=== PATIENT | female | born 1950 | race Caucasian/White ===

== ENCOUNTER 2021-06-01 09:29 | Outpatient (REF) | payer MEDICARE, OTHER, SELFPAY ==
--- NOTE | ~2021-06-01 | MM_ITS ---
EXAMINATION: BONE DENSITOMETRY CLINICAL INDICATION: History of known osteoporosis, follow up. Other specified disorders of bone density and structure. Screening for osteoporosis. COMPARISON: Previous BD dated 02/05/2019 and baseline BD dated 01/04/2017. TECHNIQUE: Using a [employer] DXA System (software version: 13.1) manufactured by [employer], dual-energy x-ray absorptiometry was performed of the lumbar spine and left hip. The images are of good technical quality. Summary results are attached. FINDINGS: AP SPINE L1-L4: Current: BMD 0.901 g/cm2, Z-score 0.1, T-score -2.3, osteopenia, 5.4% decrease from previous, 1.0% increase from baseline (<5% change is not significant). Prior: BMD 0.952 g/cm2. Baseline: BMD 0.892 g/cm2. LEFT FEMUR, NECK: Current: BMD 0.631 g/cm2, Z-score -0.9, T-score -2.9, osteoporosis. Prior: BMD 0.617 g/cm2. Baseline: BMD 0.694 g/cm2. LEFT FEMUR, TOTAL: Current: BMD 0.648 g/cm2, Z-score -1.0, T-score -2.9, osteoporosis, 6.4% increase from previous, 5.1% decrease from baseline (<5% change is not significant). Prior: BMD 0.609 g/cm2. Baseline: BMD 0.683 g/cm2. IDENTIFIED RISK FACTORS: Menopause. Glucocorticoids, (chronic). Renal disease. Osteoporosis. Secondary osteoporosis, (intestinal or bowel disease). HISTORY OF FRACTURE: None listed. MEDICATIONS: Fosamax. Calcium or multivitamin. Vitamin D. MM/XR DEXA axial skeleton IMPRESSION: 1. DIAGNOSIS: Osteoporosis based on the lowest T-score value of -2.9 in the femoral neck and total femur applying World Health Organization criteria. 2. 10-YEAR FRACTURE RISK PREDICTION, FRAX: Major osteoporotic fracture (clinical spine, forearm, hip or shoulder) 25.1%. Hip fracture 9.7%. 3. Treatment Recommendations: NOF guidelines recommend consideration for treatment in postmenopausal women and men age 50 and older presenting with the following: -A hip or vertebral (clinical or morphometric) fracture. -T-score less than or equal to -2.5 at the femoral neck or spine after appropriate evaluation to exclude secondary causes. -Low bone mass at the hip or spine and a 10-year fracture probability by FRAX of greater than or equal to 3% for hip fracture or greater than or equal to 20% for major osteoporotic fracture based on the [place] adapted WHO algorithm. 4. Other Recommendations: All treatment decisions require clinical judgment and consideration of individual patient factors, including patient preferences, comorbidities, previous drug use, risk factors not captured in the FRAX model (e.g. frailty, falls, vitamin D deficiency, increased bone turnover, interval significant decline in bone density) and possible under or overestimation of fracture risk by FRAX. Additional medical evaluation for secondary cause of low bone mineral density may be appropriate. FUTURE SCAN RECOMMENDATION: People with diagnosed cases of osteoporosis or at high risk for fracture should have regular bone mineral density tests. For patients eligible for Medicare, routine testing is allowed once every 2 years. The testing frequency can be increased to one year for patients who have rapidly progressing disease, those who are receiving or discontinuing medical therapy to restore bone mass, or have additional risk factors.
== END 2021-06-01 09:30 | disposition home or self-care (01) ==
LOC: HO.MAMMO 09:29
PROVIDERS: Visit Provider Internal Medicine Endocrinology, Diabetes & Metabolism
DX: M81.0 Age-related osteoporosis without current pathological fracture (principal); Z72.0 Tobacco use; E27.49 Other adrenocortical insufficiency; N28.9 Disorder of kidney and ureter, unspecified; Z79.899 Other long term (current) drug therapy
CPT/HCPCS: 77080

== ENCOUNTER 2022-01-10 15:57 | Outpatient (REF) | payer MEDICARE, OTHER, SELFPAY ==
--- NOTE | ~2022-01-10 | XR_ITS ---
EXAMINATION: XR KNEE, BILATERAL CLINICAL INFORMATION: Bilateral knee pain. COMPARISON: None TECHNIQUE: AP and lateral views of each knee. FINDINGS: 2 views of the right knee demonstrate moderate narrowing of the medial joint space compartment with marginal spurring. There is also some narrowing of the patellofemoral joint with spurring of the patellofemoral joint. There is stippled calcification about the distal right femoral diaphysis. This may be related to medullary infarct or enchondroma. No fracture or effusion identified. 2 views of the left knee demonstrates some mild narrowing of the medial and lateral joint space compartments with mild marginal spurring. There is also mild degenerative spurring patellofemoral joint. A small left knee effusion is present. XR/XR knee LT 2V IMPRESSION: Mild tricompartment degenerative change of the left knee with small left effusion. Moderate degenerative change of the medial joint space compartment and patellofemoral joint of the right knee. Distal right femoral enchondroma or medullary infarct.
--- NOTE | ~2022-01-10 | XR_ITS ---
EXAMINATION: XR KNEE, BILATERAL CLINICAL INFORMATION: Bilateral knee pain. COMPARISON: None TECHNIQUE: AP and lateral views of each knee. FINDINGS: 2 views of the right knee demonstrate moderate narrowing of the medial joint space compartment with marginal spurring. There is also some narrowing of the patellofemoral joint with spurring of the patellofemoral joint. There is stippled calcification about the distal right femoral diaphysis. This may be related to medullary infarct or enchondroma. No fracture or effusion identified. 2 views of the left knee demonstrates some mild narrowing of the medial and lateral joint space compartments with mild marginal spurring. There is also mild degenerative spurring patellofemoral joint. A small left knee effusion is present. XR/XR knee RT 2V IMPRESSION: Mild tricompartment degenerative change of the left knee with small left effusion. Moderate degenerative change of the medial joint space compartment and patellofemoral joint of the right knee. Distal right femoral enchondroma or medullary infarct.
== END 2022-01-10 15:58 | disposition home or self-care (01) ==
LOC: HO.XRAY 15:57
PROVIDERS: Absent Provider Student in an Organized Health Care Education/Training Program; PCP Student in an Organized Health Care Education/Training Program; Visit Provider Internal Medicine
DX: M25.561 Pain in right knee (principal); M25.562 Pain in left knee
CPT/HCPCS: 73560

== ENCOUNTER → 2023-06-12 09:45 | Outpatient (BNV) | payer MEDICARE, SELFPAY | PROVIDERS: PCP Student in an Organized Health Care Education/Training Program; Visit Provider Radiology Diagnostic Radiology | DX: M81.0 Age-related osteoporosis without current pathological fracture (principal) | CPT/HCPCS: 77080 ==

== ENCOUNTER 2023-06-12 09:47 | Outpatient (REF) | payer MEDICARE, OTHER, SELFPAY ==
--- NOTE | ~2023-06-12 | MM_ITS ---
EXAMINATION: BONE DENSITOMETRY CLINICAL INDICATION: Osteoporosis. COMPARISON: Previous BD dated 06/01/2021 and baseline BD dated 01/04/2017. TECHNIQUE: Using a [employer] DXA System (software version: 13.1) manufactured by [employer], dual-energy x-ray absorptiometry was performed of the lumbar spine and left hip. The images are of good technical quality. Summary results are attached. FINDINGS: AP SPINE L1-L4: Current: BMD 0.932 g/cm2, Z-score 0.2, T-score -2.1, osteopenia, 3.4% increase from previous, 4.5% increase from baseline (<5% change is not significant). Prior: BMD 0.901 g/cm2. Baseline: BMD 0.892 g/cm2. LEFT FEMUR, NECK: Current: BMD 0.608 g/cm2, Z-score -1.0, T-score -3.1, osteoporosis. Prior: BMD 0.631 g/cm2. Baseline: BMD 0.694 g/cm2. LEFT FEMUR, TOTAL: Current: BMD 0.650 g/cm2, Z-score -0.9, T-score -2.8, osteoporosis, 3.4% increase from previous, 4.5% increase from baseline (<5% change is not significant). Prior: BMD 0.648 g/cm2. Baseline: BMD 0.683 g/cm2. IDENTIFIED RISK FACTORS: Osteoporosis, renal, height loss. Secondary osteoporosis, glucocorticoids (chronic), menopause. HISTORY OF FRACTURE: None listed. MEDICATIONS: Calcium supplements or multivitamin, vitamin D, bisphosphonates. MM/XR DEXA axial skeleton IMPRESSION: 1. DIAGNOSIS: Osteoporosis based on the lowest T-score value of -3.1 in the femoral neck applying World Health Organization criteria. 2. 10-YEAR FRACTURE RISK PREDICTION, FRAX: According to the guidelines, FRAX calculation should only be performed on patients in the osteopenia bone density category. Therefore, FRAX was not performed on this patient. 3. Treatment Recommendations: NOF guidelines recommend consideration for treatment in postmenopausal women and men age 50 and older presenting with the following: -A hip or vertebral (clinical or morphometric) fracture. -T-score less than or equal to -2.5 at the femoral neck or spine after appropriate evaluation to exclude secondary causes. -Low bone mass at the hip or spine and a 10-year fracture probability by FRAX of greater than or equal to 3% for hip fracture or greater than or equal to 20% for major osteoporotic fracture based on the [place] adapted WHO algorithm. 4. Other Recommendations: All treatment decisions require clinical judgment and consideration of individual patient factors, including patient preferences, comorbidities, previous drug use, risk factors not captured in the FRAX model (e.g. frailty, falls, vitamin D deficiency, increased bone turnover, interval significant decline in bone density) and possible under or overestimation of fracture risk by FRAX. Additional medical evaluation for secondary cause of low bone mineral density may be appropriate. FUTURE SCAN RECOMMENDATION: People with diagnosed cases of osteoporosis or at high risk for fracture should have regular bone mineral density tests. For patients eligible for Medicare, routine testing is allowed once every 2 years. The testing frequency can be increased to one year for patients who have rapidly progressing disease, those who are receiving or discontinuing medical therapy to restore bone mass, or have additional risk factors.
== END 2023-06-12 09:48 | disposition home or self-care (01) ==
LOC: HO.MAMMO 09:47
PROVIDERS: PCP Student in an Organized Health Care Education/Training Program; Visit Provider Internal Medicine Endocrinology, Diabetes & Metabolism
DX: Z13.820 Encounter for screening for osteoporosis (principal); Z78.0 Asymptomatic menopausal state; M81.0 Age-related osteoporosis without current pathological fracture
CPT/HCPCS: 77080

== ENCOUNTER 2024-02-19 14:18 | Outpatient (REF) | payer MEDICARE, SELFPAY ==
--- NOTE | ~2024-02-19 | XR_ITS ---
EXAMINATION: XR HIP, LEFT CLINICAL INFORMATION: 73-year-old female with left anterior hip pain COMPARISON: None available. TECHNIQUE: Two views of the left hip. FINDINGS: No acute fracture or dislocation. Joint spaces are maintained. Calcified phleboliths in the pelvis. XR/XR hip LT min 2V IMPRESSION: * No acute osseous abnormality.
--- NOTE | ~2024-02-19 | XR_ITS ---
EXAMINATION: XR HAND/WRIST, RIGHT CLINICAL INFORMATION: Pain COMPARISON: None TECHNIQUE: 4 views of the hand left wrist FINDINGS: Tiny osseous fragment along the dorsal aspect of the fourth DIP joint may reflect sequela of age-indeterminate avulsion fracture, recommend correlation with point tenderness. Moderate osteophytosis of the hand/wrist with loss of first carpometacarpal joint space, spurring at the distal interphalangeal joints and subchondral cystic change in the scaphoid. No cortical erosion. Soft tissues are unremarkable. XR/XR hand wrist RT IMPRESSION: 1. Tiny osseous fragment along the dorsal aspect of the fourth DIP joint may reflect sequela of age-indeterminate avulsion fracture, recommend correlation with point tenderness. 2. Moderate degenerative changes of the hand/wrist, worst involving the first carpometacarpal joint space.
== END 2024-02-19 14:19 | disposition home or self-care (01) ==
LOC: HO.XRAY 14:18
PROVIDERS: PCP Student in an Organized Health Care Education/Training Program; Visit Provider Family Medicine
DX: M79.605 Pain in left leg (principal); M25.531 Pain in right wrist
CPT/HCPCS: 73110; 73130; 73502

== ENCOUNTER 2024-11-19 09:51 | Outpatient (REF) | payer MEDICARE, SELFPAY ==
--- OUTSIDE RECORDS SUMMARY | 2024-11-19 09:55 | XMS_ITS | Data Portability ---
Author Organization MATTHEW Kg Brito [facility] Surgeons [facility], [facility] Address [address] [place] [address] Care Team Providers Care Office Services Assistant Name Role Phone [employer] Primary Care Provider Assessment No assessment recorded. Plan of Treatment Reminders Order Date Submit Date Provider Last Modified By Organization Details Last Modified Time Details Appointments INJECTION ONLY 15 2024 09:45A Lorie Delgado PA-C Not available Not available Not available INJECTION ONLY 15 2024 01:00P Lorie Delgado PA-C Not available Not available Not available Lab None recorded. Referral None recorded. Procedures None recorded. Surgeries None recorded. Imaging XR, knee, 4 or more view - rm 201. $ V Bilat knee. DS 2023 024 [facility], [address] [facility] [address], [place], [address], 04/03/2024 13:53:10 Medication Orders None recorded. Patient TargetsNo targets recorded. Patient InstructionsNo instructions recorded. Reason for Referral None Reported. Results Created Date Observation Date Name Description Value Unit Range Abnormal Flag Note LastModifiedBy Organization Detail LastModifiedTime 07/17/2009/16/2020 imagi ng/di agnos tic resul t No observ ation record ed. [email or web address] Not Available 06/20 23:10:26 07/17/20 24 04/18/2023 imagi ng/di agnos tic resul t No observ ation record ed. [email or web address] Not Available 06/20 23:10:42 07/17/20 24 06/13/2023 imagi ng/di agnos tic resul t No observ ation record ed. [email or web address] Not Available 06/20 23:10:46 07/17/20 24 06/13/2023 imagi ng/di agnos tic resul t No observ ation record ed. [email or web address] Not Available 06/20 23:10:47 Result Notes None recorded. Problems Name Problem SNOMED Code Status Onset Date Resolution Date Notes Provider Name and Address Organization Details Recorded Time Idiopathic osteoarthri tis 786764194 Active 2019 Problem Code: M19.041; Problem Code Type: ICD-10; Status: 'A'; Not Available [facility] 10:57:43 Problem Notes None recorded. Procedures Surgical History Date Name Laterality Status Provider Name and Address Organization Details Recorded Time 4 Knee Kenalog 40 1cc Injection, Bilateral completed Michi Delgado, PA-C [address], [place], [address], [facility] 11/17/2024 14:12:22 4 Sports Knee 4&1 completed Michi Delgado, PA-C [address], [place], [address], [facility] 08/13/2024 07:38:18 4 Gel-One Knee Injection completed Michi Delgado PA-C [address], [place], [address], [facility] 05/25/2024 07:39:22 4 Knee Kenalog 40 1cc Injection, Bilateral completed Michi Delgado, PA-C [address], [place], [address], [facility] 03/13/2024 07:35:42 Imaging Results Imaging Date Name Status LastModified by Organiz ation Details LastModified Time 09/16/2020 imaging/diag nostic result completed Information not available 07/17/2024 23:10:26 04/18/2023 imaging/diag nostic result completed Information not available 07/17/2024 23:10:42 06/13/2023 imaging/diag nostic result completed Information not available 07/17/2024 23:10:46 06/13/2023 imaging/diag nostic result completed Information not available 07/17/2024 23:10:47 Procedure Notes None recorded. Medical Equipment None Reported. Allergies Allergen ID Allergen Name Allergen Category Reaction Reaction Severity Criticality Documentation Date Start Date Code Code System Note Provider Name and Address Organization Details Recorded Time 492333 Non-stero idal anti-infl ammatory agent (product) medicatio n Not available Not available Not available 10/20/2024 20031 005 SNOMED DAR[place]ING GAL[place] - [facility] 15:08:44 59563 Iodinated contrast media (substanc e) medicatio n Not available Not available Not available 01/20/20242017 08303 2004 SNOMED Aller gyNam e: 'ivp dye'; Not Available [facility] 4 11:38:48 63153 erythromy jennifer medicatio n Not available Not available Not available 01/20/20242022 4053 RxNorm Not Available [facility] 4 11:38:48 Medications Name Sig Start Date Stop Date Status Note LastModified by Organization Details LastModified Time medbox status USE DIRECTED active Not Available Not Available No t Available amoxicillin 500 mg capsule TAKE 1 CAPSULE BY MOUTH 3 TIMES DAILY FOR 7 DAYS. 03/12 completed Not Available Not Available Not Available vitamin A 2,400 mcg capsule TAKE ONE CAPSULE EVERY MORNING active Not Available Not Available No t Available loperamide 2 mg capsule TAKE TWO CAPSULES FOUR TIMES DAILY active Not Available Not Available No t Available valacyclovi r 1 gram tablet TAKE ONE TABLET EVERY TWELVE HOURS active Not Available Not Available No t Available alendronate 70 mg tablet TAKE 1 TABLET ONCE A WEEK WITH 6 TO 8 OZ OF WATER 30 MINUTES BEFORE FIRST FOOD OF THE DAY. DO NOT LIE DOWN FOR 30 MINUTES. active Not Available Not Available No t Available fluorouraci l 5 % topical cream Apply twice daily on face FOR two weeks, then twice weekly for maintenan ce. active Not Available Not Available No t Available clindamycin HCl 150 mg capsule TAKE ONE CAPSULE FOUR TIMES DAILY FOR 10 DAYS active Not Available Not Available No t Available diphenoxyla te-atropine 2.5 mg-0.025 mg tablet TAKE ONE TABLET BY MOUTH FOUR TIMES DAILY NEEDED active Not Available Not Available No t Available tramadol 50 mg tablet TAKE 1 TABLET EVERY 6 HOURS BY ORAL ROUTE AFTER MEAL(S). 2023 active Not Available Not Available Not Avai lable acetaminoph en 500 mg tablet TAKE TWO TABLETS EVERY 8 HOURS NEEDED FOR PAIN active Not Available Not Available No t Available Celebrex 200 mg capsule Take 1 capsule every day by oral route. 2023 active Not Available Not Available Not Avai lable meloxicam 7.5 mg tablet TAKE ONE TABLET TWICE DAILY WITH MEALS active Not Available Not Available No t Available magnesium oxide 400 mg (241.3 mg magnesium) tablet TAKE ONE TABLET EVERY MORNING active Not Available Not Available No t Available ferrous sulfate 325 mg (65 mg iron) tablet TAKE ONE TABLET THREE TIME DAILY IN THE MORNING, AT NOON, AND IN THE EVENING active Not Available Not Available No t Available triamcinolo ne acetonide 0.1 % topical ointment APPLY TO AFFECTED AREA TWICE DAILY FOR 2 WEEKS, BREAK FOR 1 WEEK THEN REPEAT CYCLE NEEDED active Not Available Not Available No t Available omeprazole 20 mg capsule,del ayed release TAKE 1 CAPSULE BY MOUTH EVERY MORNING BEFORE BREAKFAST active Not Available Not Available No t Available folic acid 1 mg tablet TAKE ONE TABLET AT NOON active Not Available Not Available No t Available furosemide 20 mg tablet TAKE 1 TABLET (20 MG TOTAL) BY MOUTH ONE TIME EACH DAY active Not Available Not Available No t Available pyridoxine (vitamin B6) 100 mg tablet TAKE ONE TABLET DAILY AT NOON active Not Available Not Available No t Available ergocalcife rol (vitamin D2) 1,250 mcg (50,000 unit) capsule TAKE ONE CAPSULE THREE TIMES PER WEEK (saturday, saturday , saturday) EVERY MORNING active Not Available Not Available No t Available paroxetine 40 mg tablet TAKE 1 TABLET BY MOUTH EVERY MORNING active Not Available Not Available No t Available cholecalcif dorian (vitamin D3) 125 mcg (5,000 unit) capsule TAKE ONE CAPSULE EVERY MORNING active Not Available Not Available No t Available metoprolol tartrate 25 mg tablet TAKE 1 TABLET BY MOUTH EVERY MORNING active Not Available Not Available No t Available calcium 250 mg (as citrate) tablet TAKE THREE TABLETS THREE TIMES DAILY active Not Available Not Available No t Available vitamin E (dl, acetate) 180 mg (400 unit) capsule TAKE ONE CAPSULE DAILY AT NOON active Not Available Not Available No t Available Cerovite Senior 0.4 mg-300 mcg-250 mcg tablet TAKE ONE TABLET EVERY EVENING active Not Available Not Available No t Available Gattex 30-Vial 5 mg subcutaneou s kit active Not Available Not Available Not Available Vitals Date Recorded Body height Body mass index (BMI) Body weight Provider Name and Address Organization Details Last Updated DateTime 03/12/2024 157.48 cm 21.6 kg/m2 18040.9 g XOCHILT BREMichelle [facility] 03/12/2024 09:36:53 Date Recorded Body height Provider Name an d Address Organization Details Last Updated DateTime 05/25/2024 157.48 cm XOCHILT LARNATHANKELLY [facility] 05/25/2024 10:59:47 Date Recorded Body height Body mass index (BMI) Body weight Provider Name and Address Organization Details Last Updated DateTime 08/13/2024 157.48 cm 21.6 kg/m2 33725.9 g CARITO GARCIA [facility] 08/13/2024 09:38:18 Date Recorded Body height Provider Name an d Address Organization Details Last Updated DateTime 11/04/2024 157.48 cm XOCHILT CONCEPCIONNATHANKELLY [facility] 11/04/2024 10:31:31 Social History None recorded. Functional Status None recorded. Mental Status None recorded. Family History Nothing Reported. Medical History No medical history recorded. Gynecological HistoryNo gynecological history recorded. Obstetrics History GPAL:G 0 P 0 0 0 0 Past Encounters Encounter ID Performer Location Encounter Start Date Encounter Closed Date Diagnosis/Indication Diagnosis SNOMED-CT Code Diagnosis ICD10 Code [id number] GHISLAINE [facility] [address] [facility] [address] 03/12/2024 09:18:13 04/03/2024 13:53:10 Pain of bilateral knee joints 1539267379 00915 M25.561 M25.562 Osteoarthr itis of right knee joint 3717932430 36256 M17.11 Osteoarthr itis of left knee joint 4385561622 76976 M17.12 [id number] Michi Delgado PA-C [address] [place] [address] 05/25/2024 10:58:41 06/12/2024 14:26:20 Osteoarthritis of right knee joint 8026635285 99899 M17.11 [id number] Michi Delgado PA-C [address] [place] [address] 08/13/2024 09:28:59 09/04/2024 11:25:42 Osteoarthritis of left knee joint 3766470934 05643 M17.12 [id number] Michi Delgado PA-C [address] [place] [address] 11/04/2024 10:29:23 11/17/2024 14:12:48 Osteoarthritis of right knee joint 0841891087 53456 M17.11 Osteoarthr itis of left knee joint 6713458987 68450 M17.12 Health Concerns Section Related Observation LastModified by Organization Detai ls LastModified Time None Recorded Concern Status LastModified by Organization Details LastModified Time None Recorded Advance Directives Directive None Recorded Payers Encounter Date Sequence Insurance Name Policy Number Policy Corona Covered Member ID Corona Member ID Guarantor Name 03/12/2024 2 [place] [id number] June Barger [id number] June Barger 03/12/2024 1 [place] [employer] [place] June Barger [id number] June Barger 05/25/2024 2 [place] [id number] June Barger [id number] 19 June Barger 05/25/2024 1 [place] [employer] [employer] [place] June Barger [id number] June Barger 08/13/2024 2 [place] [id number] June Barger [id number] June Barger 08/13/2024 1 [place] [employer] [place] June Barger [id number] 6 June Barger 11/04/2024 2 [place] [id number] June Barger [id number] June Barger 11/04/2024 1 [place] [facility] [employer] June Barger [id number] 6 June Barger Notes Date Note Type Note Provider Name and Address Organization Details Recorded Time 03/12/2024 text/html I am seeing the patient today under the supervision of Dr. Nuno who was available but who did not see the patient.History:[This pleasant woman presents today for what turns L3 bilaterally pain. X-rays states she has had problems for a number of years. In her left knee she had a cortisone injection with mild relief. She states pain has been off and on. Mostly getting up from seated position. Now is more constant. She has pain radiates from her left hip down her left leg. Right knee gives her trouble also feels swollen at times. She has trouble bending getting out of a tub. Cannot get up from seated position on the side either. PMH/PSH/MEDS/ALL/FMH/S OC HX/ROS are reviewed in detail, updated and located in the patient's chart. General Exam: Vital signs are as noted belowMental status: Alert and lucid. Normal insight, affect and grooming.[employer]: Gross motor coordination is intact. No spasticity or clonus noted.Extremities: [Calves are soft non tender, skin intact. ]Orthopedic Examination:Patient has a negative straight leg raise bilaterally.Right Hip: [ ] Hip exam shows no tenderness to palpation. There is full range of motion throughout all planes without irritability. There is full muscle strength. There is negative straight leg raise. Negative for signs of impingement.Left Hip: [ ] Hip exam shows no tenderness to palpation. There is full range of motion throughout all planes without irritability. There is full muscle strength. There is negative straight leg raise. Negative for signs of impingement.Right Knee: Slight varus alignment. Tenderness to palpation medially. Mild effusion. No erythema or warmth. Range of motion 0-120.Tenderrness at the borders of the patella.Left Knee: Neutral alignment. Tenderness laterally as well as borders of the patella. Mild effusion. No erythema or warmth. Range of motion 0-120.Peripheral, vascular, lymphatic examination, skin, neurological, coordination, reflexes, sensation are within normal limits. X-rays ordered, obtained and reivewed at [facility], 4 views of the Knees bilaterally including a standing AP, Vera view, nonweightbearing lateral views, and merchant view. These radiographs demonstrate Endstage medial compartment arthritis on Vera view of the right knee lateral compartment [id number] on the left. Advanced patellofemoral arthritis right side more so than left. Assessment:Bilateral knee arthritis PLAN: The patient was thoroughly counseled today regarding knee condition. Its natural history and the options, both operative and nonoperative. The nature of knee replacement surgery, the potential risks, benefits, and complications, the magnitude of the surgery, the intensity of postoperative recovery as well as its elective nature was explained at length today. Issues regarding lifelong infection and activity precautions were reviewed. The longevity of the implants was discussed. The patient understands the potential need for revision surgery within the next 15 years. The patient understands the potential complexity of a revision situation as well.In regards to today's visit and in discussion of conservative treatment options. We have gone over Tylenol, use of anti-inflammatories, role of physical therapy, as well as intra-articular cortisone injections.After reviewing risks benefits and obtained verbal consent. The patient's Knees bilaterally were injected with 1 cc of Kenalog 40 mg/cc, 4 cc of Marcaine and 1/4%. They tolerated this procedure well. We may repeat cortisone injections every 3 months.If at any point the patient wishes to further pursue total knee arthroplasty should call our office be seen by either myself or one of our total joint surgeons and further booked for total knee replacement. [facility] speech recognition owner/photographer software was used to create portions of this document. An attempt at proofreading has been made to minimize errors. Please call for corrections. Michi Delgado PA-C [address], [place], [address], [facility] - [facility] 03/13/2024 07:36:15 05/25/2024 text/html I am seeing the patient today under the supervision of who was available but who did not see the patient. Reason For VisitPatient is here today for Martín shell 1 injection right knee. Patient reports no adverse reaction from previous injections. Physical Findings Evaluation of the knees reveal no evidence of infection, no significant joint effusion, no warmth, or erythema. The injection sites are benign. Calves are supple and nontender. 5/5 strength. Some discomfort with range of motion. Assessment? ? Osteoarthritis of knee -right knee Plan After meticulous sterile preparation, the right knee was injected with 1 vial of Martín gel 1. Post-injection precautions were reviewed. I recommend ice, restriction of activities and re-evaluation next week for follow up injection. Michi Delgado PA-C [address], [place], [address], [place] - [facility] 06/08/2024 07:48:44 08/13/2024 text/html I am seeing the patient today under the supervision of {{Nurys* Nas}} who was available but who did not see the patient. Chief ComplaintThe patient presents today for recheck of {{left* right}} knee osteoarthritis. Is known to have knee arthritis treated conservatively to this point with {{1 2 3*}} months relief of symptoms. Presents today for recheck secondary to increased knee pain. Past Medical/Surgical HistoryReviewed today, otherwise unchanged per intake sheet. Physical Findings General Appearance:?? Well developed. ?? In no acute distress.Musculoskelet al System:Knee:General/bi lateral: ?? No laxity of the knee.Right Knee: ? ? Medial aspect was tender on palpation. ?? No erythema. ?? No warmth.Left Knee: ? ? Medial aspect was tender on palpation. ?? No erythema. ?? No warmth.Musculoskeletal Scales:General/bilater al: ? ? Mild effusion noted.Neurological:?? Oriented to time, place, and person.Gait And Stance: ?? Normal.Psychiatric:?? Mood was appropriate to the affect. Left knee 0-120 degrees of flexion with discomfort. Assessment? ? Osteoarthritis of knee - PlanMore than 50% of todays visit was spent on direct patient counseling regarding their knee condition and treatment options both operative with knee arthroplasty and non-operative, including oral medications and injection therapy. After discussion, my clinical decision was to go forth with an intra-articular cortisone injection. After explaining risks and benefits, under meticulous aseptic technique, the knee was injected with, 1cc of Kenalog 40mgs and 4 cc of Marcaine 1/4%. They tolerated the procedures well. Post injection precautions reviewed. Follow up with us in 3 months for further discussion of total knee replacement surgery versus continued conservative treatment. we will obtain authorization for Martín gel 1 bilaterally Michi Delgado PA-C [address], [place], [address], [place] - [facility] 08/13/2024 12:32:05 11/04/2024 text/html I am seeing the patient today under the supervision of Dr. Nuno who was available but who did not see the patient.History:[This pleasant woman presents today for what turns L3 bilaterally pain. X-rays states she has had problems for a number of years. In her left knee she had a cortisone injection with mild relief. She states pain has been off and on. Mostly getting up from seated position. Now is more constant. She has pain radiates from her left hip down her left leg. Right knee gives her trouble also feels swollen at times. She has trouble bending getting out of a tub. Cannot get up from seated position on the side either. PMH/PSH/MEDS/ALL/FMH/S OC HX/ROS are reviewed in detail, updated and located in the patient's chart. General Exam: Vital signs are as noted belowMental status: Alert and lucid. Normal insight, affect and grooming.[employer]: Gross motor coordination is intact. No spasticity or clonus noted.Extremities: [Calves are soft non tender, skin intact. ]Orthopedic Examination:Patient has a negative straight leg raise bilaterally.Right Hip: [ ] Hip exam shows no tenderness to palpation. There is full range of motion throughout all planes without irritability. There is full muscle strength. There is negative straight leg raise. Negative for signs of impingement.Left Hip: [ ] Hip exam shows no tenderness to palpation. There is full range of motion throughout all planes without irritability. There is full muscle strength. There is negative straight leg raise. Negative for signs of impingement.Right Knee: Slight varus alignment. Tenderness to palpation medially. Mild effusion. No erythema or warmth. Range of motion 0-120.Tenderrness at the borders of the patella.Left Knee: Neutral alignment. Tenderness laterally as well as borders of the patella. Mild effusion. No erythema or warmth. Range of motion 0-120.Peripheral, vascular, lymphatic examination, skin, neurological, coordination, reflexes, sensation are within normal limits. X-rays ordered, obtained and [facility]wed at [facility], 4 views of the Knees bilaterally including a standing AP, Vera view, nonweightbearing lateral views, and merchant view. These radiographs demonstrate Endstage medial compartment arthritis on Vera view of the right knee lateral compartment [id number] on the left. Advanced patellofemoral arthritis right side more so than left. Assessment:Bilateral knee arthritis PLAN: The patient was thoroughly counseled today regarding knee condition. Its natural history and the options, both operative and nonoperative. The nature of knee replacement surgery, the potential risks, benefits, and complications, the magnitude of the surgery, the intensity of postoperative recovery as well as its elective nature was explained at length today. Issues regarding lifelong infection and activity precautions were reviewed. The longevity of the implants was discussed. The patient understands the potential need for revision surgery within the next 15 years. The patient understands the potential complexity of a revision situation as well.In regards to today's visit and in discussion of conservative treatment options. We have gone over Tylenol, use of anti-inflammatories, role of physical therapy, as well as intra-articular cortisone injections.After reviewing risks benefits and obtained verbal consent. The patient's Knees bilaterally were injected with 1 cc of Kenalog 40 mg/cc, 4 cc of Marcaine and 1/4%. They tolerated this procedure well. We may repeat cortisone injections every 3 months.If at any point the patient wishes to further pursue total knee arthroplasty should call our office be seen by either myself or one of our total joint surgeons and further booked for total knee replacement. [facility] speech recognition owner/photographer software was used to create portions of this document. An attempt at proofreading has been made to minimize errors. Please call for corrections. Michi Delgado PA-C [address], [place], [address], [place] - [facility] 11/17/2024 14:12:46 OBGyn Episode No OBEpisode recorded.
--- OUTSIDE RECORDS SUMMARY | 2024-11-19 09:55 | XMS_ITS | Continuity of Care Document ---
Author Organization [place] - [facility], [facility] Address [address] [place] [address] Assessment No assessment recorded. Plan of Treatment Reminders Order Date Submit Date Provider Last Modified By Organization Details Last Modified Time Details Appointments None record ed. Lab None record ed. Referral None record ed. Procedures None record ed. Surgeries None record ed. Imaging None record ed. Medication Orders None record ed. Patient TargetsNo targets recorded. Patient InstructionsNo instructions recorded. Reason for Referral None Reported. Problems Name Problem SNOMED Code Status Onset Date Resolution Date Notes Provider Name and Address Organization Details Recorded Time Candidal otitis externa 07795692 Active 2014 Candidal otitis externa; Note: Date Diagnosed : 08/23/2015 12:31 PM (B37.84) resolved Not [facility] 4 02:[facility] Ulcerativ e rhinitis [id number] Active 2018 Nasal mucositis (ulcerati ve); Note: Date Diagnosed : 10/23/2019 5:33 PM (J34.81) Nasal mucositis (ulcerati ve); Note: Date Diagnosed : 08/23/2015 12:33 PM (J34.81) [mapped from ICD9 code: 389.18] ; Start Date : 5 Not Available [facility] 4 02:19:41 Sensorine ural hearing loss of bilateral ears [id number] Active 2014 Sensorine ural hearing loss bilateral ly; Note: Date Diagnosed : 08/23/2015 11:58 AM (389.18) Sensori neural hearing loss, bilateral ; Note: Date Diagnosed : 08/23/2015 11:35 AM (H90.3) Not Available [facility] 4 02:19:34 Disorder of pharynx 92834651 Active 2014 Vestibuli tis Nasal; Note: Date Diagnosed : 08/23/2015 12:31 PM (478.20) Not Available [facility] 4 02:19:32 Otitis externa of bilateral ears [id number] 99098 Active 2014 Other otitis externa, bilateral ; Note: Date Diagnosed : 5 6:53 AM (H60.8X3) Not Available [facility] 4 02:19:48 Problem Notes None recorded. Medical Equipment None Reported. Allergies Allergen ID Allergen Name Allergen Category Reaction Reaction Severity Criticality Documentation Date Start Date Code Code System Note Provider Name and Address Organization Details Recorded Time 14470 Iodinated contrast media (substanc e) medicatio n other Not available Not available 03/31/2024 65092 2003 SNOMED React ion: unkno wn, unspe cifie d;; Not Available [facility] 4 00:51:34 88395 erythromy jennifer ethylsucc inate medicatio n other Not available Not available 03/31/2024 4056 RxNorm React ion: unkno wn, unspe cifie d;; Not Available [facility] 4 00:51:34 Medications Name Sig Start Date Stop Date Status Note LastModified by Organization Details LastModified Time loperamid e 2 mg capsule 2018 active Medicati on ID: [id number] D uration Value: 30 Brand Name: loperami de Send Method: E-Prescr ibed Sub s Allowed: subs OK Speci al Instruct ion: TAKE TWO CAPSULES FOUR TIMES DAILY Me dication GenericN peggy: loperami de Not Available Not Available Not Available Lotrisone 1 %-0.05 % topical cream 11/09 completed Medicati on ID: [id number] Pr escribed By Name: Cristiano Enriquez nd Name: Lotrison e Send Method: E-Prescr ibed Sub s Allowed: subs OK Speci al Instruct ion: apply to external ear tid X 2 weeks Me dication GenericN peggy: Lotrison e Not Available Not Available Not Available alendrona te 70 mg tablet 2018 active Medicati on ID: [id number] D uration Value: 28 Brand Name: alendron ate Send Method: E-Prescr ibed Sub s Allowed: subs OK Speci al Instruct ion: TAKE 1 TABLET ONCE A WEEK WITH 6 TO 8 OZ OF WATER 30 MINUTES BEFORE FI RST FOOD OF THE DAY. DO NOT LIE DOWN FOR 30 MINUTES. Medicat ionGener icName: alendron ate Not Available Not Available Not Available diphenoxy late-atro pine 2.5 mg-0.025 mg tablet 2014 active Medicati on ID: [id number] Du ration Value: 30 Brand Name: diphenox ylate-at ropine S end Method: E-Prescr ibed Sub s Allowed: subs OK Medic ationGen ericName : diphenox ylate-at ropine Not Available Not Available Not Available Remicade 100 mg intraveno us solution 2014 active Medicati on ID: [id number] Br and Name: Remicade Send Method: E-Prescr ibed Sub s Allowed: subs OK Medic ationGen ericName : Remicade Not Available Not Available Not Available azathiopr ine 50 mg tablet 2014 active Medicati on ID: [id number] Du ration Value: 30 Brand Name: azathiop rine Sen d Method: E-Prescr ibed Sub s Allowed: subs OK Medic ationGen ericName : azathiop rine Not Available Not Available Not Available amlodipin e 5 mg tablet 2018 active Medicati on ID: [id number] D uration Value: 90 Brand Name: amlodipi ne Send Method: E-Prescr ibed Sub s Allowed: subs OK Speci al Instruct ion: TAKE ONE TABLET BY MOUTH EVERY DAY Medi cationGe nericNam e: amlodipi ne Not Available Not Available Not Available triamcino lone acetonide 0.1 % topical cream 1 a small amount to affected area 2015 active Medicati on ID: [id number] D uration Value: 14 Prescri bed By Name: Yaneth osuna MD Brand Name: triamcin olone acetonid e Send Method: E-Prescr ibed Sub s Allowed: subs OK Medic ationGen ericName : triamcin olone acetonid e Not Available Not Available Not Available potassium citrate ER 10 mEq (1,080 mg) tablet,ex tended release 2018 active Medicati on ID: [id number] D uration Value: 30 Brand Name: renetta campos citrate Send Method: E-Prescr ibed Sub s Allowed: subs OK Speci al Instruct ion: TAKE ONE TABLET THREE TIMES DAILY Me dication GenericN peggy: renetta campos citrate Not Available Not Available Not Available diphenhyd ramine 25 mg capsule 2018 active Medicati on ID: [id number] D uration Value: 30 Brand Name: diphenhy dramine HCl Send Method: E-Prescr ibed Sub s Allowed: subs OK Speci al Instruct ion: TAKE TWO CAPSULES 20 TO 30 minutes BEFORE bedtime NEEDED Lorie Garzatutuic Name: diphenhy dramine HCl Not Available Not Available Not Available ferrous sulfate 325 mg (65 mg iron) tablet 2018 active Medicati on ID: [id number] D uration Value: 30 Brand Name: ferrous sulfate Send Method: E-Prescr ibed Sub s Allowed: subs OK Speci al Instruct ion: TAKE ONE TABLET THREE TIMES DAILY Me dication GenericN peggy: ferrous sulfate Not Available Not Available Not Available Vitamin B-6 100 mg tablet 2018 active Medicati on ID: [id number] D uration Value: 30 Brand Name: Vitamin B-6 Send Method: E-Prescr ibed Sub s Allowed: subs OK Speci al Instruct ion: TAKE ONE TABLET DAILY Me dication GenericN peggy: Vitamin B-6 Not Available Not Available Not Available beta carotene 10,000 unit capsule 2014 active Medicati on ID: [id number] Br and Name: beta carotene Send Method: E-Prescr ibed Sub s Allowed: subs OK Medic ationGen ericName : beta carotene Not Available Not Available Not Available omeprazol e 20 mg capsule,d elayed release 2014 active Medicati on ID: [id number] Du ration Value: 30 Brand Name: omeprazo le Send Method: E-Prescr ibed Sub s Allowed: subs OK Medic ationGen ericName : omeprazo le Not Available Not Available Not Available folic acid 1 mg tablet 2014 active Medicati on ID: [id number] Du ration Value: 30 Brand Name: folic acid Sen d Method: E-Prescr ibed Sub s Allowed: subs OK Medic ationGen ericName : folic acid Not Available Not Available Not Available hydrochlo rothiazid e 25 mg tablet 2018 active Medicati on ID: [id number] D uration Value: 90 Brand Name: hydrochl orothiaz jonnie Send Method: E-Prescr ibed Sub s Allowed: subs OK Speci al Instruct ion: TAKE ONE TABLET BY MOUTH EVERY DAY Medi cationGe nericNam e: hydrochl orothiaz jonnie Not Available Not Available Not Available mupirocin 2 % topical ointment 2018 active Medicati on ID: [id number] D uration Value: 14 Brand Name: mupiroci n Send Method: E-Prescr ibed Sub s Allowed: subs OK Speci al Instruct ion: APPLY TO THE AFFECTED AREA(S) SPARINGL Y THREE TIMES DAILY Me dication GenericN peggy: mupiroci n Not Available Not Available Not Available triamcino lone acetonide 0.1 % lotion 1 a small amount to skin 2014 active Medicati on ID: [id number] D uration Value: 14 Prescri bed By Name: Yaneth osuna MD Brand Name: triamcin olone acetonid e Send Method: E-Prescr ibed Sub s Allowed: subs OK Medic ationGen ericName : triamcin olone acetonid e Not Available Not Available Not Available paroxetin e 40 mg tablet 2014 active Medicati on ID: [id number] Du ration Value: 30 Brand Name: paroxeti ne HCl Send Method: E-Prescr ibed Sub s Allowed: subs OK Medic ationGen ericName : paroxeti ne HCl Not Available Not Available Not Available ferrous sulfate 325 mg (65 mg iron) tablet,de layed release 2014 active Medicati on ID: [id number] Br and Name: ferrous sulfate Send Method: E-Prescr ibed Sub s Allowed: subs OK Medic ationGen ericName : ferrous sulfate Not Available Not Available Not Available Vitamin D2 1,250 mcg (50,000 unit) capsule 2018 active Medicati on ID: [id number] D uration Value: 28 Brand Name: Vitamin D2 Send Method: E-Prescr ibed Sub s Allowed: subs OK Speci al Instruct ion: TAKE ONE CAPSULE BY MOUTH THREE TIMES A WEEK Med icationG enericNa me: Vitamin D2 Not Available Not Available Not Available clindamyc in 1 % lotion 2018 active Medicati on ID: [id number] D uration Value: 14 Brand Name: goyo rodriguez phosphat e Send Method: E-Prescr ibed Sub s Allowed: subs OK Speci al Instruct ion: Apply to leg once daily. Lorie kevyngerdaaidan Rex Name: goyo rodriguez phosphat e Not Available Not Available Not Available valsartan 40 mg tablet 2014 active Medicati on ID: [id number] Du ration Value: 30 Brand Name: valsarta n Send Method: E-Prescr ibed Sub s Allowed: subs OK Medic ationGen ericName : valsarta n Not Available Not Available Not Available Vitamin D3 25 mcg (1,000 unit) tablet 2014 active Medicati on ID: [id number] Du ration Value: 30 Brand Name: Vitamin D3 Send Method: E-Prescr ibed Sub s Allowed: subs OK Medic ationGen ericName : Vitamin D3 Not Available Not Available Not Available metoprolo l tartrate 25 mg tablet 2018 active Medicati on ID: [id number] D uration Value: 30 Brand Name: metoprol ol tartrate Send Method: E-Prescr ibed Sub s Allowed: subs OK Speci al Instruct ion: TAKE ONE TABLET DAILY Me dication GenericN peggy: metoprol ol tartrate Not Available Not Available Not Available calcium 250 mg (as citrate) tablet 2018 active Medicati on ID: [id number] D uration Value: 27 Brand Name: calcium citrate Send Method: E-Prescr ibed Sub s Allowed: subs OK Speci al Instruct ion: TAKE THREE TABLETS BY MOUTH THREE TIMES DAILY Me dication GenericN peggy: calcium citrate Not Available Not Available Not Available calcium 600 mg (as carbonate )-vitamin D3 10 mcg (400 unit) tablet 2014 active Medicati on ID: [id number] Br and Name: calcium carbonat e-vitami n D3 Send Method: E-Prescr ibed Sub s Allowed: subs OK Medic ationGen ericName : calcium carbonat e-vitami n D3 Not Available Not Available Not Available cholecalc iferol (vitamin D3) 125 mcg/mL (5,000 unit/mL) oral drops 2018 active Medicati on ID: [id number] D uration Value: 118 Brand Name: cholecal ciferol (vitamin D3) Send Method: E-Prescr ibed Sub s Allowed: subs OK Speci al Instruct ion: TK 1 ML PO QD Medic ationGen ericName : cholecal ciferol (vitamin D3) Not Available Not Available Not Available Vitals None Recorded Social History None recorded. Functional Status None recorded. Mental Status None recorded. Family History Nothing Reported. Medical History No medical history recorded. Gynecological HistoryNo gynecological history recorded. Obstetrics History GPAL:G 0 P 0 0 0 0 Past Encounters Encounter ID Performer Location Encounter Start Date Encounter Closed Date Diagnosis/Indication Diagnosis SNOMED-CT Code Diagnosis ICD10 Code [id number] [facility]ENNIFER DE LA [facility] [address] [address] 08/27/2024 09:38:53 08/31/2024 08:18:14 Sensorineural hearing loss of bilateral ears [id number] H90.3 Health Concerns Section Related Observation LastModified by Organization Detai ls LastModified Time None Recorded Concern Status LastModified by Organization Details LastModified Time None Recorded Payers Encounter Date Sequence Insurance Name Policy Number Policy Corona Covered Member ID Corona Member ID Guarantor Name 08/27/2024 2 [facility] June Barger [id number] June Barger 08/27/2024 1 MEDICARE [place]: [facility] June Barger [id number] 6 June Barger Notes Date Note Type Note Provider Name and Address Organization Details Recorded Time 08/27/2024 text/html Shortened appointment as she left 1 of her HAs at home. She got a new phone and her was having difficulty pairing the aids to the jimmy. He was able to connect it to the BT. I encouraged her to have him delete the jimmy and reinstall it which worked. She is concerned that Tap Control is still copnnected. I do not believe it is but I showed her on the jimmy how she can check and connect or disconnect it. I also explained that just by touching her aids it will not activate Tap Control and that a very deliberate double tap is needed to activate it. She will call if she continues to have issues. MORAIMA SEGURA, [facility] [address] [facility],[place] [address], [place], [address], [facility] - [facility] 08/27/2024 09:43:13 OBGyn Episode No OBEpisode recorded.
[2024-11-19 14:00] LABS: MANUAL DIFF FLAG NO
[2024-11-19 14:09] LABS: Basophils Absolute Auto 0.1 X10*3/uL (0.0-0.2); Basophils Percent Auto 0.7 % (0-2); Eosinophils Absolute Auto 0.3 X10*3/uL (0.0-0.4); Eosinophils Percent Auto 3.1 % (0-4); Hematocrit 38.5 % (37.0-47.0); Hemoglobin 12.3 g/dl (12.0-16.0); Imm Gran Abs Auto 0.03 X10*3/uL (0.00-0.03); Imm Gran Pct Auto 0.3 % (0.0-0.4); Lymphocytes Absolute Auto 1.6 X10*3/uL (1.2-4.9); Lymphocytes Percent Auto 17.6 % (20-40); Mean Corpuscular HGB Conc 31.9 g/dl (31.0-35.0); Mean Corpuscular Hemoglobin 31.8 pg (27.0-33.0); Mean Corpuscular Volume 99.5 fL (80.0-98.0); Mean Platelet Volume 11.1 fL (9.4-12.3); Monocytes Absolute Auto 0.7 X10*3/uL (0.1-1.2); Monocytes Percent Auto 8.3 % (2-11); Neutrophils Absolute Auto 6.2 x10*3/uL (2.0-8.3); Platelet Count 198 X10*3/uL (160-400); Red Blood Count 3.87 X10*6/uL (4.20-5.50); Red Cell Distribution Width 12.9 % (11.0-16.0); White Blood Count 8.8 X10*3/uL (4.8-10.8)
[2024-11-19 14:19] LABS: Alanine Aminotransferase 33 U/L (0-31); Albumin Level 3.3 g/dL (3.5-5.0); Alkaline Phosphatase 62 U/L (39-117); Anion Gap 10 (12-20); Aspartate Amino Transferase 34 U/L (5-31); Bilirubin Direct < 0.2 mg/dL (0.0-0.5); Bilirubin Total 0.2 mg/dL (0.0-1.0); Blood Urea Nitrogen 18 mg/dL (9-16); Calcium 8.3 mg/dL (8.4-10.2); Carbon Dioxide 24 mmol/L (22-29); Chloride 110 mmol/L (96-108); Cholesterol 118 mg/dL (<200); Estimated Glomerular Filt Rate 30; Glucose Random 84 mg/dL (60-115); HDL Cholesterol 39 mg/dL (>40); LDL Cholesterol Calculated 51 mg/dL (<100); Potassium 4.2 mmol/L (3.3-5.1); Sodium 140 mmol/L (135-145); Total Protein 5.7 g/dL (6.5-8.0); Triglycerides 144 mg/dL (<150)
== END 2024-11-19 09:52 | disposition home or self-care (01) ==
LOC: HO.CHCLDS 09:51
PROVIDERS: Visit Provider Student in an Organized Health Care Education/Training Program
DX: N18.2 Chronic kidney disease, stage 2 (mild) (principal); D63.1 Anemia in chronic kidney disease; I10 Essential (primary) hypertension
CPT/HCPCS: 36415; 80048; 80061; 80076; 85025

== ENCOUNTER 2024-12-12 10:23 | Outpatient (REF) | payer MEDICARE, SELFPAY ==
--- NOTE | ~2024-12-12 | XR_ITS ---
EXAMINATION: XR FOOT 3 OR MORE VIEWS LEFT HISTORY: left foot pain COMPARISON: There are no prior studies available for comparison. FINDINGS: Three views of the left foot are submitted. Osseous mineralization is normal. There is no fracture or dislocation. There is mild osteoarthritis of the 1st MTP joint with joint space narrowing and osteophyte formation. There are soft tissue calcifications between the 2nd and 3rd MTP joints. XR/XR foot LT min 3V IMPRESSION: Mild osteoarthritis of the 1st MTP joint. Soft tissue calcifications between the 2nd and 3rd MTP joints of uncertain significance. Electronically signed by: Ciro Abreu MD 12/14/2024 10:55 AM EST
--- OUTSIDE RECORDS SUMMARY | 2024-12-12 10:26 | XMS_ITS | Encounter Summary ---
Author Organization [employer] Address [address] [place] [id number] Care Team Providers Care Adjunct Physics Instructor Name Role Phone Sarah Roe MD Primary Care Provider [phone] Reason for Referral * Imaging (Routine) - Closed Specialty Diagnoses / Procedures Referred By Salinas bingham Referred To Contact Radiology Diagnoses Encounter for screening mammogram for breast cancer Procedures BI Mammogram Screening Tomosynthesis Bilateral Sarah Roe MD [address] [place] [address] Phone: tel: fax: [address] Phone: tel: fax: Referral ID Status Reason Start Date Expiration Date Visits Re quested Visits Authorized [id number] Closed 11/19/2024 11/19/2025 1 1 Encounter Details Date Type Department Care Team (Late st Contact Info) Description 11/19/2024 9:00 AM EST Office Visit [facility] [address] [place], [place] [phone] Sarah Roe MD [address] [place], [place] [phone] Essential hypertension (Primary Dx); Stage 3b chronic kidney disease (CMS/HCC); 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 I have dayron lazo 11/10/[address] you li ve. Do you have problems with any of the following? None of the above 11/10/2024 Food Insecurity Answer Date Recorded Within the past 12 months, y ou worried that your food would run out before you got money to buy more: Never True 11/10/2024 Within the past 12 months,th e food you bought just didn't last and you didn't have enough money to get more: Never True Transportation Answer Date Recorded In the past 12 months, has l ack of transportation kept you from medical appts, meetings, work or from getting things needed for daily living? No 11/10/2024 Utilities Answer Date Recorded In the past 12 months, has t he electric, gas, oil or water company threatened to shut off services in your home? No 11/10/2024 Depression Answer Date Recorded Patient Health Questionnaire-2 Score 0 11/19/2024 Internet Access Answer Date Recorded Internet Access Q1 Yes 11/10/2024 Internet Access Q2 Not on file 11/10/2024 Comments Unknown Sex and Gender Information Value Date Recorded Sex Assigned at Female 09/17/2022 10:28 AM EDT Legal Sex Female 10:28 AM EDT Gender Identity Female 09/17/2022 10:28 AM EDT Sexual Orientation Straight 09/17/2022 10 :28 AM EDT documented as of this encounter Last Filed Vital Signs Vital Sign Reading Time Taken Comments Blood Pressure 136/74 11/19/2024 9:14 AM EST Pulse 74 11/19/2024 9:14 AM EST Temperature 37 ??C (98.6 ??F) 11/19/2024 9:14 AM EST Respiratory Rate 18 11/19/2024 9:14 AM EST Oxygen Saturation 98% 11/19/2024 9:14 AM EST Inhaled Oxygen Concentration - - Weight 51.2 kg (112 lb 12.8 oz) 11/19/2024 9:14 AM EST Height 154.9 cm (5' 1 ) 11/19/2024 9:14 AM EST Body Mass Index 21.31 11/19/2024 9:14 AM EST documented in this encounter Progress Notes * Sarah Roe MD - 11/19/2024 9:00 AM EST Subjective Patient ID: June Barger is a 74 y.o. female who presents for No chief complaint on file.. Hypertension This is a chronic problem. The current episode started more than 1 year ago. The problem is controlled. Pertinent negatives include no chest pain, headaches, neck pain, palpitations or shortness of breath. Risk factors for coronary artery disease include family history. Review of Systems Constitutional: Negative. Respiratory: Negative. Negative for shortness of breath. Cardiovascular: Negative for chest pain and palpitations. Gastrointestinal: Negative. Genitourinary: Negative. Musculoskeletal: Negative for neck pain. Neurological: Negative for headaches. Objective Physical Exam Constitutional: Appearance: Normal appearance. HENT: Head: Normocephalic and atraumatic. Right Ear: Tympanic membrane normal. Left Ear: Tympanic membrane normal. Mouth/Throat: Mouth: Mucous membranes are moist. Eyes: Pupils: Pupils are equal, round, and reactive to light. Cardiovascular: Rate and Rhythm: Normal rate and regular rhythm. Pulses: Normal pulses. Heart sounds: Normal heart sounds. Pulmonary: Effort: Pulmonary effort is normal. Breath sounds: Normal breath sounds. Abdominal: General: Abdomen is flat. Palpations: Abdomen is soft. Musculoskeletal: General: Normal range of motion. Skin: General: Skin is warm. Neurological: General: No focal deficit present. Mental Status: She is alert. Psychiatric: Mood and Affect: Mood normal. Behavior: Behavior normal. Assessment/Plan Diagnoses and all orders for this visit: Essential hypertension Maintain a low-sodium diet (less than 2 grams per day). Maintain a regular cardiovascular exercise program. Advised to maintain a low-fat, low-cholesterol diet. Counseled regarding importance of weight loss. Counseled re: potential co-morbidities including cardiovascular disease. 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 Comments: Follows up with GI uptodate with Colonoscopy Anxiety Comments: Stable on Paxil Encounter for screening mammogram for breast cancer - BI Mammogram Screening Tomosynthesis Bilateral; Future Anemia of chronic renal failure, stage 2 (mild) Comments: Labs ordered Orders: - CBC auto differential; Future documented in this encounter Plan of Treatment Not on file documented as of this encounter Procedures Procedure Name Priority Date/Time Associated Diagnosis Comments BI MAMMOGRAM SCREENING TOMOSYNTHESIS BILATERAL Routine 12/09/2024 Encounter for screening mammogram for breast cancer CBC WITH AUTO DIFFERENTIAL Routine 11/19/2024 9:53 AM EST Anemia of chronic renal failure, stage 2 (mild) HEPATIC FUNCTION PANEL Routine 11/19/2024 9:53 AM EST Essential hypertension LIPID PANEL, STANDARD Routine 11/19/2024 9:53 AM EST Essential hypertension BASIC METABOLIC PANEL Routine 11/19/2024 9:53 AM EST Essential hypertension documented in this encounter Results * BI Mammogram Screening Tomosynthesis Bilateral (12/09/2024) Anatomical Region Laterality Modality Breast Bilateral Mammography us Sarah Roe MD IMG BI PROCEDURES Final Result * (ABNORMAL) CBC auto differential (11/19/2024 9:53 AM EST) White Blood Count 8.8 4.8 - 10.8 X10*3/uL [facility] Red Blood Count 3.87(L) 4.20 - 5.50 X10*6/uL [facility] Hemoglobin 12.3 12.0 - 16.0 g/dl [facility] Hematocrit 38.5 37.0 - 47.0 % [facility] Mean Corpuscular Volume 99.5(H) 80.0 - 98.0 fL [facility] Mean Corpuscular Hemoglobin 31.8 27.0 - 33.0 pg [facility] Mean Corpuscular HGB Conc 31.9 31.0 - 35.0 g/dl [facility] Red Cell Distribution Width 12.9 11.0 - 16.0 % [facility] Platelet Count 198 160 - 400 X10*3/uL [facility] Mean Platelet Volume 11.1 9.4 - 12.3 fL [facility] Neutrophils Percent Auto 70.0 45 - 73 % [facility] Imm Gran Pct Auto 0.3 0.0 - 0.4 % [facility] Lymphocytes Percent Auto 17.6(L) 20 - 40 % [facility] Monocytes Percent Auto 8.3 2 - 11 % [facility] Eosinophils Percent Auto 3.1 0 - 4 % [facility] Basophils Percent Auto 0.7 0 - 2 % [facility] NRBC Pct Auto 0.0 0.0 - 0.2 /100WBC [facility] Neutrophils Absolute Auto 6.2 2.0 - 8.3 x10*3/uL [facility] Imm Gran Abs Auto 0.03 0.00 - 0.03 X10*3/uL [facility] Lymphocytes Absolute Auto 1.6 1.2 - 4.9 X10*3/uL [facility] Monocytes Absolute Auto 0.7 0.1 - 1.2 X10*3/uL [facility] Eosinophils Absolute Auto 0.3 0.0 - 0.4 X10*3/uL [facility] Basophils Absolute Auto 0.1 0.0 - 0.2 X10*3/uL [facility] NRBC Abs Auto 0.000 0.0 - 0.012 X10*3/uL [facility] Blood Venous blood specimen / Unknown 11/19/2024 9:53 AM EST 11/19/2024 1:57 PM EST us Sarah Roe MD LAB BLOOD ORDERABLES Final Resul t [facility] [address] [place] [phone] * (ABNORMAL) Hepatic Function Panel (11/19/2024 9:53 AM EST) Bilirubin, Total 0.2 0.0 - 1.0 mg/dL [facility] Bilirubin, Direct <0.2 0.0 - 0.5 mg/dL [facility] Aspartate Amino Transferase 34(H) 5 - 31 U/L [facility] Alanine Aminotransferase 33(H) 0 - 31 U/L [facility] Total Protein 5.7(L) 6.5 - 8.0 g/dL [facility] Albumin Level 3.3(L) 3.5 - 5.0 g/dL [facility] Alkaline Phosphatase 62 39 - 117 U/L [facility] Blood Venous blood specimen / Unknown 11/19/2024 9:53 AM EST 11/19/2024 1:57 PM EST us Sarah Roe MD LAB BLOOD ORDERABLES Final Resul t [facility] [address] [place] [phone] * (ABNORMAL) Lipid Panel, Standard (11/19/2024 9:53 AM EST) Triglycerides 144 <150 mg/dL [facility] Comment:Desirable Triglyceri de: less than 150 mg/dLBorderline High Triglyceride 150-199 mg/dLHigh Triglyceride: 200-499 mg/dLVery High Triglyceride: greater than or equal to 5OO mg/dL Cholesterol 118 <200 mg/dL [facility] Comment:Desirable Cholestero l: less than 200 mg/dLBorderline High Cholesterol: 200-239 mg/dLHigh Cholesterol: greater than 239 mg/dL LDL Cholesterol Calculated 51 <100 mg/dL [facility] Comment:Desirable LDL: less than 100 mg/dLNear Optimal/Above Optimal LDL: 110- 129 mg/dLBorderline High LDL: 130-159 mg/dLHigh LDL: 160-189 mg/dLVery High LDL: greater than or equal to 190 mg/dL HDL Cholesterol 39(L) >40 mg/dL [facility] Comment:Desirable HDL: great er than 40 mg/dL Note: This HDL assay may give artificially low results in patients with liver disease. Blood Venous blood specimen / Unknown 11/19/2024 9:53 AM EST 11/19/2024 1:57 PM EST Sarah Roe MD LAB BLOOD ORDERABLES Final Resul t Performing Organization Address [facility] Co de Phone Number [facility] [address] [place] [address] [phone] * (ABNORMAL) Basic Metabolic Panel (11/19/2024 9:53 AM EST) Sodium 140 135 - 145 mmol/L [facility] Potassium 4.2 3.3 - 5.1 mmol/L [facility] Chloride 110(H) 96 - 108 mmol/L [facility] Carbon Dioxide 24 22 - 29 mmol/L [facility] Anion Gap 10(L) 12 - 20 [facility] Urea Nitrogen (BUN) 18(H) 9 - 16 mg/dL [facility] Creatinine, Serum 1.69(H) 0.5 - 1.4 mg/dL [facility] Estimated Glomerular Filt Rate 30 [facility] Comment:Chronic Kidney Disea se: Estimated GFR < 60 mL/min/[id number] Kidney Disease: Estimated GFR < 15 mL/min/1.73m2 Glucose 84 60 - 115 mg/dL [facility] Calcium 8.3(L) 8.4 - 10.2 mg/dL [facility] Blood Venous blood specimen / Unknown 11/19/2024 9:53 AM EST 11/19/2024 1:57 PM EST Sarah Roe MD LAB BLOOD ORDERABLES Final Resul t Performing Organization Address [facility]/ZIP Co de Phone Number [facility] [address] [place] [phone] documented in this encounter Visit Diagnoses Diagnosis Essential hypertension- Primary Unspecified essential hypertension Stage 3b chronic kidney disease (CMS/HCC) 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
--- OUTSIDE RECORDS SUMMARY | 2024-12-12 10:26 | XMS_ITS | Encounter Summary ---
Author Organization [employer] Address [address] [facility] [address] [place] [address] Care Team Providers Care Choreography Director Name Role Phone Sarah Roe MD Primary Care Provider Encounter Details Date Type Department Care Team (Latest Contact Info) Description 11/19/2024 Travel Social History Tobacco Use Types Packs/Day Years [...] AM EDT documented as of this encounter Plan of Treatment Not on file documented as of this encounter Visit Diagnoses Not on filedocumented in this encounter Additional Health Concerns Assessment Noted Time PHQ-9 Depression Total Score: 0 11/19/19 25 9:15 AM EST documented as of this encounter Care Teams Choreography Director Relationship Specialty Start Date End Date Sarah Roe MD [address] [place] [address] PCP - General Family Medicine 09/19/15 documented as of this encounter
--- OUTSIDE RECORDS SUMMARY | 2024-12-12 10:26 | XMS_ITS | Data Portability ---
Author Organization [place] [facility], Allergy Address [address] [address] Assessment No assessment recorded. Plan of Treatment [...] Organization Details Recorded Time Candidal otitis externa [id number] Active 2014 Candidal otitis externa; Note: Date Diagnosed : 08/23/2015 12:31 PM (B37.84) resolved Not Available [facility] 4 02:19:45 Ulcerativ e rhinitis [id number] Active 2018 Nasal mucositis (ulcerati ve); Note: Date Diagnosed : 10/23/2019 5:33 PM (J34.81) Nasal mucositis (ulcerati ve); Note: Date Diagnosed : 08/23/2015 12:33 PM (J34.81) [mapped from ICD9 code: 389.18] ; Start Date : 5 Not Available [facility] 4 02:19:41 Sensorine ural hearing loss of bilateral ears [id number] Active 2014 Sensorine ural hearing loss bilateral ly; Note: Date Diagnosed : 08/23/2015 11:58 AM (389.18) Sensori neural hearing loss, bilateral ; Note: Date Diagnosed : 08/23/2015 11:35 AM (H90.3) Not Available [facility] 4 02:19:34 Disorder of pharynx 68101753 Active 2014 Vestibuli tis Nasal; Note: Date Diagnosed : 08/23/2015 12:31 PM (478.20) Not Available [facility] 4 02:19:32 Otitis externa of bilateral ears [id number] 66560 Active 2014 Other otitis externa, bilateral ; Note: Date Diagnosed : 5 6:53 AM (H60.8X3) Not Available [facility] 4 02:19:48 Problem Notes None recorded. Medical Equipment None Reported. Allergies Allergen ID Allergen Name Allergen Category Reaction Reaction Severity Criticality Documentation Date Start Date Code Code System Note Provider Name and Address Organization Details Recorded Time 99082 Iodinated contrast media (substanc e) medicatio n other Not available Not available 03/31/2024 12016 2003 SNOMED React ion: unkno wn, unspe cifie d;; Not Available [facility] 4 00:51:34 62721 erythromy jennifer ethylsucc inate medicatio n other Not available Not available 03/31/2024 4056 RxNorm React ion: unkno wn, unspe cifie d;; Not Available [facility] 4 00:51:34 Medications Name Sig Start Date Stop Date Status Note LastModified by Organization Details LastModified Time loperamid e 2 mg capsule 2018 active Medicati on ID: [id number] D uration Value: 30 Brand Name: loperami de Send Method: E-Prescr ibed Sub s Allowed: subs OK Speci al Instruct ion: TAKE TWO CAPSULES FOUR TIMES DAILY Me dication GenericN peggy: loperami de Not Available Not Available Not Available Lotrisone 1 %-0.05 % topical cream 11/09 completed Medicati on ID: [id number] Pr escribed By Name: Cristiano Enriquez nd Name: Lotrison e Send Method: E-Prescr ibed Sub s Allowed: subs OK Speci al Instruct ion: apply to external ear tid X 2 weeks Me dication GenericN peggy: Lotrison e Not Available Not Available Not Available alendrona te 70 mg tablet 2018 active Medicati on ID: [id number] D uration Value: 28 Brand Name: alendron [...] mg tablet 2014 active Medicati on ID: [id number] Du ration Value: 30 Brand Name: diphenox ylate-at ropine S end Method: E-Prescr ibed Sub s Allowed: subs OK Medic ationGen ericName : diphenox ylate-at ropine Not Available Not Available Not Available Remicade 100 mg intraveno us solution 2014 active Medicati on ID: [id number] Br and Name: Remicade Send Method: E-Prescr ibed Sub s Allowed: subs OK Medic ationGen ericName : Remicade Not Available Not Available Not Available azathiopr ine 50 mg tablet 2014 active Medicati on ID: [id number] Du ration Value: 30 Brand Name: azathiop rine Sen d Method: E-Prescr ibed Sub s Allowed: subs OK Medic ationGen ericName : azathiop rine Not Available Not Available Not Available amlodipin e 5 mg tablet 2018 active Medicati on ID: [id number] D uration Value: 90 Brand Name: amlodipi ne Send Method: E-Prescr ibed Sub s Allowed: subs OK Speci al Instruct ion: TAKE ONE TABLET BY MOUTH EVERY DAY Medi cationGe nericNam e: amlodipi ne Not Available Not Available Not Available triamcino lone acetonide 0.1 % topical cream 1 a small amount to affected area 2015 active Medicati on ID: [id number] D uration Value: 14 Prescri bed By Name: Yaneth osuna MD Brand Name: triamcin olone acetonid e Send Method: E-Prescr ibed Sub s Allowed: subs OK Medic ationGen ericName : triamcin olone acetonid e Not Available Not Available Not Available potassium citrate ER 10 mEq (1,080 mg) tablet,ex tended release 2018 active Medicati on ID: [id number] D uration Value: 30 Brand Name: renetta campos citrate Send Method: E-Prescr ibed Sub s Allowed: subs OK Speci al Instruct ion: TAKE ONE TABLET THREE TIMES DAILY Me dication GenericN peggy: renetta campos citrate Not Available Not Available Not Available diphenhyd ramine 25 mg capsule 2018 active Medicati on ID: [id number] D uration Value: 30 Brand Name: diphenhy dramine HCl Send Method: E-Prescr ibed Sub s Allowed: subs OK Speci al Instruct ion: TAKE TWO CAPSULES 20 TO 30 minutes BEFORE bedtime NEEDED Lorie Garzatutuic Name: diphenhy dramine HCl Not Available Not Available Not Available ferrous sulfate 325 mg (65 mg iron) tablet 2018 active Medicati on ID: [id number] D uration Value: 30 Brand Name: ferrous sulfate Send Method: E-Prescr ibed Sub s Allowed: subs OK Speci al Instruct ion: TAKE ONE TABLET THREE TIMES DAILY Me dication GenericN peggy: ferrous sulfate Not Available Not Available Not Available Vitamin B-6 100 mg tablet 2018 active Medicati on ID: [id number] D uration Value: 30 Brand Name: Vitamin B-6 Send Method: E-Prescr ibed Sub s Allowed: subs OK Speci al Instruct ion: TAKE ONE TABLET DAILY Me dication GenericN peggy: Vitamin B-6 Not Available Not Available Not Available beta carotene 10,000 unit capsule 2014 active Medicati on ID: [id number] Br and Name: beta carotene Send Method: E-Prescr ibed Sub s Allowed: subs OK Medic ationGen ericName : beta carotene Not Available Not Available Not Available omeprazol e 20 mg capsule,d elayed release 2014 active Medicati on ID: [id number] Du ration Value: 30 Brand Name: omeprazo le Send Method: E-Prescr ibed Sub s Allowed: subs OK Medic ationGen ericName : omeprazo le Not Available Not Available Not Available folic acid 1 mg tablet 2014 active Medicati on ID: [id number] Du ration Value: 30 Brand Name: folic acid Sen d Method: E-Prescr ibed Sub s Allowed: subs OK Medic ationGen ericName : folic acid Not Available Not Available Not Available hydrochlo rothiazid e 25 mg tablet 2018 active Medicati on ID: [id number] D uration Value: 90 Brand Name: hydrochl orothiaz jonnie Send Method: E-Prescr ibed Sub s Allowed: subs OK Speci al Instruct ion: TAKE ONE TABLET BY MOUTH EVERY DAY Medi cationGe nericNam e: hydrochl orothiaz jonnie Not Available Not Available Not Available mupirocin 2 % topical ointment 2018 active Medicati on ID: [id number] D uration Value: 14 Brand Name: mupiroci n Send Method: E-Prescr ibed Sub s Allowed: subs OK Speci al Instruct ion: APPLY TO THE AFFECTED AREA(S) SPARINGL Y THREE TIMES DAILY Me dication GenericN peggy: mupiroci n Not Available Not Available Not Available triamcino lone acetonide 0.1 % lotion 1 a small amount to skin 2014 active Medicati on ID: [id number] D uration Value: 14 Prescri bed By Name: Yaneth osuna MD Brand Name: triamcin olone acetonid e Send Method: E-Prescr ibed Sub s Allowed: subs OK Medic ationGen ericName : triamcin olone acetonid e Not Available Not Available Not Available paroxetin e 40 mg tablet 2014 active Medicati on ID: [id number] Du ration Value: 30 Brand Name: paroxeti ne HCl Send Method: E-Prescr ibed Sub s Allowed: subs OK Medic ationGen ericName : paroxeti ne HCl Not Available Not Available Not Available ferrous sulfate 325 mg (65 mg iron) tablet,de layed release 2014 active Medicati on ID: [id number] Br and Name: ferrous sulfate Send Method: E-Prescr ibed Sub s Allowed: subs OK Medic ationGen ericName : ferrous sulfate Not Available Not Available Not Available Vitamin D2 1,250 mcg (50,000 unit) capsule 2018 active Medicati on ID: [id number] D uration Value: 28 Brand Name: Vitamin D2 Send Method: E-Prescr ibed Sub s Allowed: subs OK Speci al Instruct ion: TAKE ONE CAPSULE BY MOUTH THREE TIMES A WEEK Med icationG enericNa me: Vitamin D2 Not Available Not Available Not Available clindamyc in 1 % lotion 2018 active Medicati on ID: 655328 D uration Value: 14 Brand Name: goyo rodriguez phosphat e Send Method: E-Prescr ibed Sub s Allowed: subs OK Speci al Instruct ion: Apply to leg once daily. Lorie monteiro Rex Name: goyo rodriguez phosphat e Not Available Not Available Not Available valsartan 40 mg tablet 2014 active Medicati on ID: 26927 Du ration Value: 30 Brand Name: valsarta n Send Method: E-Prescr ibed Sub s Allowed: subs OK Medic ationGen ericName : valsarta n Not Available Not Available Not Available Vitamin D3 25 mcg (1,000 unit) tablet 2014 active Medicati on ID: 23332 Du ration Value: 30 Brand Name: Vitamin D3 Send Method: E-Prescr ibed Sub s Allowed: subs OK Medic ationGen ericName : Vitamin D3 Not Available Not Available Not Available metoprolo l tartrate 25 mg tablet 2018 active Medicati on ID: [id number] D uration Value: 30 Brand Name: metoprol ol tartrate Send Method: E-Prescr ibed Sub s Allowed: subs OK Speci al Instruct ion: TAKE ONE TABLET DAILY Me dication GenericN peggy: metoprol ol tartrate Not Available Not Available Not Available calcium 250 mg (as citrate) tablet 2018 active Medicati on ID: [id number] D uration Value: 27 Brand Name: calcium citrate Send Method: E-Prescr ibed Sub s Allowed: subs OK Speci al Instruct ion: TAKE THREE TABLETS BY MOUTH THREE TIMES DAILY Me dication GenericN peggy: calcium citrate Not Available Not Available Not Available calcium 600 mg (as carbonate )-vitamin D3 10 mcg (400 unit) tablet 2014 active Medicati on ID: [id number] Br and Name: calcium carbonat e-vitami n D3 Send Method: E-Prescr ibed Sub s Allowed: subs OK Medic ationGen ericName : calcium carbonat e-vitami n D3 Not Available Not Available Not Available cholecalc iferol (vitamin D3) 125 mcg/mL (5,000 unit/mL) oral drops 2018 active Medicati on ID: [id number] D uration Value: 118 Brand Name: cholecal [...] Diagnosis/Indication Diagnosis SNOMED-CT Code Diagnosis ICD10 Code Diagnosis Note [id number] JENNIFER DE LA [facility] of [address] [address] 08/27/2024 09:38:53 08/31/2024 08:18:14 Sensorineural hearing loss of bilateral ears [id number] H90.3 Health Concerns Section Related Observation LastModified by Organization Detai ls LastModified Time None Recorded Concern Status LastModified by Organization Details LastModified Time None Recorded Advance Directives Directive None Recorded Payers Encounter Date Sequence Insurance Name Policy Number Policy Corona Covered Member ID Corona Member ID Guarantor Name 08/27/2024 2 [facility] June Barger [id number] 19 June Barger 08/27/2024 1 MEDICARE B-[place]: [employer] [facility] June Barger [id number] 6 June Barger Notes Date Note Type [...] she continues to have issues. MORAIMA SEGURA, [facility] [address] [facility],[place] [address], [place], [address], [facility] - [facility] 08/27/2024 09:43:13 OBGyn Episode No OBEpisode recorded.
--- OUTSIDE RECORDS SUMMARY | 2024-12-12 10:27 | XMS_ITS | Encounter Summary ---
Author Organization [employer] Address [address] [facility] 7[address] [place] [address] Care Team Providers Care Hospitality Host Name Role Phone Sarah Roe MD Primary Care Provider [phone] Reason for Visit * Reason Comments Foot Pain Encounter Details Date Type Department Care Team ([facility] st Contact Info) Description 12/12/2024 9:40 AM EST Office Visit [facility] [address] [place] [address] Left foot pain (Primary Dx) Social History Tobacco Use Types Packs/Day Years Used Date Smoking Tobacco: Never Smokeless Tobacco: Never Tobacco Cessation:Counseling Given: Not Answered Alcohol Use Standard Drinks/Week Comments Never 0 [...] Sign Reading Time Taken Comments Blood Pressure 140/71 12/12/2024 9:11 AM EST Pulse 69 12/12/2024 9:11 AM EST Temperature 37 ??C (98.6 ??F) 12/12/2024 9:11 AM EST Respiratory Rate 17 12/12/2024 9:11 AM EST Oxygen Saturation - - Inhaled Oxygen Concentration - - Weight 52.3 kg (115 lb 6.4 oz) 12/12/2024 9:11 A M EST Height 154.9 cm (5' 1 ) 12/12/2024 9:11 AM EST Body Mass Index 21.8 12/12/2024 9:11 AM EST documented in this encounter Plan of Treatment Scheduled Orders Name Type Priority Associated Diagnoses Orde r Schedule XR Foot 3+ Views Left Imaging Routine Left foot pain Expected: 12/12/2024, Expires: 12/12/2025 CBC auto differential Lab Routine Left foot pain Expected: 12/12/2024 (Approximate), Expires: 12/12/2025 C-reactive Protein Lab Routine Left foot pain Expected: 12/12/2024 (Approximate), Expires: 12/12/2025 Uric acid Lab Routine Left foot pain Expected: 12/12/2024 (Approximate), Expires: 12/12/2025 documented as of this encounter Visit Diagnoses Diagnosis Left foot pain- Primary Pain in soft tissues of limb documented in this encounter Additional Health Concerns Assessment Noted Time PHQ-9 Depression Total Score: 0 11/19/19 9:15 AM EST documented as of this encounter Care Teams Hospitality Host Relationship Specialty Start Date End Date Sarah Roe MD [address] [place] [address] PCP - General Family Medicine 09/19/15 documented as of this encounter
--- OUTSIDE RECORDS SUMMARY | 2024-12-12 10:27 | XMS_ITS | Encounter Summary ---
Author Organization [employer] Address [address] [facility] [address] [place] [address] Care Team Providers Care Rotary Adjuster Name Role Phone Sarah Roe MD Primary Care Provider Reason for Visit * Reason Onset Date Comments Referral 09/25/2024 Encounter Details Date Type Department Care Team ([facility] st Contact Info) Description 09/25/2024 Telephone [facility] [address] [place] [address] Sarah Roe MD [address] [place] [address] Referral Social History Tobacco Use Types Packs/Day Years Used Date Smoking Tobacco: Never Smokeless Tobacco: Never Alcohol Use Standard Drinks/Week Comments Never 0 (1 standard drink = 0.6 oz pur e alcohol) Housing Stability Answer Date Recorded What is your housing situation today? I have housing today, but I am worried about losing housing in the future 09/11/[address] you li ve. Do you have problems with any of the following? None of the above 09/11/2023 Food Insecurity Answer Date Recorded Within the past 12 months, y ou worried that your food would run out before you got money to buy more: Never True 09/11/2023 Within the past 12 months,th e food you bought just didn't last and you didn't have enough money to get more: Never True Transportation Answer Date Recorded In the past 12 months, has l ack of transportation kept you from medical appts, meetings, work or from getting things needed for daily living? No 09/11/2023 Utilities Answer Date Recorded In the past 12 months, has t he electric, gas, oil or water company threatened to shut off services in your home? No 09/11/2023 Comments Unknown Sex and Gender Information Value Date Recorded Sex Assigned at Female 09/17/2022 10:28 AM EDT Legal Sex Female 10:28 AM EDT Gender Identity Female 09/17/2022 10:28 AM EDT Sexual Orientation Straight 09/17/2022 10 :28 AM EDT documented as of this encounter Miscellaneous Notes * Telephone Encounter - Karyn Arellano - 09/28/2024 12:[address] Roe. Referral for podiatry requires chart notes documentation. Please have patient scheduled, thank you. * Telephone Encounter - Rayna Fermin - 09/25/2024 3:23 PM EST Tc from pt returning call, would like to update provider listed for referral, states they are requesting to see Dr. Anselmo Shields not Jorge Luis Shields DPM. Advised will leave message as FYI. 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
--- OUTSIDE RECORDS SUMMARY | 2024-12-12 10:27 | XMS_ITS | Encounter Summary ---
Author Organization [employer] Address [address] [place] [address] [address] [place] [address] Care Team Providers Care Business Analyst Name Role Phone Sarah Roe MD Primary Care Provider [phone] Encounter Details Date Type Department Care Team (Latest Contact Info) Description 09/06/2021 [facility] CONVERSIONS Dental, Provider, DDS Social History Tobacco Use Types Packs/Day Years Used Date Smoking Tobacco: Never Assessed Comments Unknown Sex and Gender Information Value [...] on filedocumented in this encounter Care Teams Business Analyst Relationship Specialty Start Date End Date Sarah Roe MD [address] [place] [id number] PCP - General Family Medicine 09/19/15 documented as of this encounter
--- OUTSIDE RECORDS SUMMARY | 2024-12-12 10:27 | XMS_ITS | Data Portability ---
Author Organization [facility]THE[facility], [facility] Address [address] [place] [address] Care Team Providers Care Funeral Director And Embalmer Name Role Phone [facility] Primary Care Provider [phone] Assessment No assessment recorded. Plan of Treatment Reminders Order Date Submit Date Provider Last Modified By Organization Details Last Modified Time Details Appointments INJECTION ONLY 15 2024 03:15P Lorie Delgado PA-C Not available Not available Not available RECHECK 15 2024 01:00P Lorie Delgado PA-C Not available Not available Not available Lab None recorded. Referral None recorded. Procedures None recorded. Surgeries None recorded. Imaging XR, knee, 4 or more view - rm 201. $ V Bilat knee. DS 2023 024 [facility], [address] [facility], [address], [place], [address], 04/03/2024 13:53:10 Medication Orders None recorded. Patient TargetsNo targets recorded. Patient InstructionsNo instructions recorded. Reason for Referral None Reported. Results Created Date Observation Date Name Description Value Unit Range Abnormal Flag Note LastModifiedBy Organization Detail LastModifiedTime 07/17/20 24 09/16/2020 imagi ng/di agnos tic resul t No [...] Organization Details Recorded Time Idiopathic osteoarthri tis 734803960 Active 2019 Problem Code: M19.041; Problem Code Type: ICD-10; Status: 'A'; Not Available Formerly [facility] 10:57:43 Problem Notes None recorded. Procedures Surgical History Date Name Laterality Status Provider Name and Address Organization Details Recorded Time 4 Knee Kenalog 40 1cc Injection, Bilateral completed Michi Delgado, PA-C [address], [place], [address], [facility] 11/17/2024 14:12:22 4 Sports Knee 4&1 completed Michi Delgado, PA-C [address], [place], [address], [facility] 08/13/2024 07:38:18 4 Gel-One Knee Injection completed Michi Delgado PA-C [address], [place], [address], [facility] 05/25/2024 07:39:22 4 Knee Kenalog 40 1cc Injection, Bilateral completed Michi Delgado, PA-C [address], [place], [address], [facility] 03/13/2024 07:35:42 Imaging Results [...] Name and Address Organization Details Recorded Time 408605 Non-stero idal anti-infl ammatory agent (product) medicatio n Not available Not available Not available 10/20/2024 51939 005 SNOMED [place] - [facility] 15:08:44 83967 Iodinated contrast media (substanc e) medicatio n Not available Not available Not available 01/20/20242017 51836 2004 SNOMED Aller gyNam e: 'ivp dye'; Not Available Former[facility] 4 11:38:48 34215 erythromy jennifer medicatio n Not available Not available Not available 01/20/20242022 4053 RxNorm Not Available [facility] 4 11:38:48 Medications Name Sig Start Date [...] Updated DateTime 03/12/2024 157.48 cm 21.6 kg/m2 52090.9 g XOCHILT CONCEPCIONNATHANKE[facility] 03/12/2024 09:36:53 Date Recorded Body height Provider Name an d Address Organization Details Last Updated DateTime 05/25/2024 157.48 cm XOCHILT OCNCEPCIONNATHANKELLY [facility] 05/25/2024 10:59:47 Date Recorded Body height Body mass index (BMI) Body weight Provider Name and Address Organization Details Last Updated DateTime 08/13/2024 157.48 cm 21.6 kg/m2 00957.9 g CARITO GARCIA [facility] 08/13/2024 09:38:18 Date Recorded Body height Provider Name an d Address Organization Details Last Updated DateTime 11/04/2024 157.48 cm XOCHILT CNOCEPCIONNATHANKELLY [facility] 11/04/2024 10:31:31 Social History None recorded. Functional Status None recorded. Mental Status None recorded. Family History Nothing Reported. Medical History No medical history recorded. Gynecological HistoryNo gynecological history recorded. Obstetrics History GPAL:G 0 P 0 0 0 0 Past Encounters Encounter ID Performer Location Encounter Start Date Encounter Closed Date Diagnosis/Indication Diagnosis SNOMED-CT Code Diagnosis ICD10 Code Diagnosis Note [id number] GHISLAINE [place] [address] [place] [address] 03/12/2024 09:18:13 04/03/2024 13:53:10 Pain of bilateral knee joints 0193944515 45412 M25.561 M25.562 Osteoarthr itis of right knee joint 0596621316 33019 M17.11 Osteoarthr itis of left knee joint 8331789528 56649 M17.12 [id number] Michi Delgado PA-C [place] [address] [place] [address] 05/25/2024 10:58:41 06/12/2024 14:26:20 Osteoarthritis of right knee joint 7781518861 96833 M17.11 [id number] Michi Delgado PA-C [place] [address] [place] [address] 08/13/2024 09:28:59 09/04/2024 11:25:42 Osteoarthritis of left knee joint 9720106779 05149 M17.12 [id number] Michi Delgado PA-C [place] [address] [place] [address] 11/04/2024 10:29:23 11/24/2024 13:17:35 Osteoarthritis of right knee joint 1046264921 16558 M17.11 Osteoarthr itis of left knee joint 7371238950 55185 M17.12 Health Concerns Section Related Observation LastModified by Organization Detai ls LastModified Time None Recorded Concern Status LastModified by Organization Details LastModified Time None Recorded Advance Directives Directive None Recorded Payers Encounter Date Sequence Insurance Name Policy Number Policy Corona Covered Member ID Corona Member ID Guarantor Name 03/12/2024 2 [place] [id number] June Barger [id number] June Barger 03/12/2024 1 [place] [employer] [employer] [place] June Barger [id number] June Barger 05/25/2024 2 [place] [id number] June Barger [id number] 19 June Barger 05/25/2024 1 [place] [employer] [employer] [place] June Barger [id number] June Barger 08/13/2024 2 [place] [id number] June Barger [id number] 19 June Barger 08/13/2024 1 [place] [employer] [employer] June Barger [id number] 6 June Barger 11/04/2024 2 [place] [id number] June Barger [id number] 19 June Barger 11/04/2024 1 [place] [facility] [employer] June Barger [id number] 6 June Barger Notes Date Note Type [...] Alert and lucid. Normal insight, affect and grooming.FBI INVESTIGATOR: Gross motor coordination is intact. No spasticity [...] view of the right knee lateral compartment [id number] on the left. Advanced patellofemoral arthritis right [...] and further booked for total knee replacement. [employer] speech recognition manager domestic software was used to create portions of this document. An attempt at proofreading has been made to minimize errors. Please call for corrections. Michi Delgado PA-C [address] [facility] [address], [place], [address], [facility] - [facility] 03/13/2024 07:36:15 05/25/2024 text/html [...] follow up injection. Michi Delgado PA-C [address] [facility] [address], [place], [address], [place] - [facility] 06/08/2024 07:48:44 08/13/2024 text/html I am seeing [...] Delgado PA-C [address], [place], [address], [facility] - [facility] 08/13/2024 12:32:05 11/04/2024 text/html [...] Alert and lucid. Normal insight, affect and grooming.FBI INVESTIGATOR: Gross motor coordination is intact. No spasticity [...] limits. X-rays ordered, [facility] and [facility], 4 views of the Knees bilaterally including a standing AP, Vera view, nonweightbearing lateral views, and merchant view. These radiographs demonstrate Endstage medial compartment arthritis on Vera view of the right knee lateral compartment [id number]-hl-ukpt on the left. Advanced patellofemoral arthritis right [...] and further booked for total knee replacement. [facility] speech recognition manager domestic software was used to create portions of this document. An attempt at proofreading has been made to minimize errors. Please call for corrections. Michi Delgado PA-C [address] [facility] [address], [place], [address], [place] [facility] 11/17/2024 14:12:46 OBGyn Episode No OBEpisode recorded.
--- OUTSIDE RECORDS SUMMARY | 2024-12-12 10:27 | XMS_ITS | Encounter Summary ---
Author Organization [employer] Address [address] [place] [address] [address] [place] [address] Care Team Providers Care Home Health Nurse Licensed Practical Name Role Phone Sarah Roe MD Primary Care Provider [phone] Reason for Visit * Reason Onset Date Comments Results 04/19/2023 Encounter Details Date Type Department Care Team ([facility] st Contact Info) Description 04/19/2023 Telephone [facility] [address] [place] [address] Sarah Roe MD [address] [place] [address] Results Social History Tobacco Use Types Packs/Day Years Used Date Smoking Tobacco: Never Smokeless Tobacco: Never Alcohol Use Standard Drinks/Week Comments Never 0 (1 standard drink = 0.6 oz pur e alcohol) Comments Unknown Sex and Gender Information Value Date Recorded Sex Assigned at Female 09/17/2022 10:28 AM EDT Legal Sex Female 10:28 AM EDT Gender Identity Female 09/17/2022 10:28 AM EDT Sexual Orientation Straight 09/17/2022 10 :28 AM EDT COVID-19 Exposure Response Date Recorded In the last 10 days, have yo u been in contact with someone who was confirmed or suspected to have Coronavirus/COVID-19? No / Unsure 04/18/2023 11:30 AM EDT documented as of this encounter Miscellaneous Notes * Telephone Encounter - Saran Dennis RN - 04/25/2023 10:45 AM EDT Call to pt and pt informed of x-ray results and referral to Orthopedics for further eval. Pt verbalizes understanding and agrees. Reports taking tylenol for pain with mild relief. No redness or swelling noted. Per pt, already follows [facility] for shoulder pain, etc. Would like to be referred to [facility] for eval of the bunion. Pt also states she was referred to podiatry. Has not been contacted with an appt. Requesting status. Advised will send to referral's team to f/u with pt. Pt agrees. * Telephone Encounter - Sarah Roe MD - 04/24/2023 10:40 AM EDT Referral Done * Telephone Encounter - Saran Dennis RN - 04/23/2023 11:34 AM EDT RN informed by PAR that pt called in requesting results. Pt completed x-ray at [facility]. Retrieved report from [facility] dated 04/18/23. Will forward to provider to review and will call pt with results once available. Pt informed. Impression: Findings are consistent with a minimal bunion and hallux valgus deformity. No fracture or dislocation is identified. Report sent to scan. * Telephone Encounter - Remington Negro - 04/22/2023 4:30 PM EDT Pt calling regarding xray results. * Telephone Encounter - Tyrell Trent - 04/19/2023 4:17 PM EDT Tc from pt requesting X-ray results done on 04/18/2023 regarding left Foot . Please contact pt at [phone] documented in this encounter Plan of Treatment Not on file documented as of this encounter Visit Diagnoses Not on filedocumented in this encounter Care Teams Home Health Nurse Licensed Practical Relationship Specialty Start Date End Date Sarah Roe MD [address] [place] [id number] PCP - General Family Medicine 09/19/15 documented as of this encounter
--- OUTSIDE RECORDS SUMMARY | 2024-12-12 10:27 | XMS_ITS | Encounter Summary ---
Author Organization [facility] Address [address] [place] [address] Care Team Providers Care Delivery Professional Name Role Phone Sarah Roe Primary Care Provider Unavailabl e Reason for Visit * Reason Onset Date Comments TEST RESULTS 03/07/2021 Encounter Details Date Type Department Care Team Description 03/07/2021 Telephone Pulmonology - [place] [address] [facility] [address] [place] [address] John Paul Freeman MD [address] [place] [address] TEST RESULTS Social History Tobacco Use Types Packs/Day Years Used Date Smoking Tobacco: Never Assessed Sex Assigned at Date Recorded Not on file COVID-19 Exposure Response Date Recorded In the last month, have you been in contact with someone who was confirmed or suspected to have Coronavirus / COVID-19? No / Unsure 02/28/2021 10:00 AM EDT documented as of this encounter Miscellaneous Notes * Telephone Encounter - Lorena Abbott - 03/07/2021 11:13 AM EDT Inform patient: ANY URGENT OR ABNORMAL RESULTS WIILL RESULT IN A CALL BACK TO THE PATIENT CAMPOS. Type of test: : ctScan Date test was performed: 02/28 Where was the test performed: [facility] Who ordered this test?: Dr Freeman Is the doctor here today?: YES Can the message wait until the doctor returns?: YES IF PATIENT'S PCP IS NOT IN INSTRUCT PATIENT THAT THEY WILL RECEIVE A CALL BACK WHEN THE PCP IS IN THE OFFICE NEXT. documented in this encounter Plan of Treatment Not on file documented as of this encounter Visit Diagnoses Not on filedocumented in this encounter Care Teams Delivery Professional Relationship Specialty Start Date End Date Sarah Roe PCP - General Family Practice 02/01/20 documented as of this encounter
--- OUTSIDE RECORDS SUMMARY | 2024-12-12 10:27 | XMS_ITS | Clinical Summary ---
Author Organization [facility] Address [address] [facility] [place] [address] Phone Care Team Providers Care Space Engineer Name Role Phone Sarah Roe MD Primary Care Provider [phone] Allergies Active Allergy Reactions Criticality Noted Date Comments Azithromycin Other (see comments) 03/13/2021 Erythromycin Rash Low 04/11/2014 Erythromycin Base Rash Low 02/19/2006 Other reaction(s): Unknown Iodinated Contrast Media Other (see comments) 03/13/2021 Other reaction(s): rash/hives Iodine Rash Low 04/11/2014 Other reaction(s): Unknown Hives Medications alpha tocopherol (VITAMIN E) 400 units capsule Take 1 capsule by mouth 1 (one) time each day Active Vitamin A 2400 MCG (8000 UT) capsule Take 3 capsules by mouth 1 (one) time each day Active vedolizumab (Entyvio) 300 MG injection as directed Activ e Teduglutide, rDNA, (Gattex) 5 MG kit Active PARoxetine (PAXIL) 40 MG tablet Take 1 tablet by mouth 1 (one) time each day Active loperamide (IMODIUM A-D) 2 MG tablet Take 2 tablets by mouth 4 (four) times a day Active folic acid (FOLVITE) 1 MG tablet Take 1 tablet by mouth 1 (one) time each day Active ferrous sulfate 325 (65 Fe) MG EC tablet Take 1 tablet by mouth in the morning and 1 tablet at noon and 1 tablet in the evening. Take with meals. Active beta carotene 39172 units capsule Take 1 capsule by mouth 1 (one) time each day Active metoprolol tartrate 25 MG tablet Take 25 mg by mouth every morning 07/12/2021 Active Multiple Vitamins-Minera ls (Cerovite Senior) tablet TAKE ONE TABLET EVERY EVENING 08/17/2021 Active omeprazole (PriLOSEC) [address] capsule prn 07/12/2021 Activ e Zinc 50 MG tablet Take 1 tablet by mouth 1 (one) time each day Active Cyanocobalamin (B-12 COMPLIANCE INJECTION IJ) Inject as directed every 30 (thirty) days Taken for 43 weeks now monthly Active COPPER PO Take 25 mcg by mouth in the morning and 25 mcg at noon and 25 mcg in the evening. Take with meals. Active magnesium oxide 400 (240 Mg) MG tablet Take 1 tablet by mouth 1 (one) time each day 90 tablet 3 01/27/2024 01/27/20 25 Active Cholecalciferol (Vitamin D3) 125 MCG (5000 UT) capsule TAKE ONE CAPSULE EVERY MORNING 90 capsule 3 05/20/2024 Active Calcium Citrate 250 MG tablet Take 3 tablets by mouth in the morning and 3 tablets at noon and 3 tablets in the evening. Take with meals. 810 tablet 3 06/10/2024 06/10/20 25 Active furosemide (LASIX) 20 MG tablet Take 1 tablet (20 mg total) by mouth 1 (one) time each day 90 tablet 3 06/10/2024 06/10/20 25 Active ergocalciferol 1.25 MG (34604 UT) capsule TAKE ONE CAPSULE THREE TIMES PER WEEK (saturday, saturday, saturday) EVERY MORNING 36 capsule 3 07/09/2024 Active Active Problems Problem Noted Date Diagnosed Date Calculus of kidney and ureter 03/16/2021 Vitamin D deficiency, not otherwise specified Secondary hyperparathyroidism 03/16/2021 Metabolic acidosis 03/16/2021 Hypomagnesemia 03/16/2021 Hyperoxaluria 03/16/2021 Personal history of other malignant neoplasm of colon 03/16/2021 Anemia of chronic renal failure 03/13/2021 Stage 3b chronic kidney disease 03/13/2021 Crohn's disease 03/13/2021 Essential hypertension 03/13/2021 Short bowel syndrome 08/05/2015 10/22/2023 Iron deficiency anemia 05/29/2014 Overview (03/13/2021): Last Assessment & Plan: Her iron studies today and recent ferritin go against iron deficiency. She did not get rise in Hgb after iron dextran infusion. I suspect other cause for the anemia. She does have some elevation of creatinine. She also is on azathioprine which could contribute to anemia. She does not appear to have significant chronic inflammation based on CRP and ESR and normal iron and tibc so it is hard to ascribe anemia to chronic inflammation. Await MMA to rule out continued B12 deficiency. Could get EPO level on next visit to see if the slight renal insufficiency could be part of the anemia. Resolved Problems Problem Noted Date Diagnosed Date Resolved Date Disorder of kidney and/or ureter 03/13/2021 03/16/2021 Encounters Date Type Department Care Team Description 10/23/2024 Orders Only [facility] [address] [facility] [address] [place] [address] Dave Gillespie MD Stage 3b chronic kidney disease (HCC); Short bowel syndrome, not otherwise specified; Secondary hyperparathyroidism (HCC); Personal history of other malignant neoplasm of colon; Chronic metabolic acidosis; Hypomagnesemia; Hyperoxaluria; Essential hypertension; Crohn's disease of both small and large intestine with complication, not otherwise specified (HCC) 10/22/2024 10:20 AM EST Office Visit [facility] [address] [phone] Dave Gillespie MD Stage 3b chronic kidney disease (HCC) (Primary Dx); Short bowel syndrome, not otherwise specified; Hyperoxaluria; Hypomagnesemia; Chronic metabolic acidosis; Secondary hyperparathyroidism (HCC); Calculus of kidney and ureter 10/21/2024 Orders Only [facility] [address] [phone] Dave Gillespie MD from Last 3 Months Immunizations Name Administration Dates Next Due H1N1 All Forms 10/10/2009 Hep A, Unspecified 03/08/2014,08/03/2013 Hep B, Unspecified 03/08/2014,09/08/2013, 013 Influenza Split High Dose Pr eservative Free IM 08/18/2019,08/05/2018 Influenza, Unspecified 09/10/2017,2015,08/18/2014,09/17,10/26/2010,08/18/2009 Pneumococcal Conjugate 13-Valent 08/08/2016,07/19,09/28/2014 Pneumococcal Polysaccharide 07/09/2013 Td, Unspecified 07/17/2012,11/18/2001 Zoster 12/19/2016 Family History Medical History Relation Comments Heart disease Father Hypertension Father Hypertension Mother Relation Status Comments Father Mother Social History Tobacco Use Types Packs/Day Years Used Date Smoking Tobacco: Never Smokeless Tobacco: Never Tobacco Cessation:Counseling Given: Not Answered Alcohol Use Standard Drinks/Week Comments No 0 (1 standard drink = 0.6 oz pur e alcohol) Comments Unknown Sex and Gender Information Value Date Recorded Sex Assigned at Not on file Legal Sex Female 4:47 PM EST Gender Identity Not on file Sexual Orientation Not on file Last Filed Vital Signs Vital Sign Reading Time Taken Comments Blood Pressure 120/70 10/22/2024 11:36 AM EST Pulse 68 10/22/2024 11:36 AM EST Temperature - - Respiratory Rate - - Oxygen Saturation 96% 10/23/2023 9:54 AM EST Inhaled Oxygen Concentration - - Weight 52.2 kg (115 lb) 10/22/2024 11:36 AM EST Height 154.9 cm (5' 1 ) 10/23/2023 9:54 AM EST Body Mass Index 21.73 10/23/2023 9:54 AM EST Plan of Treatment Upcoming Encounters Date Type Department Care Team (Late st Contact Info) Description 04/22/2025 10:00 AM EDT Office Visit [facility] [address] [phone] Dave Gillespie MD [address] [phone] Health Maintenance Due Date Last Done Comments Breast Cancer Screening 1950 Colorectal Cancer Screening: Annual FOBT 02/14/2000 Colorectal Cancer Screening: Colonoscopy 02/14/2000 Colorectal Cancer Screening: Sigmoidoscopy 02/14/2000 Influenza Vaccine (#1) 2024 3, 08/08/2022, 09/01/2019, Additional history exists Hepatitis B Vaccine Aged Out 03/08/2014, 03/08/2014, 09/08/2013, Additional history exists No longer eligible based on patient's age to complete this topic Pneumococcal Vaccine: 65+ Years Completed 09/01/2019, 08/08/2016, 07/30/2016, Additional history exists Procedures Procedure Name Priority Date/Time Associated Diagnosis Comments PROTEIN / CREATININE RATIO, URINE Routine 10/21/2024 12:20 PM EST PTH, INTACT Routine 10/21/2024 11:18 AM EST FERRITIN Routine 10/21/2024 11:18 AM EST ZINC Routine 10/21/2024 11:18 AM EST COPPER, SERUM Routine 10/21/2024 11:18 AM EST MAGNESIUM Routine 10/21/2024 11:18 AM EST PHOSPHATE ( PHOSPHORUS) Routine 10/21/2024 11:18 AM EST URIC ACID Routine 10/21/2024 11:18 AM EST VITAMIN D 25 HYDROXY Routine 10/21/2024 11:18 AM EST B12/FOLATE Routine 10/21/2024 11:18 AM EST IRON PANEL (FE, TIBC, TSAT) Routine 10/21/2024 11:18 AM EST COMPREHENSIVE METABOLIC PANEL Routine 10/21/2024 11:18 AM EST CBC AND DIFFERENTIAL Routine 10/21/2024 11:18 AM EST from Last 3 Months Results * (ABNORMAL) Protein, Total, Random Urine w/Creatinine (Protein/Creat Ratio) (10/21/2024 12:20 PM EST) Creatinine, Ur 33.9 Not Estab. mg/dL [facility] Protein, Ur <4.0 Not Estab. mg/dL [facility] Comment:Verified by repeat analysis Urine Protein/Creatinin e Ratio Comment(A ) 0 - 200 mg/g creat [facility] Comment: This result is below the assay's limit of quantitation indicating a dilute specimen, potentially due to diurnal variation. ??Consider recollection at a time likely to provide a more concentrated urine. 10/21/2024 12:2 0 PM EST 10/21/2024 us Dave Gillespie MD LAB URINE ORDERABLES Final Re sult Performing Organization Address [facility] Co de Phone Number [facility] [address] [place] [address] * Vitamin B12/Folate (10/21/2024 11:18 AM EST) Pathologist [facility] Vitamin B-12 822 232 - 1,245 pg/mL [facility] Folate >20.0 >3.0 ng/mL [facility] Comment: A serum folate concentration of less than 3.1 ng/mL is considered to represent clinical deficiency. 10/21/2024 11:1 8 AM EST 10/21/2024 us Dave Gillespie MD LAB BLOOD ORDERABLES Final Re sult Performing Organization Address City/[facility]/ZIP Co de Phone Number [facility] [address] [place] [address] * (ABNORMAL) Iron Panel (Fe, TIBC, TSAT) (10/21/2024 11:18 AM EST) Pathologist [facility] TIBC 249(L) 250 - 450 ug/dL [facility] UIBC 195 118 - 369 ug/dL [facility] Iron 54 27 - 139 ug/dL [facility] Iron Saturation (TSat) 22 15 - 55 % [facility] 10/21/2024 11:1 8 AM EST 10/21/2024 Dave Gillespie MD LAB BLOOD ORDERABLES Final Re sult Performing Organization Address City/[facility]/ZIP Co de Phone Number [facility] [address] [place] [address] * (ABNORMAL) Copper, serum (10/21/2024 11:18 AM EST) Copper 70(L) 80 - 158 ug/dL [facility] Comment:Detection Limit = 5 10/21/2024 11:1 8 AM EST 10/21/2024 Narrative [facility] - 10/23/2024 1:06 PM EST Test(s) [id number], Serum or Plasma was developed and its performance characteristics determined by [employer]. It has not been cleared or approved by the Food and Drug Administration. Dave Gillespie MD LAB BLOOD ORDERABLES Final Re sult Performing Organization Address [facility] Co de Phone Number [facility] [address] [place] [phone] * Zinc (10/21/2024 11:18 AM EST) Zinc 74 44 - 115 ug/dL [facility] Comment:Detection Limit = 5 10/21/2024 11:1 8 AM EST 10/21/2024 Narrative [facility] - 10/23/2024 1:06 PM EST Test(s) [id number], Plasma or Serum was developed and its performance characteristics determined by [employer]. It has not been cleared or approved by the Food and Drug Administration. Dave Gillespie MD LAB BLOOD ORDERABLES Final Re sult Performing Organization Address City/[facility]/ZIP Co de Phone Number [facility] [address] [place] [address] * Vitamin D 25 Hydroxy (10/21/2024 11:18 AM EST) Vitamin D, 25-OH, Total 45.3 30.0 - 100.0 ng/mL [facility] Comment: Vitamin D deficiency has been defined by the [place] of [employer] and an Endocrine Society practice guideline as a level of serum 25-OH vitamin D less than 20 ng/mL (1,2). The Endocrine Society went on to further define vitamin D insufficiency as a level between 21 and 29 ng/mL (2). 1. IOM ([place] of Medicine). 2010. Dietary reference ?? intakes for calcium and D. Yuan [place]: The ?? National [employer]. 2. Charmaine MF, Severino LERMA, Holger PALOMO, et al. ?? Evaluation, treatment, and prevention of vitamin D ?? deficiency: an Endocrine Society clinical practice ?? guideline. JCEM. 2010; 96(7):1911-30. 10/21/2024 11:1 8 AM EST 10/21/2024 Dave Gillespie MD LAB BLOOD ORDERABLES Final Re sult Performing Organization Address City/[facility]/ZIP Co de Phone Number [facility] [address] [place] [address] * (ABNORMAL) CBC and Differential (10/21/2024 11:18 AM EST) WBC 6.3 3.4 - 10.8 x10E3/uL [facility] RBC 4.06 3.77 - 5.28 x10E6/uL [facility] Hemoglobin 12.8 11.1 - 15.9 g/dL [facility] Hematocrit 39.7 34.0 - 46.6 % [facility] MCV 98(H) 79 - 97 fL [facility] MCH 31.5 26.6 - 33.0 pg [facility] MCHC 32.2 31.5 - 35.7 g/dL [facility] RDW 11.7 11.7 - 15.4 % [facility] Platelets 191 150 - 450 x10E3/uL [facility] Neutrophils Relative 71 Not Estab. % [facility] Lymphocytes Relative 16 Not Estab. % [facility] Monocytes 9 Not Estab. % [facility] Eosinophils Relative 3 Not Estab. % [facility] Basophils Relative 1 Not Estab. % [facility] Neutrophils Absolute 4.5 1.4 - 7.0 x10E3/uL [facility] Lymphocytes Absolute 1.0 0.7 - 3.1 x10E3/uL [facility] Monocytes Absolute 0.5 0.1 - 0.9 x10E3/uL [facility] Eosinophils Absolute 0.2 0.0 - 0.4 x10E3/uL [facility] Basophils Absolute 0.1 0.0 - 0.2 x10E3/uL [facility] Immature Granulocytes 0 Not Estab. % [facility] Immature Grans (Absolute) 0.0 0.0 - 0.1 x10E3/uL [facility] 10/21/2024 11:1 8 AM EST 10/21/2024 us Dave Gillespie MD LAB BLOOD ORDERABLES Final Re sult Performing Organization Address [facility] Co de Phone Number [facility] [place] [address] [place] [address] * (ABNORMAL) Uric Acid (10/21/2024 11:18 AM EST) Uric Acid 8.3(H) 3.1 - 7.9 mg/dL [facility] Comment:Therapeutic target f or gout patients: <6.0 10/21/2024 11:1 8 AM EST 10/21/2024 us Dave Gillespie MD LAB BLOOD ORDERABLES Final Re sult Performing Organization Address [facility] de Phone Number [facility] [address] [place] [address] * Phosphorus (10/21/2024 11:18 AM EST) Phosphorus 3.9 3.0 - 4.3 mg/dL [facility] 10/21/2024 11:1 8 AM EST 10/21/2024 us Dave Gillespie MD LAB BLOOD ORDERABLES Final Re sult Performing Organization Address [facility] Co de Phone Number [facility] [place] [address] [place] [address] * (ABNORMAL) PTH, Intact (10/21/2024 11:18 AM EST) PTH 92(H) 15 - 65 pg/mL [facility] 10/21/2024 11:1 8 AM EST 10/21/2024 us Dave Gillespie MD LAB BLOOD ORDERABLES Final Re sult Performing Organization Address City/[facility]/ZIP Co de Phone Number [facility] [address] [place] [address] * Magnesium (10/21/2024 11:18 AM EST) Pathologist [facility] Magnesium 1.8 1.6 - 2.3 mg/dL [facility] 10/21/2024 11:1 8 AM EST 10/21/2024 us Dave Gillespie MD LAB BLOOD ORDERABLES Final Re sult Performing Organization Address [facility] Co de Phone Number [facility] [place] [address] [place] [address] * Ferritin (10/21/2024 11:18 AM EST) Pathologist [facility] Ferritin 55 15 - 150 ng/mL [facility] 10/21/2024 11:1 8 AM EST 10/21/2024 us Dave Gillespie MD LAB BLOOD ORDERABLES Final Re sult Performing Organization Address [facility] de Phone Number [facility] [address] [place] [address] * (ABNORMAL) Comprehensive Metabolic Panel (10/21/2024 11:18 AM EST) Glucose 95 70 - 99 mg/dL [facility] BUN 14 8 - 27 mg/dL [facility] Creatinine 1.61(H) 0.57 - 1.00 mg/dL [facility] eGFR CKD-EPI CR 2020 34(L) >59 mL/min/1.7 3 [facility] BUN/Creatinine Ratio 9(L) 12 - 28 [facility] Sodium 142 134 - 144 mmol/L [facility] Potassium 4.6 3.5 - 5.2 mmol/L [facility] Chloride 105 96 - 106 mmol/L [facility] Bicarbonate (CO2) 21 20 - 29 mmol/L [facility] Calcium 9.0 8.7 - 10.3 mg/dL [facility] Total Protein 6.0 6.0 - 8.5 g/dL [facility] Albumin 3.8 3.8 - 4.8 g/dL [facility] Globulin 2.2 1.5 - 4.5 g/dL [facility] Total Bilirubin 0.2 0.0 - 1.2 mg/dL [facility] Alkaline Phosphatase 72 44 - 121 IU/L [facility] AST (SGOT) 32 0 - 40 IU/L [facility] ALT (SGPT) 31 0 - 32 IU/L [facility] 10/21/2024 11:1 8 AM EST 10/21/2024 Dave Gillespie MD LAB BLOOD ORDERABLES Final Re sult [facility] [address] [place] [address] from Last 3 Months Insurance [facility] MEDIC[facility] Care Teams Space Engineer Relationship Specialty Start Date End Date Sarah Roe MD [address] [place] [phone] PCP - General 11/28/20
--- OUTSIDE RECORDS SUMMARY | 2024-12-12 10:27 | XMS_ITS | Encounter Summary ---
Author Organization [employer] Address [address] [place] [address] 7 [place] [address] Care Team Providers Care Real Estate Paralegal Name Role Phone Sarah Roe MD Primary Care Provider [phone] Reason for Visit * Reason Onset Date Comments triage 01/30/2023 Encounter Details Date Type Department Care Team ([facility] st Contact Info) Description 01/30/2023 Telephone [facility] [address] [place] [address] Sarah Roe MD [address] [place] [address] triage Social History Tobacco Use Types Packs/Day Years Used Date Smoking Tobacco: Never Smokeless Tobacco: Never Comments Unknown Sex and Gender Information Value Date Recorded Sex Assigned at Female 09/17/2022 10:28 AM EDT Legal Sex Female 10:28 AM EDT Gender Identity Female 09/17/2022 10:28 AM EDT Sexual Orientation Straight 09/17/2022 10 :28 AM EDT documented as of this encounter Miscellaneous Notes * Telephone Encounter - Marnie Rivera RN - 01/30/2023 2:34 PM EDT Triage call Pt reports for a month now right thigh, inner aspect has an area where there is a stabbing pain that comes and goes. Pt reports there is no significant activity of lack of that causes it.It just comes and goes. Pt reports ankle to calf edema bilateral legs is present as well and not dec reasing. Pt denies redness, swelling , no noted outward sign of any problem. Pt requests to be seenby PCP. apt with Dr. Roe 02/05 @ 1130. Pt agrees with disposition and home care reviewed. Protocol Used: Leg Pain (Adult) Protocol-Based Disposition: See in Office or Video Visit within 2 Weeks Video visit not offered Positive Triage Question: * Mild pain (e.g., does not interfere with normal activities) and present > 7 days * All higher-acuity triage questions were negative Care Advice Discussed: * Reassurance and Education - Leg Pain * Pain Medicines * Pain Medicines - Extra Notes and Warnings * Reasons To Call Back - Moderate pain (e.g., limping) lasts more than 3 days - Mild pain lasts more than 7 days - Signs of infection occur (e.g., spreading redness, warmth, fever) - You become worse * Use a Cold Pack for Pain * Use Heat on Area After 48 Hours * Rest * Telephone Encounter - Renetta Neville - 01/30/2023 11:27 AM EDT Symptom: Leg Pain - Not From Injury Outcome: Schedule an appointment to be seen within 24 hours Reason: No high acuity concerns reported by caller The caller accepted this outcome documented in this encounter Plan of Treatment Not on file documented as of this encounter Visit Diagnoses Not on filedocumented in this encounter Care Teams Real Estate Paralegal Relationship Specialty Start Date End Date Sarah Roe MD [address] [place] [id number] PCP - General Family Medicine 09/19/15 documented as of this encounter
--- OUTSIDE RECORDS SUMMARY | 2024-12-12 10:27 | XMS_ITS | Encounter Summary ---
Author Organization [employer] Address [address] [place] [address] Care Team Providers Care Composition Molder Name Role Phone Sarah Roe MD Primary Care Provider [phone] Encounter Details Date Type Department Care Team (Late st Contact Info) Description 10/15/2022 Abstract [facility] [address] [place] [address] Dental, Provider, DDS Social History Tobacco Use [...] suspected to have Coronavirus/COVID-19? No / Unsure 10/18/2022 9:15 AM EST documented as of this encounter Plan of Treatment Not on file documented as of this encounter Procedures Procedure Name Priority Date/Time Associated Diagnosis Comments 18,19,20,21,28,29,30,31 PARTIAL DENTURE - RESIN Routine 10/15/2022 12:00 AM EST 2,7,9,11,13,14,15 PARTIAL DENTURE - RESIN Routine 10/15/2022 12:00 AM EST 27 CROWN - PORCELAIN/CERAMIC Routine 10/15/2022 12:00 AM EST 22 CROWN - PORCELAIN/CERAMIC Routine 10/15/2022 12:00 AM EST 12 CROWN - PORCELAIN/CERAMIC Routine 10/15/2022 12:00 AM EST 10 CROWN - PORCELAIN/CERAMIC Routine 10/15/2022 12:00 AM EST 8 CROWN - PORCELAIN/CERAMIC Routine 10/15/2022 12:00 AM EST 5 CROWN - PORCELAIN/CERAMIC Routine 10/15/2022 12:00 AM EST 4 CROWN - PORCELAIN/CERAMIC Routine 10/15/2022 12:00 AM EST 23 MID COMPOSITE FILLING Routine 10/15/2022 12:00 AM EST 24 I COMPOSITE FILLING Routine 10/15/2022 12:00 AM EST 24 D COMPOSITE FILLING Routine 10/15/2022 12:00 AM EST 24 M COMPOSITE FILLING Routine 10/15/2022 12:00 AM EST 26 MID COMPOSITE FILLING Routine 10/15/2022 12:00 AM EST 12 ROOT CANAL Routine 10/15/2022 12:00 AM EST 10 ROOT CANAL Routine 10/15/2022 12:00 AM EST 6 ROOT CANAL Routine 10/15/2022 12:00 AM EST documented in this encounter Visit Diagnoses Not on filedocumented in this encounter Care Teams Composition Molder Relationship Specialty Start Date End Date Sarah Roe MD [address] [place] [id number] PCP - General Family Medicine 09/19/15 documented as of this encounter
--- OUTSIDE RECORDS SUMMARY | 2024-12-12 10:27 | XMS_ITS | Encounter Summary ---
Author Organization [employer] Address [address] [place] [address] 7 [place] [address] Care Team Providers Care Fruit Sorter Name Role Phone Sarah Roe MD Primary Care Provider [phone] Encounter Details Date Type Department Care Team (Latest Contact Info) Description 03/30/2019 Abstract [facility] Dental, Provider, DDS Social [...] on filedocumented in this encounter Care Teams Fruit Sorter Relationship Specialty Start Date End Date Sarah Roe MD [address] [place] [phone] PCP - General Family Medicine 09/19/15 documented as of this encounter
--- OUTSIDE RECORDS SUMMARY | 2024-12-12 10:27 | XMS_ITS | Encounter Summary ---
Author Organization [employer] Address [address] [facility] [address] [place] [address] Care Team Providers Care Grommet Man Name Role Phone Sarah Roe MD Primary Care Provider [phone] Encounter Details Date Type Department Care Team (Late st Contact Info) Description 11/19/2024 Orders Only [facility] [address] [place], [place] [id number] ProviderRojelio MD Social History Tobacco Use Types Packs/Day Years [...] documented as of this encounter Care Teams Grommet Man Relationship Specialty Start Date End Date Sarah Roe MD [address] [place] [phone] PCP - General Family Medicine 09/19/15 documented as of this encounter
--- OUTSIDE RECORDS SUMMARY | 2024-12-12 10:27 | XMS_ITS | Clinical Summary ---
Author Organization [address] Address [address] [place] [phone] Phone Care Team Providers Care Upper Doubler Name Role Phone Sarah Roe MD Primary Care Provider [phone] Allergies Active Allergy Reactions Criticality Noted Date Comments Erythromycin 09/24/2024 Iodinated Contrast Media 09/24/2024 IV DYE Medications Hospital, Clinic, or Other Facility Administered Medication Ordered Dose Route Frequency Start Date End Date Status cyanocobalamin (VITAMIN B-12) injection 1,000 mcgIndications:B12 deficiency 1000 mcg subQ Once 10/22/2024 Active cyanocobalamin (VITAMIN B-12) injection 1,000 mcgIndications:B12 deficiency 1000 mcg subQ Once 12/07/2024 Active Encounters Date Type Department Care Team Description 09/24/2024 10:30 AM EST Office Visit Gastroenterology - [address] [place] [phone] Calos Byrne PA B12 deficiency (Primary Dx) from Last 3 Months Social History Tobacco Use Types Packs/Day Years Used Date Smoking Tobacco: Never Assessed Sex and Gender Information Value Date Recorded Sex Assigned at Not on file Gender Identity Not on file Sexual Orientation Not on file Job Start Date Occupation Industry Not on file Not on file Not on file Last Filed Vital Signs Vital Sign Reading Time Taken Comments Blood Pressure - - Pulse - - Temperature - - Respiratory Rate - - Oxygen Saturation - - Inhaled Oxygen Concentration - - Weight 51.7 kg (114 lb) 09/24/2024 11:07 AM EST Height 160 cm (5' 3 ) 09/24/2024 11:07 AM EST Body Mass Index 20.19 09/24/2024 11:07 AM EST Plan of Treatment Upcoming Encounters Date Type Department Care Team (Late st Contact Info) Description 01/07/2025 10:00 AM EST Clinical Support Gastroenterology - [address] [place] [address] 02/04/2025 10:00 AM EDT Clinical Support Gastroenterology - [address] [place] [address] 03/08/2025 10:00 AM EDT Clinical Support Gastroenterology - [address] [place] [address] Health Maintenance Due Date Last Done Comments IPV Vaccines (2 of 3 - Adult catch-up series) 04/05/2014 03/08/2014 Breast Cancer Screening 08/05/2020 08/05/2018 Colorectal Cancer Screening: Colonoscopy 10/18/2022 Falls Risk Assessment 10/18/2022 Medicare Annual Wellness Visit 10/18/2022 Osteoporosis Screening (Bone Density Screening) 10/18/2022 Social Influencers of Health Screening 10/18/2022 Depression Screening 11/19/2025 11/19/2024 Hypertension/CHF/CAD Annual BMP Blood Test 11/19/2025 11/19/2024, 10/21/2024, 10/21/2024, Additional history exists Cholesterol Screening (Lipid Panel) 11/19/2029 11/19/2024, 09/08/2018 DTaP,Tdap,and Td Vaccines (6 - Td or Tdap) 08/21/2031 08/21/2021, 02/07/2018, 03/08/2014, Additional history exists Hepatitis A Vaccines Aged Out 03/08/2014, 08/03/20 13 No longer eligible based on patient's age to complete this topic Hepatitis B Vaccines Completed 03/08/2014, 03/08/2014, 09/08/2013, Additional history exists Hepatitis C Screening Completed 02/28/2017 Zoster Vaccines Completed 03/13/2019, 11/19, 03/19/2017, Additional history exists Pneumococcal Vaccine: 65+ Years Completed 09/01/2019, 08/08/2016, 07/30/2016, Additional history exists RSV Immunization Patients 60+ Years Old Completed 04/21/2024 Influenza Vaccine Completed 08/15/2024, , 08/08/2022, Additional history exists COVID-19 Vaccine Completed 08/22/2024, , 09/18/2022, Additional history exists HIB Vaccines Aged Out No longer eligi ble based on patient's age to complete this topic HPV Vaccines Aged Out No longer eligi ble based on patient's age to complete this topic MMR Vaccines Aged Out No longer eligi ble based on patient's age to complete this topic Meningococcal ACWY Vaccine Aged Out N o longer eligible based on patient's age to complete this topic RSV Immunization Patients Under 20 months Aged Out No longer eligible based on patient's age to complete this topic Varicella Vaccines Aged Out No longer eligible based on patient's age to complete this topic Care Teams Upper Doubler Relationship Specialty Start Date End Date Sarah Roe MD [address] [place] [address] PCP - General Family Medicine 09/24/24
[2024-12-12 10:41] LABS: MANUAL DIFF FLAG NO
[2024-12-12 11:24] LABS: Basophils Absolute Auto 0.1 X10*3/uL (0.0-0.2); Basophils Percent Auto 0.7 % (0-2); Eosinophils Absolute Auto 0.2 X10*3/uL (0.0-0.4); Eosinophils Percent Auto 2.3 % (0-4); Hematocrit 38.9 % (37.0-47.0); Hemoglobin 12.9 g/dl (12.0-16.0); Imm Gran Abs Auto 0.03 X10*3/uL (0.00-0.03); Imm Gran Pct Auto 0.3 % (0.0-0.4); Lymphocytes Absolute Auto 1.5 X10*3/uL (1.2-4.9); Lymphocytes Percent Auto 16.5 % (20-40); Mean Corpuscular HGB Conc 33.2 g/dl (31.0-35.0); Mean Corpuscular Hemoglobin 32.1 pg (27.0-33.0); Mean Corpuscular Volume 96.8 fL (80.0-98.0); Mean Platelet Volume 10.6 fL (9.4-12.3); Monocytes Absolute Auto 0.8 X10*3/uL (0.1-1.2); Monocytes Percent Auto 9.3 % (2-11); Neutrophils Absolute Auto 6.2 x10*3/uL (2.0-8.3); Neutrophils Percent Auto 70.9 % (45-73); Platelet Count 191 X10*3/uL (160-400); Red Blood Count 4.02 X10*6/uL (4.20-5.50); Red Cell Distribution Width 12.5 % (11.0-16.0); White Blood Count 8.8 X10*3/uL (4.8-10.8)
[2024-12-12 12:00] LABS: Uric Acid 8.2 mg/dL (2.4-5.7)
== END 2024-12-12 10:24 | disposition home or self-care (01) ==
LOC: HO.LAB 10:23
PROVIDERS: PCP Student in an Organized Health Care Education/Training Program; Visit Provider Family Medicine
DX: M79.672 Pain in left foot (principal)
CPT/HCPCS: 36415; 73630; 84550; 85025; 86140

== ENCOUNTER → 2024-12-12 10:52 | Outpatient (BNV) | payer MEDICARE, SELFPAY | PROVIDERS: PCP Student in an Organized Health Care Education/Training Program; Visit Provider Radiology Diagnostic Radiology | DX: M61.472 Other calcification of muscle, left ankle and foot (principal) | CPT/HCPCS: 73630 ==

== ENCOUNTER 2025-03-19 17:58 | Outpatient (REF) | payer MEDICARE, SELFPAY ==
--- OUTSIDE RECORDS SUMMARY | 2025-03-19 18:00 | XMS_ITS | Encounter Summary ---
Author Organization [employer] Address [address] [place] [address] [address] [place] [address] Care Team Providers Care Base Ply Hand Name Role Phone Sarah Roe MD Primary Care Provider [phone] Reason for Visit * Reason Onset Date Comments Results 04/19/2023 Encounter Details Date Type Department Care Team ([facility] st Contact Info) Description 04/19/2023 Telephone [facility] CHC MED & PEDS [address] [place] [address] Sarah Roe MD [address] [place] [address] Results Social History Tobacco Use Types Packs/Day [...] in requesting results. Pt completed x-ray at [facility]. Retrieved report from [facility] dated 04/18/23. Will forward to provider to [...] left Foot . Please contact pt at [phone] documented in this encounter Plan of Treatment Upcoming Encounters Date Type Department Care Team (Elin Contact Info) Description 04/07/2025 8:45 AM EDT Office Visit [facility] CHC MED & PEDS [address] [place] [address] Sarah Roe MD [address] [place] [address] documented as of this encounter Visit Diagnoses Not on filedocumented in this encounter Care Teams Base Ply Hand Relationship Specialty Start Date End Date Sarah Roe MD [address] [place] [address] PCP - General Family Medicine 09/19/15 documented as of this encounter
--- OUTSIDE RECORDS SUMMARY | 2025-03-19 18:00 | XMS_ITS | Encounter Summary ---
Author Organization [employer] Address [address] [place] [address] [address] [place] [address] Care Team Providers Care Patternmaker Plastics Name Role Phone Sarah Roe MD Primary Care Provider [phone] Encounter Details Date Type Department Care Team (Latest Contact Info) Description 03/30/[address] [facility] CONVERSIONS Dental, Provider, DDS Social History Tobacco Use Types Packs/Day Years Used Date Smoking Tobacco: Never Assessed Comments Unknown Sex and Gender Information Value Date Recorded Sex Assigned at Female 09/17/2022 10:28 AM EDT Legal Sex Female 10:28 AM EDT Gender Identity Female 09/17/2022 10:28 AM EDT Sexual Orientation Straight 09/17/2022 10 :28 AM EDT documented as of this encounter Plan of Treatment Upcoming Encounters Date Type Department Care Team (Late st Contact Info) Description 04/07/2025 8:45 AM EDT Office Visit [facility] CHC MED & PEDS [address] [place] [address] Sarah Roe MD [address] [place] [address] documented as of this encounter Visit Diagnoses Not on filedocumented in this encounter Care Teams Patternmaker Plastics Relationship Specialty Start Date End Date Sarah Roe MD [address] [place] [address] PCP - General Family Medicine 09/19/15 documented as of this encounter
--- OUTSIDE RECORDS SUMMARY | 2025-03-19 18:00 | XMS_ITS | Clinical Summary ---
Author Organization [facility] Address [address] [facility] [address] [place] [address] Phone Care Team Providers Care Linen Room Attendant Name Role Phone Sarah Roe MD Primary Care Provider [phone] Allergies Active Allergy Reactions Criticality Noted Date [...] evening. Take with meals. Active beta carotene 67289 units capsule Take 1 capsule by mouth [...] in the evening. Take with meals. Active Cholecalciferol (Vitamin D3) 125 MCG (5000 [...] 06/10/2024 06/10/20 25 Active ergocalciferol 1.25 MG (25997 UT) capsule TAKE ONE CAPSULE THREE TIMES PER WEEK (saturday, saturday, saturday) EVERY MORNING 36 capsule 3 07/09/2024 Active magnesium oxide 400 (240 Mg) MG tablet TAKE ONE TABLET EVERY MORNING 90 tablet 3 12/30/2024 Active Active Problems Problem Noted Date Diagnosed [...] Encounters Date Type Department Care Team Description 12/30/2024 Refill [facility] [address] [place] [address] Dave Gillespie MD from Last 3 Months Immunizations Immunization Administration Dates Next Due H1N1 All Forms [...] Care Team (Late st Contact Info) Description 04/28/2025 10:20 AM EDT Office Visit [facility] [address] [phone] Dave Gillespie MD [address] [phone] Health Maintenance Due Date Last Done Comments Breast Cancer Screening 1950 Colorectal Cancer Screening: Annual FOBT 02/14/2000 Colorectal Cancer Screening: Colonoscopy 02/14/2000 Colorectal Cancer Screening: Sigmoidoscopy 02/14/2000 Influenza Vaccine (Season Ended) 2025 08/08/2023, 08/08/2022, 09/01/2019, Additional history exists Hepatitis B Vaccine Aged Out 03/08/2014, 03/08/2014, 09/08/2013, Additional history exists No longer eligible based on patient's age to complete this topic Pneumococcal Vaccine: 50+ Years Completed 09/01/2019, 08/08/2016, 07/30/2016, Additional history exists Pneumococcal Vaccine: Peds (0 to 5 Years) and At-Risk Patients (6 to 49 Years) Discontinued 09/01/2019, 08/08/2016, 07/30/2016, Additional history exists Insurance [facility] Medicare [facility] Medicare Care Teams Linen Room Attendant Relationship Specialty Start Date End Date Sarah Roe MD [address] [place] [address] PCP - General Family Medicine 12/17/24
--- OUTSIDE RECORDS SUMMARY | 2025-03-19 18:00 | XMS_ITS | Data Portability ---
Author Organization [place] [facility] Address [address] [address] Assessment No assessment recorded. Plan of Treatment [...] Organization Details Recorded Time Candidal otitis externa 41748839 Active 2014 Candidal otitis externa; Note: Date Diagnosed : 08/23/2015 12:31 PM (B37.84) resolved Not Available [facility] 4 02:19:45 Ulcerativ e rhinitis 00562000 Active 2018 Nasal mucositis (ulcerati ve); Note: Date Diagnosed : 10/23/2019 5:33 PM (J34.81) Nasal mucositis (ulcerati ve); Note: Date Diagnosed : 08/23/2015 12:33 PM (J34.81) [mapped from ICD9 code: 389.18] ; Start Date : 5 Not Available [facility] 4 02:19:41 Sensorine ural hearing loss of bilateral ears 220097775 Active 2014 Sensorine ural hearing loss bilateral ly; Note: Date Diagnosed : 08/23/2015 11:58 AM (389.18) Sensori neural hearing loss, bilateral ; Note: Date Diagnosed : 08/23/2015 11:35 AM (H90.3) Not Available [facility] 4 02:19:34 Disorder of pharynx 25688424 Active 2014 Vestibuli tis Nasal; Note: Date Diagnosed : 08/23/2015 12:31 PM (478.20) Not Available [facility] 4 02:19:32 Otitis externa of bilateral ears 34308143016 47570 Active 2014 Other otitis externa, bilateral ; Note: Date Diagnosed : 5 6:53 AM (H60.8X3) Not Available [facility] 4 02:19:48 Problem Notes None recorded. Medical Equipment None Reported. Allergies Allergen ID Allergen Name Allergen Category Reaction Reaction Severity Criticality Documentation Date Start Date Code Code System Note Provider Name and Address Organization Details Recorded Time 43256 Iodinated contrast media (substanc e) medicatio n other Not available Not available 03/31/2024 64984 2003 SNOMED React ion: unkno wn, unspe cifie d;; Not Available [facility] 4 00:51:34 79168 erythromy jennifer ethylsucc inate medicatio n other Not available Not available 03/31/2024 4056 RxNorm React ion: unkno wn, unspe cifie d;; Not Available [facility] 4 00:51:34 Medications Name Sig Start Date Stop Date Status Note LastModified by Organization Details LastModified Time loperamid e 2 mg capsule 2018 active Medicati on ID: [id number] D uration Value: 30 Brand Name: loperami de Send Method: E-Prescr ibed Sub s Allowed: subs OK Speci al Instruct ion: TAKE TWO CAPSULES FOUR TIMES DAILY Me dication GenericN peggy: loperami de Not Available Not Available Not Available Lotrisone 1 %-0.05 % topical cream 11/09 completed Medicati on ID: [id number] Pr escribed By Name: Cristiano Enriquez nd Name: Lotrison e Send Method: E-Prescr ibed Sub s Allowed: subs OK Speci al Instruct ion: apply to external ear tid X 2 weeks Me dication GenericN peggy: Lotrison e Not Available Not Available Not Available alendrona te 70 mg tablet 2018 active Medicati on ID: [id number] D uration Value: 28 Brand Name: alendron [...] mg tablet 2014 [place] Medicati [place] ID: [id number] Du ration Value: 30 Brand Name: diphenox ylate-at ropine S end Method: E-Prescr ibed Sub s Allowed: subs OK Medic ationGen ericName : diphenox ylate-at ropine Not Available Not Available Not Available Remicade 100 mg intraveno us solution 2014 active Medicati on ID: [id number] Br and Name: Remicade Send Method: E-Prescr ibed Sub s Allowed: subs OK Medic ationGen ericName : Remicade Not Available Not Available Not Available azathiopr ine 50 mg tablet 2014 active Medicati on ID: [id number] Du ration Value: 30 Brand Name: azathiop rine Sen d Method: E-Prescr ibed Sub s Allowed: subs OK Medic ationGen ericName : azathiop rine Not Available Not Available Not Available amlodipin e 5 mg tablet 2018 active Medicati on ID: [id number] D uration Value: 90 Brand Name: amlodipi ne Send Method: E-Prescr ibed Sub s Allowed: subs OK Speci al Instruct ion: TAKE ONE TABLET BY MOUTH EVERY DAY Medi cationGe nericNam e: amlodipi ne Not Available Not Available Not Available triamcino lone acetonide 0.1 % topical cream 1 a small amount to affected area 2015 active Medicati on ID: [id number] D uration Value: 14 Prescri bed By Name: Yaneth osuna MD Brand Name: triamcin olone acetonid e Send Method: E-Prescr ibed Sub s Allowed: subs OK Medic ationGen ericName : triamcin olone acetonid e Not Available Not Available Not Available potassium citrate ER 10 mEq (1,080 mg) tablet,ex tended release 2018 active Medicati on ID: [id number] D uration Value: 30 Brand Name: renetta campos citrate Send Method: E-Prescr ibed Sub s Allowed: subs OK Speci al Instruct ion: TAKE ONE TABLET THREE TIMES DAILY Me dication GenericN peggy: renetta campos citrate Not Available Not Available Not Available diphenhyd ramine 25 mg capsule 2018 active Medicati on ID: [id number] D uration Value: 30 Brand Name: diphenhy dramine HCl Send Method: E-Prescr ibed Sub s Allowed: subs OK Speci al Instruct ion: TAKE TWO CAPSULES 20 TO 30 minutes BEFORE bedtime NEEDED Lorie Garzatutuic Name: diphenhy dramine HCl Not Available Not Available Not Available ferrous sulfate 325 mg (65 mg iron) tablet 2018 active Medicati on ID: [id number] D uration Value: 30 Brand Name: ferrous sulfate Send Method: E-Prescr ibed Sub s Allowed: subs OK Speci al Instruct ion: TAKE ONE TABLET THREE TIMES DAILY Me dication GenericN peggy: ferrous sulfate Not Available Not Available Not Available Vitamin B-6 100 mg tablet 2018 active Medicati on ID: 459247 D uration Value: 30 Brand Name: Vitamin B-6 Send Method: E-Prescr ibed Sub s Allowed: subs OK Speci al Instruct ion: TAKE ONE TABLET DAILY Me dication GenericN peggy: Vitamin B-6 Not Available Not Available Not Available beta carotene 10,000 unit capsule 2014 active Medicati on ID: [id number] Br and Name: beta carotene Send Method: E-Prescr ibed Sub s Allowed: subs OK Medic ationGen ericName : beta carotene Not Available Not Available Not Available omeprazol e 20 mg capsule,d elayed release 2014 active Medicati on ID: [id number] Du ration Value: 30 Brand Name: omeprazo le Send Method: E-Prescr ibed Sub s Allowed: subs OK Medic ationGen ericName : omeprazo le Not Available Not Available Not Available folic acid 1 mg tablet 2014 [place] Medicati on ID: 72165 Du ration Value: 30 Brand Name: folic acid Sen d Method: E-Prescr ibed Sub s Allowed: subs OK Medic ationGen ericName : folic acid Not Available Not Available Not Available hydrochlo rothiazid e 25 mg tablet 2018 active Medicati on ID: [id number] D uration Value: 90 Brand Name: hydrochl orothiaz jonnie Send Method: E-Prescr ibed Sub s Allowed: subs OK Speci al Instruct ion: TAKE ONE TABLET BY MOUTH EVERY DAY Medi cationGe nericNam e: hydrochl orothiaz jonnie Not Available Not Available Not Available mupirocin 2 % topical ointment 2018 active Medicati on ID: [id number] D uration Value: 14 Brand Name: mupiroci n Send Method: E-Prescr ibed Sub s Allowed: subs OK Speci al Instruct ion: APPLY TO THE AFFECTED AREA(S) SPARINGL Y THREE TIMES DAILY Me dication GenericN peggy: mupiroci n Not Available Not Available Not Available triamcino lone acetonide 0.1 % lotion 1 a small amount to skin 2014 active Medicati on ID: [id number] D uration Value: 14 Prescri bed By Name: Yaneth osuna MD Brand Name: triamcin olone acetonid e Send Method: E-Prescr ibed Sub s Allowed: subs OK Medic ationGen ericName : triamcin olone acetonid e Not Available Not Available Not Available paroxetin e 40 mg tablet 2014 active Medicati on ID: 56451 Du ration Value: 30 Brand Name: paroxeti ne HCl Send Method: E-Prescr ibed Sub s Allowed: subs OK Medic ationGen ericName : paroxeti ne HCl Not Available Not Available Not Available ferrous sulfate 325 mg (65 mg iron) tablet,de layed release 2014 active Medicati on ID: [id number] Br and Name: ferrous sulfate Send Method: E-Prescr ibed Sub s Allowed: subs OK Medic ationGen ericName : ferrous sulfate Not Available Not Available Not Available Vitamin D2 1,250 mcg (50,000 unit) capsule 2018 active Medicati on ID: [id number] D uration Value: 28 Brand Name: Vitamin D2 Send Method: E-Prescr ibed Sub s Allowed: subs OK Speci al Instruct ion: TAKE ONE CAPSULE BY MOUTH THREE TIMES A WEEK Med icationG enericNa me: Vitamin D2 Not Available Not Available Not Available clindamyc in 1 % lotion 2018 active Medicati on ID: [id number] D uration Value: 14 Brand Name: goyo rodriguez phosphat e Send Method: E-Prescr ibed Sub s Allowed: subs OK Speci al Instruct ion: Apply to leg once daily. Lorie monteiro Rex Name: goyo rodriguez phosphat e Not Available Not Available Not Available valsartan 40 mg tablet 2014 active Medicati on ID: [id number] Du ration Value: 30 Brand Name: valsarta n Send Method: E-Prescr ibed Sub s Allowed: subs OK Medic ationGen ericName : valsarta n Not Available Not Available Not Available Vitamin D3 25 mcg (1,000 unit) tablet 2014 active Medicati on ID: 56731 Du ration Value: 30 Brand Name: Vitamin D3 Send Method: E-Prescr ibed Sub s Allowed: subs OK Medic ationGen ericName : Vitamin D3 Not Available Not Available Not Available metoprolo l tartrate 25 mg tablet 2018 active Medicati on ID: 150640 D uration Value: 30 Brand Name: metoprol ol tartrate Send Method: E-Prescr ibed Sub s Allowed: subs OK Speci al Instruct ion: TAKE ONE TABLET DAILY Me dication GenericN peggy: metoprol ol tartrate Not Available Not Available Not Available calcium 250 mg (as citrate) tablet 2018 active Medicati on ID: 951941 D uration Value: 27 Brand Name: calcium citrate Send Method: E-Prescr ibed Sub s Allowed: subs OK Speci al Instruct ion: TAKE THREE TABLETS BY MOUTH THREE TIMES DAILY Me dication GenericN peggy: calcium citrate Not Available Not Available Not Available calcium 600 mg (as carbonate )-vitamin D3 10 mcg (400 unit) tablet 2014 active Medicati on ID: [id number] Br and Name: calcium carbonat e-vitami n D3 Send Method: E-Prescr ibed Sub s Allowed: subs OK Medic ationGen ericName : calcium carbonat e-vitami n D3 Not Available Not Available Not Available cholecalc iferol (vitamin D3) 125 mcg/mL (5,000 unit/mL) oral drops 2018 active Medicati on ID: [id number] D uration Value: 118 Brand Name: cholecal [...] SNOMED-CT Code Diagnosis ICD10 Code Diagnosis Note [id number] JENNIFER DE LA PAZ [facility] of [address] [phone] 08/27/2024 09:38:53 08/31/2024 08:18:14 Sensorineural hearing loss of bilateral ears [id number] H90.3 Health Concerns Section Related Observation LastModified by Organization Detai ls LastModified Time None Recorded Concern Status LastModified by Organization Details LastModified Time None Recorded Advance Directives Directive None Recorded Payers Encounter Date Sequence Insurance Name Policy Number Policy Corona Covered Member ID Corona Member ID Guarantor Name 08/27/2024 2 [facility] June Barger [id number] June Barger 08/27/2024 1 MEDICARE [place]: [facility] June Barger [id number] 6 June Barger Notes Date Note Type [...] she continues to have issues. MORAIMA SEGURA, [facility] [address] [facility],[place] [address], [place], [address], [facility] - [facility] 08/27/2024 09:43:13 OBGyn Episode No OBEpisode recorded.
--- OUTSIDE RECORDS SUMMARY | 2025-03-19 18:00 | XMS_ITS | Encounter Summary ---
Author Organization [employer] Address [address] [place] [address] 7 [place] [address] Care Team Providers Care Log Buyer Name Role Phone Sarah Roe MD Primary Care Provider [phone] Reason for Visit * Reason Onset Date Comments triage 01/30/2023 Encounter Details Date Type Department Care Team ([facility] st Contact Info) Description 01/30/2023 Telephone [facility] MED & PEDS [address] [place], [place] [phone] Sarah Roe MD [address] [place] [address] triage Social History Tobacco Use Types Packs/Day [...] Description 04/07/2025 8:45 AM EDT Office Visit [facility] MED & PEDS [address] [place] [address] Sarah Roe MD [address] [place] [address] documented as of this encounter Visit Diagnoses Not on filedocumented in this encounter Care Teams Log Buyer Relationship Specialty Start Date End Date Sarah Roe MD [address] [place] [address] PCP - General Family Medicine 09/19/15 documented as of this encounter
--- OUTSIDE RECORDS SUMMARY | 2025-03-19 18:00 | XMS_ITS | Encounter Summary ---
Author Organization [employer] Address [address] [place] [address] 7 [place] [address] Care Team Providers Care Dean Of Education Name Role Phone Sarah Roe MD Primary Care Provider [phone] Reason for Visit * Reason Onset Date Comments Referral 03/19/2025 Encounter Details Date Type Department Care Team ([facility] st Contact Info) Description 03/19/2025 Telephone [facility] CHC MED & PEDS [address] [place] [address] Sarah Roe MD [address] [place] [address] Referral Social History Tobacco Use Types Packs/Day [...] encounter Miscellaneous Notes * Telephone Encounter - Kellie Solo RN - 03/19/2025 12:14 PM EDT TC to patient. She is requesting a referral for auto finance sales rep. She currently has what she believes to be a yeast infection, and is going to walk-in clinic today. She would like to establish care with a AD OPERATIONS COORDINATOR incase she gets another yeast infection in the future. Patient is hard of hearing, and has difficult with accents. She is also requesting a female provider. * Telephone Encounter - Leena Pascal - 03/19/2025 11:51 AM EDT Patient in requesting a referral on 's behalf for a female Devulcanizer Charger. Patient is having a female concern and is also requesting for Devulcanizer Charger to speak very well marshallese dur to pt has a hard time understanding the language. documented in this encounter Plan of Treatment Upcoming Encounters Date Type Department Care Team (Late st Contact Info) Description 04/07/2025 8:45 AM EDT Office Visit [facility] MED & PEDS [address] [place] [address] Sarah Roe MD [address] [place] [address] documented as of this encounter Visit Diagnoses Not on filedocumented in this encounter Additional Health Concerns Assessment Noted Time PHQ-9 Depression Total Score: 0 11/19/19 25 9:15 AM EST documented as of this encounter Care Teams Dean Of Education Relationship Specialty Start Date End Date Sarah Roe MD [address] [place] [address] PCP - General Family Medicine 09/19/15 documented as of this encounter
--- OUTSIDE RECORDS SUMMARY | 2025-03-19 18:00 | XMS_ITS | Encounter Summary ---
Author Organization [employer] Address [address] [facility] [address] [place] [address] Care Team Providers Care Salesperson Jewelry Name Role Phone Sarah Roe MD Primary Care Provider [phone] Encounter Details Date Type Department Care Team (Late st Contact Info) Description 11/19/2024 Orders Only [facility] CHC MED & PEDS [address] [place], [place] [phone] ProviderRojelio MD Social History Tobacco Use Types [...] Upcoming Encounters Date Type Department Care Team ([facility] st Contact Info) Description 04/07/2025 8:45 AM EDT Office Visit [facility] CHC MED & PEDS [address] [place] [address] Sarah Roe MD [address] [place] [address] documented as of this encounter Visit Diagnoses Not on filedocumented in this encounter Additional Health Concerns Assessment Noted Time PHQ-9 Depression Total Score: 0 11/19/19 25 9:15 AM EST documented as of this encounter Care Teams Salesperson Jewelry Relationship Specialty Start Date End Date Sarah Roe MD [address] [place] [id number] PCP - General Family Medicine 09/19/15 documented as of this encounter
--- OUTSIDE RECORDS SUMMARY | 2025-03-19 18:00 | XMS_ITS | Encounter Summary ---
Author Organization [employer] Address [address] [facility] 7t [place] [address] Care Team Providers Care Tag Maker Name Role Phone Sarah Roe MD Primary Care Provider [phone] Reason for Visit * Reason Comments Vaginal Discharge Encounter Details Date Type Department Care Team ([facility] Contact Info) Description 03/19/2025 1:40 PM EDT Office Visit [facility] WALK-IN [address] [address] Vulvovaginal candidiasis (Primary Dx) Social History Tobacco Use Types [...] Sign Reading Time Taken Comments Blood Pressure 146/96 03/19/2025 1:08 PM EDT Pulse 80 03/19/2025 1:08 PM EDT Temperature 37.5 ??C (99.5 ??F) 03/19/2025 1:08 PM ED T Respiratory Rate 16 03/19/2025 1:08 PM EDT Oxygen Saturation - - Inhaled Oxygen Concentration - - Weight 52.9 kg (116 lb 9.6 oz) 03/19/2025 1:08 P M EDT Height 154.9 cm (5' 1 ) 03/19/2025 1:08 PM EDT Body Mass Index 22.03 03/19/2025 1:08 PM EDT documented in this encounter Plan of Treatment Upcoming Encounters Date Type Department Care Team (Late st Contact Info) Description 04/07/2025 8:45 AM EDT Office Visit [facility] MED & PEDS [address] [place] [address] Sarah Roe MD [address] [place] [address] Scheduled Orders Name Type Priority Associated Diagnoses Orde r Schedule Bacterial Vaginosis Microbiology Routine Vulvovaginal candidiasis Ordered: 03/19/2025 documented as of this encounter Procedures Procedure Name Priority Date/Time Associated Diagnosis Comments POCT URINALYSIS DIPSTICK Routine 03/19/2025 1:41 PM EDT Vulvovaginal candidiasis documented in this encounter Results * POCT urinalysis dipstick manually resulted (03/19/2025 1:41 PM EDT) Color, UA Yellow Clarity, UA Clear Glucose, UA Negative Bilirubin, UA Negative Ketones, UA Negative Spec Grav, UA 1.025 Blood, UA Negative Negative, None Detected pH, UA 5.5 Protein, UA Negative Urobilinogen, UA 0.2 Leukocytes, UA Negative Negative, Rare, Trace Nitrite, UA Negative Negative, None Detected Urine 03/19/2025 1:41 PM EDT [facility] MARINE ELECTRONICS TECHNICIAN POINT OF CARE TEST ENTER/EDIT ORDERABLES Final Result documented in this encounter Visit Diagnoses Diagnosis Vulvovaginal candidiasis- Primary documented in this encounter Additional Health Concerns Assessment Noted Time PHQ-9 Depression Total Score: 0 11/19/19 25 9:15 AM EST documented as of this encounter Care Teams Tag Maker Relationship Specialty Start Date End Date Sarah Roe MD [address] [place] [address] PCP - General Family Medicine 09/19/15 documented as of this encounter
--- OUTSIDE RECORDS SUMMARY | 2025-03-19 18:00 | XMS_ITS | Encounter Summary ---
Author Organization [employer] [facility] Address [address] [place] [address] 7 [place] [address] Care Team Providers Care Customer Account Manager Name Role Phone Sarah Roe MD Primary Care Provider [phone] Encounter Details Date Type Department Care Team (Late Contact Info) Description 10/15/2022 Abstract [facility] ADULT DENTAL [address] [place], [place] [phone] Dental, Provider, DDS Social History Tobacco Use [...] Encounters Date Type Department Care Team (Late Contact Info) Description 04/07/2025 8:45 AM EDT Office Visit [facility] MED & PEDS [address] [place], [place] [phone] Sarah Roe MD [address] [place] [address] documented as of this encounter Procedures Procedure [...] on filedocumented in this encounter Care Teams Customer Account Manager Relationship Specialty Start Date End Date Sarah Roe MD [address] [place] [address] PCP - General Family Medicine 09/19/15 documented as of this encounter
--- OUTSIDE RECORDS SUMMARY | 2025-03-19 18:00 | XMS_ITS | Encounter Summary ---
Author Organization [employer] Address [address] [facility] 7t [place] [address] Care Team Providers Care Group Product Manager Name Role Phone Sarah Roe MD Primary Care Provider [phone] Encounter Details Date Type Department Care Team (Late st Contact Info) Description 02/01/2025 Orders Only [facility] [address] [place] [address] Provider, MD Rojelio Social History Tobacco Use Types Packs/Day Years [...] Upcoming Encounters Date Type Department Care Team ([facility] st Contact Info) Description 04/07/2025 8:45 AM EDT Office Visit [facility] CHC MED & PEDS [address] [place], [place] [phone] Sarah Roe MD [address] [place], [place] [phone] documented as of this encounter Procedures Procedure Name Priority Date/Time Associated Diagnosis Comments LIPASE Routine 01/30/2025 9:32 AM EDT AMYLASE Routine 01/30/2025 9:32 AM EDT documented in this encounter Results * Amylase (01/30/2025 9:32 AM EDT) Blood Venous blood specimen / Unknown Historical Provider LAB BLOOD ORDERABLES Michell l Result * Lipase (01/30/2025 9:32 AM EDT) Blood Venous blood specimen / Unknown Historical Provider LAB BLOOD ORDERABLES Michell l Result documented in this encounter Visit Diagnoses Not on filedocumented in this encounter Additional Health Concerns Assessment Noted Time PHQ-9 Depression Total Score: 0 11/19/19 25 9:15 AM EST documented as of this encounter Care Teams Group Product Manager Relationship Specialty Start Date End Date Sarah Roe MD [address] [place] [phone] PCP - General Family Medicine 09/19/15 documented as of this encounter
--- OUTSIDE RECORDS SUMMARY | 2025-03-19 18:00 | XMS_ITS | Encounter Summary ---
Author Organization [employer] Address [address] [facility] 7t [place] [address] Care Team Providers Care Patternmaker Pressure Cast Name Role Phone Sarah Roe MD Primary Care Provider [phone] Reason for Visit * Reason Onset Date Comments Referral 09/25/2024 Encounter Details Date Type Department Care Team ([facility] st Contact Info) Description 09/25/2024 Telephone [facility] MEDICINE [address] [place] [address] Sarah Roe MD [address] [place] [address] Referral Social History Tobacco Use Types Packs/Day [...] TC from pt requesting a referral to Internal Grinding Machine Operator Dr Shields [address] [place] [address] (P) [phone] Dx: ingrown toe nails / plantar fasciitis PT states used to see a compensation consulting manager but had doctor recently , needs to be seen else where documented in this encounter Plan of Treatment Upcoming Encounters Date Type Department Care Team (Late st Contact Info) Description 04/07/2025 8:45 AM EDT Office Visit [facility] MED & PEDS [address] [place] [address] Sarah Roe MD [address] [place] [address] documented as of this encounter Visit Diagnoses Not on filedocumented in this encounter Care Teams Patternmaker Pressure Cast Relationship Specialty Start Date End Date Sarah Roe MD [address] [place] [phone] PCP - General Family Medicine 09/19/15 documented as of this encounter
--- OUTSIDE RECORDS SUMMARY | 2025-03-19 18:00 | XMS_ITS | Encounter Summary ---
Author Organization [facility] Address [address] [place] [address] Care Team Providers Care Videotape Recording Engineer Name Role Phone Sarah Roe MD Primary Care Provider [phone] Reason for Visit * Reason Onset Date Comments Advice Only 02/23/2025 Encounter Details Date Type Department Care Team (Late st Contact Info) Description 02/23/2025 Telephone Gastroenterology - [address] [place] [phone] Calos Byrne PA [address] Jose Miguel [address] [place] [address] Advice Only Social History Tobacco Use Types Packs/Day Years Used Date Smoking Tobacco: Never Assessed Comments Unknown Sex and Gender Information Value Date Recorded Sex Assigned at Not on file Legal Sex Female 5:11 AM EST Gender Identity Not on file Sexual Orientation Not on file documented as of this encounter Progress Notes * Johana Lyles MA - 03/15/2025 2:20 PM EDT SENDING RX TO [facility]. * Tricia Mcqueen - 03/15/2025 1:53 PM EDT Pt calling requesting to speak with Johana states she has important info, says to call back urgently * Johana Lyles MA - 03/15/2025 9:57 AM EDT Spoke with patient. Pa has been approved through [facility]. Pt will call to verify. * Tricia Mcqueen - 03/15/2025 9:48 AM EDT Pt calling stating that she got a letter from [facility] stating that the PA was denied for the [facility] because they were unable to contact the office pt would like a phone call to figure out why, please call * Johana Lyles MA - 02/24/2025 8:05 AM EDT Spoke with patient and working on her PA for the [employer]. * Nuzhat Barbosa - 02/23/2025 2:28 PM EDT Pt gets injections at [facility], needs the order to be sent. She says that 01 said to keep making the appointments until she can't do it anymore, but she needs our office to put in the order. Wants 01to put in the order, but booked a OV with ML so she could maybe take over. Pt is wondering what arethe next steps? Please advise. documented in this encounter Plan of Treatment Upcoming Encounters Date Type Department Care Team (Late st Contact Info) Description 04/08/2025 10:00 AM EDT Clinical Support Gastroenterology - [address] [facility] [address] [phone] 05/10/2025 10:00 AM EDT Clinical Support Gastroenterology - [address] [place] [address] documented as of this encounter Visit Diagnoses Not on filedocumented in this encounter Care Teams Videotape Recording Engineer Relationship Specialty Start Date End Date Sarah Roe MD [address] [place] [address] PCP - General Family Medicine 12/17/24 documented as of this encounter
--- OUTSIDE RECORDS SUMMARY | 2025-03-19 18:00 | XMS_ITS | Clinical Summary ---
Author Organization [facility] [address] [facility] Address [address] [place] [address] Phone Care Team Providers Care Biogeographer Name Role Phone Sarah Roe MD Primary Care Provider [phone] Allergies Active Allergy Reactions Criticality Noted Date Comments Erythromycin 09/24/2024 Iodinated Contrast Media 09/24/2024 IV DYE Medications vedolizumab (Entyvio) 300 mg recon solnIndications: Crohn's disease of colon with complication (CMS/HCC V24, CMS/HCC V28) Infuse 5 mL (300 mg total) into a venous catheter every 28 (twenty-eigh t) days. 5 mL 11 5 03/15/20 26 Active vedolizumab (Entyvio) 300 mg recon soln Infuse 5 mL (300 mg total) into a venous catheter every 28 (twenty-eigh t) days. 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); Crohn's disease of small intestine without complication ([facility] V24, [facility] V28); Vitamin B 12 deficiency 03/08/2025 10:00 AM EDT Clinical Support Gastroenterology - [address] [phone] B12 deficiency (Primary Dx) 02/23/2025 Telephone Gastroenterology - [address] [phone] Calos Byrne PA Advice Only 02/04/2025 10:00 AM EDT Office Visit Gastroenterology - [address] [phone] Antwan Muñoz MD B12 deficiency (Primary Dx) 01/07/2025 10:00 AM EST Office Visit Gastroenterology - [address] [place] [phone] Antwan Muñoz MD Vitamin B 12 deficiency (Primary Dx) from Last 3 Months Surgical History Surgery Date Site/Laterality Comments COLONOSCOPY 07/19/2024 - 08/17/2024 Patent and healthy appearing mucosa ileocolonic anastomosis. Unremarkable right colon biopsy. (1yr) Dr. Muñoz Social History Tobacco Use Types Packs/Day Years [...] on file Sexual Orientation Not on file Obstetrics History Last Filed Vital Signs Vital Sign Reading Time Taken Comments Blood Pressure - - Pulse - - Temperature - - Respiratory Rate - - Oxygen Saturation - - Inhaled Oxygen Concentration - - Weight 52.6 kg (116 lb) 03/19/2025 10:09 AM EDT Height 157.5 cm (5' 2 ) 03/19/2025 10:09 AM EDT Body Mass Index 21.22 03/19/2025 10:09 AM EDT Plan of Treatment Upcoming Encounters Date Type Department Care Team (Late st Contact Info) Description 04/08/2025 10:00 AM EDT Clinical Support Gastroenterology - [address] [place] [phone] 05/10/2025 10:00 AM EDT Clinical Support Gastroenterology - [address] [facility] [address] [place] [phone] Health Maintenance Due Date Last Done Comments IPV Vaccines (2 of 3 - Adult catch-up series) 04/05/2014 03/08/2014 Breast Cancer Screening 08/05/2020 08/05/2018 Colorectal Cancer Screening: Colonoscopy 10/18/2022 Falls Risk Assessment 10/18/2022 Medicare Annual Wellness Visit 10/18/2022 Osteoporosis Screening (Bone Density Screening) 10/18/2022 Social Influencers of Health Screening 10/18/2022 COVID-19 Vaccine (7 - Moderna risk season) 2025 08/22/2024, 09/13/2023, 09/18/2022, Additional history exists Depression Screening 11/19/2025 11/19/2024 Hypertension/CHF/CAD Annual BMP Blood Test 03/19/2026 03/19/2025, 11/19/2024, 10/21/2024, Additional history exists Cholesterol Screening (Lipid [...] 11/19, 03/19/2017, Additional history exists Pneumococcal Vaccine: 50+ Years Completed 09/01/2019, 08/08/2016, 07/30/2016, Additional history exists RSV Immunization Adult Patients Completed 04/21/2024 Influenza Vaccine Completed 08/15/2024, , 08/08/2022, Additional history exists HIB Vaccines Aged Out [...] patient's age to complete this topic Meningococcal B Vaccine Aged Out No l onger eligible based on patient's age to complete this topic RSV Immunization Patients Under 20 months Aged Out No longer eligible based on patient's age to complete this topic Varicella Vaccines Aged Out No longer eligible based on patient's age to complete this topic Procedures Procedure Name Priority Date/Time Associated Diagnosis Comments CBC WITH AUTO DIFFERENTIAL Routine 03/19/2025 2:49 PM EDT 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 Crohn's disease of small intestine without complication (CMS/HCC V24, CMS/HCC V28) Vitamin B 12 deficiency FERRITIN Routine 03/19/2025 2:49 PM EDT 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 Crohn's disease of small intestine without complication (CMS/HCC V24, CMS/HCC V28) Vitamin B 12 deficiency IRON AND TIBC Routine 03/19/2025 2:49 PM EDT 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 Crohn's disease of small intestine without complication (CMS/HCC V24, CMS/HCC V28) Vitamin B 12 deficiency VITAMIN B12 AND FOLATE Routine 03/19/2025 2:49 PM EDT 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 Crohn's disease of small intestine without complication (CMS/HCC V24, CMS/HCC V28) Vitamin B 12 deficiency COMPREHENSIVE METABOLIC PANEL Routine 03/19/2025 2:49 PM EDT 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 Crohn's disease of small intestine without complication (CMS/HCC V24, CMS/HCC V28) Vitamin B 12 deficiency CBC AND DIFFERENTIAL Routine 03/19/2025 2:49 PM EDT 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 Crohn's disease of small intestine without complication (CMS/HCC V24, CMS/HCC V28) Vitamin B 12 deficiency from Last 3 Months Results * (ABNORMAL) Vitamin B12 and folate (03/19/2025 2:49 PM EDT) Pathologist [facility] Vitamin B-12 824 250 - 900 pcg/mL LAB CHEMISTRY METHOD 03/19/2025 4:56 PM EDT [facility] Folate >20.0(H) 2.8 - 17.0 ng/ml LAB CHEMISTRY METHOD 03/19/2025 4:56 PM EDT [facility] Blood Venous blood specimen / Unknown Venipuncture / Unknown 03/19/2025 2:49 PM EDT 03/19/2025 3:40 PM EDT Calos MACEDO LAB BLOOD ORDERABLES Final R esult [facility] [address] [place] [address], [place] [phone] * (ABNORMAL) CBC auto differential (03/19/2025 2:49 PM EDT) [facility] WBC 7.8 4.8 - 10.8 K/mcL LAB HEMETOLOGY METHOD 03/19/2025 3:50 PM EDT [facility] RBC 4.00 3.80 - 4.80 M/mcL LAB HEMETOLOGY METHOD 03/19/2025 3:50 PM EDT [facility] Hemoglobin 12.5 11.5 - 16.0 g/dL LAB HEMETOLOGY METHOD 03/19/2025 3:50 PM EDT [facility] Hematocrit 39.1 35.0 - 47.0 % LAB HEMETOLOGY METHOD 03/19/2025 3:50 PM EDT [facility] MCV 98.2(H) 79.0 - 98.0 FL LAB HEMETOLOGY METHOD 03/19/2025 3:50 PM EDT [facility] MCH 31.4 27.0 - 32.0 pcg LAB HEMETOLOGY METHOD 03/19/2025 3:50 PM EDT [facility] MCHC 32.0 32.0 - 37.0 g/dL LAB HEMETOLOGY METHOD 03/19/2025 3:50 PM EDT [facility] RDW 13.1 11.0 - 15.0 % LAB HEMETOLOGY METHOD 03/19/2025 3:50 PM EDT [facility] Platelets 199 130 - 400 K/mcL LAB HEMETOLOGY METHOD 03/19/2025 3:50 PM EDT [facility] MPV 10.6 7.0 - 11.0 FL LAB HEMETOLOGY METHOD 03/19/2025 3:50 PM EDT [facility] NRBC 0.0 <1.0 % LAB HEMETOLOGY METHOD 03/19/2025 3:50 PM EDT [facility] NRBC Absolute 0.00 <0.10 K/mcL LAB HEMETOLOGY METHOD 03/19/2025 3:50 PM EDT [facility] Neutrophils Relative 64.7 % LAB HEMETOLOGY METHOD 03/19/2025 3:50 PM EDT [facility] Lymphocytes Relative 22.7 % LAB HEMETOLOGY METHOD 03/19/2025 3:50 PM EDT [facility] Monocytes Relative 9.5 % LAB HEMETOLOGY METHOD 03/19/2025 3:50 PM EDT [facility] Eosinophils Relative 1.9 % LAB HEMETOLOGY METHOD 03/19/2025 3:50 PM EDT [facility] Basophils Relative 0.8 % LAB HEMETOLOGY METHOD 03/19/2025 3:50 PM EDT [facility] Immature Granulocytes Relative 0.4 % LAB HEMETOLOGY METHOD 03/19/2025 3:50 PM EDT [facility] Neutrophils Absolute 5.02 1.50 - 7.00 K/mcL LAB HEMETOLOGY METHOD 03/19/2025 3:50 PM EDT [facility] Lymphocytes Absolute 1.76 1.00 - 5.00 K/mcL LAB HEMETOLOGY METHOD 03/19/2025 3:50 PM EDT [facility] Monocytes Absolute 0.74 0.20 - 1.00 K/mcL LAB HEMETOLOGY METHOD 03/19/2025 3:50 PM EDT [facility] Eosinophils Absolute 0.15 0.00 - 0.50 K/[facility] LAB HEMETOLOGY METHOD 03/19/2025 3:50 PM EDT [facility] Basophils Absolute 0.06 0.00 - 0.20 K/mcL LAB HEMETOLOGY METHOD 03/19/2025 3:50 PM EDT [facility] Immature Granulocytes Absolute 0.03 0.00 - 0.03 K/[facility] LAB HEMETOLOGY METHOD 03/19/2025 3:50 PM EDT [facility] Blood Venous blood specimen / Unknown Venipuncture / Unknown 03/19/2025 2:49 PM EDT 03/19/2025 3:40 PM EDT Calos MACEDO LAB BLOOD ORDERABLES Final R esult [facility] [address] [place] [address], * Iron and TIBC (03/19/2025 2:49 PM EDT) Iron 108 40 - 150 mcg/dL LAB CHEMISTRY METHOD 03/19/2025 4:56 PM EDT [facility] TIBC 268 250 - 450 mcg/dL LAB CHEMISTRY METHOD 03/19/2025 4:56 PM EDT [facility] Iron Saturation 40 15 - 50 % LAB CHEMISTRY METHOD 03/19/2025 4:56 PM EDT [facility] Blood Venous blood specimen / Unknown Venipuncture / Unknown 03/19/2025 2:49 PM EDT 03/19/2025 3:40 PM EDT Calos MACEDO LAB BLOOD ORDERABLES Final R esult Performing Organization Address City/[facility]/ZIP Co de Phone Number [facility] [address] [place] [address], [place] [phone] * Ferritin (03/19/2025 2:49 PM EDT) [facility] Ferritin 26 8 - 252 ng/mL LAB CHEMISTRY METHOD 03/19/2025 4:56 PM EDT [facility] Blood Venous blood specimen / Unknown Venipuncture / Unknown 03/19/2025 2:49 PM EDT 03/19/2025 3:40 PM EDT Calos MACEDO LAB BLOOD ORDERABLES Final R esult Performing Organization Address City/[facility]/ZIP Co de Phone Number [facility] [address] [place] [address], [place] [phone] * (ABNORMAL) Comprehensive metabolic panel (03/19/2025 2:49 PM EDT) [facility] Sodium 142 133 - 145 mmol/L LAB CHEMISTRY METHOD 03/19/2025 4:56 PM EDT [facility] Potassium 4.3 3.5 - 5.5 mmol/L LAB CHEMISTRY METHOD 03/19/2025 4:56 PM EDT [facility] Chloride 110 96 - 110 mmol/L LAB CHEMISTRY METHOD 03/19/2025 4:56 PM EDT [facility] CO2 26 21 - 32 mmol/L LAB CHEMISTRY METHOD 03/19/2025 4:56 PM [facility] Anion Gap 6 3 - 11 LAB CHEMISTRY METHOD 03/19/2025 4:56 PM [facility] Glucose 89 70 - 100 mg/dL LAB CHEMISTRY METHOD 03/19/2025 4:56 PM [facility] BUN 15 5 - 25 mg/dL LAB CHEMISTRY METHOD 03/19/2025 4:56 PM [facility] Creatinine 1.70(H) 0.50 - 1.10 mg/dL LAB CHEMISTRY METHOD 03/19/2025 4:56 PM [facility] eGFR 31(L) >=60 mL/min/1. 73m2 LAB CHEMISTRY METHOD 03/19/2025 4:56 PM [facility] Comment:Calculation based on the??Chronic Kidney Disease Epidemiology Collaboration (CKD-EPI) equation refit??without adjustment for race. BUN/Creatinine Ratio 8.8 LAB CHEMISTRY METHOD 03/19/2025 4:56 PM [facility] Calcium 8.3(L) 8.5 - 10.5 mg/dL LAB CHEMISTRY METHOD 03/19/2025 4:56 PM [facility] AST (SGOT) 31 10 - 42 unit/L LAB CHEMISTRY METHOD 03/19/2025 4:56 PM [facility] ALT (SGPT) 48 10 - 60 unit/L LAB CHEMISTRY METHOD 03/19/2025 4:56 PM [facility] Alkaline Phosphatase 78 42 - 121 unit/L LAB CHEMISTRY METHOD 03/19/2025 4:56 PM [facility] Total Protein 6.1 6.0 - 8.0 g/dL LAB CHEMISTRY METHOD 03/19/2025 4:56 PM [facility] Albumin 3.2 3.2 - 5.0 g/dL LAB CHEMISTRY METHOD 03/19/2025 4:56 PM [facility] Total Bilirubin 0.2 0.0 - 1.4 mg/dL LAB CHEMISTRY METHOD 03/19/2025 4:56 PM EDT [facility] Blood Venous blood specimen / Unknown Venipuncture / Unknown 03/19/2025 2:49 PM EDT 03/19/2025 3:40 PM EDT us Calos MACEDO LAB BLOOD ORDERABLES Final R esult [facility] ([facility]) [facility] [address] [place] [address], [place] [phone] from Last 3 Months Insurance MEDICARE [facility] Care Teams Biogeographer Relationship Specialty Start Date End Date Sarah oRe MD [address] [place] [address] PCP - General Family Medicine 12/17/24
--- OUTSIDE RECORDS SUMMARY | 2025-03-19 18:00 | XMS_ITS | Encounter Summary ---
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 Muñoz HPI: June Barger is a 75 y.o. old female who was originally referred to us by Sarah Roe MD now presents to the gastroenterology department today for a follow up of small bowel crohn's and short gutsyndrome.This is a routine 6-month appointment given that she has Entyvio fusions for her small bowel Crohn's. The Entyvio infusions are every 4 weeks. In general her diarrhea is stable. She finds Gattex to be life-changing. She only uses the Lomotil or loperamide as needed. She still has diarrhea daily although it is usually postprandial and anywhere from 4-5 times a day. Her weight is stable. She was diagnosed and treated for gout earlier this year. She has her monthly B12 injections and she t akes it orally as well. She also takes a copper and zinc supplement. She is due to have labs drawn to check these levels. She had no GI concerns today LABS/IMAGIN04/29/2024 Methylmalonic acid 3.92 Copper serum 858 Zinc serum 81 Review of Systems Constitutional: Negative. Respiratory: Negative. Cardiovascular: Negative. Gastrointestinal: Positive for diarrhea. Genitourinary: Negative. PROBLEM LIST: There is no problem list on file for this patient. PAST MEDICAL HISTORY: History reviewed. No pertinent past medical history. PAST SURGICAL HISTORY: Past Surgical History: Procedure Laterality Date COLONOSCOPY 07/2024 Patent and healthy appearing mucosa ileocolonic anastomosis. Unremarkable right colon biopsy. (1yr)Dr. Muñoz SOCIAL HISTORY: Social History Tobacco Use Smoking status: Never Smokeless tobacco: Never Substance Use Topics Alcohol use: Never FAMILY HISTORY: No family history on file. ACTIVE MEDICATIONS: Current Outpatient Medications Medication Sig Dispense Refill vedolizumab (Entyvio) 300 mg recon soln Infuse 5 mL (300 mg total) into a venous catheter every 28 (twenty-eight) days. 5 mL 11 Current Facility-Administered Medications Medication Dose Route Frequency Provider Last Rate Last Admin cyanocobalamin (VITAMIN B-12) injection 1,000 mcg 1,000 mcg subcutaneous Once Antwan Muñoz MD ALLERGIES: Allergies Allergen Reactions Erythromycin Iodinated Contrast Media IV DYE Wt Readings from Last 1 Encounters: 03/19/25 1009 52.6 kg (116 lb) Physical Exam Constitutional: Appearance: Normal appearance. HENT: Head: Normocephalic. Cardiovascular: Rate and Rhythm: Normal rate and regular rhythm. Pulmonary: Effort: Pulmonary effort is normal. Breath sounds: Normal breath sounds. Abdominal: General: Bowel sounds are normal. There is no distension. Palpations: Abdomen is soft. There is no mass. Tenderness: There is no abdominal tenderness. There is no guarding or rebound. Skin: General: Skin is warm. Neurological: Mental Status: She is alert and oriented to person, place, and time. Psychiatric: Mood and Affect: Mood normal. Behavior: Behavior normal. IMPRESSION: 1. 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 Crohn's disease of small intestine without complication (CMS/HCC V24, CMS/[facility] V28) 3. 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 Continue Gattex Orders: CBC and differential; Future Comprehensive metabolic panel; Future Vitamin B12 and folate; Future Copper, serum; Future Zinc; Future Iron and TIBC; Future Ferritin; Future Crohn's disease of small intestine without complication (CMS/HCC V24, CMS/[facility] V28) Continue Entyvio every 4 weeks In process of new Entyvio order Patient reaching out to [facility] today to make sure order is in place for next infusion which is due next week Orders: CBC and differential; Future Comprehensive metabolic panel; Future Vitamin B12 and folate; Future Copper, serum; Future Zinc; Future Iron and TIBC; Future Ferritin; Future Vitamin B 12 deficiency Continue monthly injections and daily p.o. supplement Orders: CBC and differential; Future Comprehensive metabolic panel; Future Vitamin B12 and folate; Future Copper, serum; Future Zinc; Future Iron and TIBC; Future Ferritin; Future 6 mths f/u HELLEN Sosa 5:37 PM EDT documented in this encounter Plan of Treatment Upcoming Encounters Date Type Department Care Team (Late st Contact Info) Description 04/08/2025 10:00 AM EDT Clinical Support Gastroenterology - [address] [facility] 299 [facility] [address] [place] [id number] 05/10/2025 10:00 AM EDT Clinical Support Gastroenterology - [address] [place] [phone] Pending Results Name Type Priority Associated Diagnoses Date /Time Copper, serum Lab Routine 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 V24, 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 V28) Vitamin B 12 deficiency 1 Occurrences starting 03/19/2025 until 03/19/2026 documented as of this encounter Results * Ferritin (03/19/2025 2:49 PM EDT) Ferritin 26 8 - 252 ng/mL LAB CHEMISTRY METHOD 03/19/2025 4:56 PM EDT [facility] Blood Venous blood specimen / Unknown Venipuncture / Unknown 03/19/2025 2:49 PM EDT 03/19/2025 3:40 PM EDT us Calos MACEDO LAB BLOOD ORDERABLES Final R esult [facility] [address] [place] [address], * Iron and TIBC (03/19/2025 2:49 PM EDT) Iron 108 40 - 150 mcg/dL LAB CHEMISTRY METHOD 03/19/2025 4:56 PM EDT [facility] TIBC 268 250 - 450 mcg/dL LAB CHEMISTRY METHOD 03/19/2025 4:56 PM EDT [facility] Iron Saturation 40 15 - 50 % LAB CHEMISTRY METHOD 03/19/2025 4:56 PM EDT [facility] Blood Venous blood specimen / Unknown Venipuncture / Unknown 03/19/2025 2:49 PM EDT 03/19/2025 3:40 PM EDT us Calos MACEDO LAB BLOOD ORDERABLES Final R esult Performing Organization Address City/[facility]/ZIP Co de Phone Number [facility] [address] [place] [address], [place] [phone] * (ABNORMAL) Vitamin B12 and folate (03/19/2025 2:49 PM EDT) Pathologist [facility] Vitamin B-12 824 250 - 900 pcg/mL LAB CHEMISTRY METHOD 03/19/2025 4:56 PM EDT [facility] Folate >20.0(H) 2.8 - 17.0 ng/ml LAB CHEMISTRY METHOD 03/19/2025 4:56 PM EDT [facility] Blood Venous blood specimen / Unknown Venipuncture / Unknown 03/19/2025 2:49 PM EDT 03/19/2025 3:40 PM EDT us Calos MACEDO LAB BLOOD ORDERABLES Final R esult [facility] [address] [place] [address], [place] [phone] * (ABNORMAL) Comprehensive metabolic panel (03/19/2025 2:49 PM EDT) Sodium 142 133 - 145 mmol/L LAB CHEMISTRY METHOD 03/19/2025 4:56 PM [facility] Potassium 4.3 3.5 - 5.5 mmol/L LAB CHEMISTRY METHOD 03/19/2025 4:56 PM [facility] Chloride 110 96 - 110 mmol/L LAB CHEMISTRY METHOD 03/19/2025 4:56 PM [facility] CO2 26 21 - 32 mmol/L LAB CHEMISTRY METHOD 03/19/2025 4:56 PM [facility] Anion Gap 6 3 - 11 LAB CHEMISTRY METHOD 03/19/2025 4:56 PM [facility] Glucose 89 70 - 100 mg/dL LAB CHEMISTRY METHOD 03/19/2025 4:56 PM [facility] BUN 15 5 - 25 mg/dL LAB CHEMISTRY METHOD 03/19/2025 4:56 PM [facility] Creatinine 1.70(H) 0.50 - 1.10 mg/dL LAB CHEMISTRY METHOD 03/19/2025 4:56 PM [facility] eGFR 31(L) >=60 mL/min/1. 73m2 LAB CHEMISTRY METHOD 03/19/2025 4:56 PM [facility] Comment:Calculation based on the??Chronic Kidney Disease Epidemiology Collaboration (CKD-EPI) equation refit??without adjustment for race. BUN/Creatinine Ratio 8.8 LAB CHEMISTRY METHOD 03/19/2025 4:56 PM [facility] Calcium 8.3(L) 8.5 - 10.5 mg/dL LAB CHEMISTRY METHOD 03/19/2025 4:56 PM [facility] AST (SGOT) 31 10 - 42 unit/L LAB CHEMISTRY METHOD 03/19/2025 4:56 PM [facility] ALT (SGPT) 48 10 - 60 unit/L LAB CHEMISTRY METHOD 03/19/2025 4:56 PM EDT [facility] Alkaline Phosphatase 78 42 - 121 unit/L LAB CHEMISTRY METHOD 03/19/2025 4:56 PM EDT [facility] Total Protein 6.1 6.0 - 8.0 g/dL LAB CHEMISTRY METHOD 03/19/2025 4:56 PM EDT [facility] Albumin 3.2 3.2 - 5.0 g/dL LAB CHEMISTRY METHOD 03/19/2025 4:56 PM EDT [facility] Total Bilirubin 0.2 0.0 - 1.4 mg/dL LAB CHEMISTRY METHOD 03/19/2025 4:56 PM EDT [facility] Blood Venous blood specimen / Unknown Venipuncture / Unknown 03/19/2025 2:49 PM EDT 03/19/2025 3:40 PM EDT us Calos MACEDO LAB BLOOD ORDERABLES Final R esult [facility] [address] [place] [address], documented in this encounter Visit Diagnoses Diagnosis 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
--- OUTSIDE RECORDS SUMMARY | 2025-03-19 18:00 | XMS_ITS | Encounter Summary ---
Author Organization [employer] Address [address] [place] [address] 7 [place] [address] Care Team Providers Care Emt/Dispatcher Name Role Phone Sarah Roe MD Primary Care Provider [phone] Encounter Details Date Type Department Care Team (Latest Contact Info) Description 09/06/2021 Abstract [facility] Dental, Provider, DDS Social History Tobacco [...] Description 04/07/2025 8:45 AM EDT Office Visit [facility] [address] [place] [address] Sarah Roe MD [address] [place] [address] documented as of this encounter Visit Diagnoses Not on filedocumented in this encounter Care Teams Emt/Dispatcher Relationship Specialty Start Date End Date Sarah Roe MD [address] [place] [address] PCP - General Family Medicine 09/19/15 documented as of this encounter
--- OUTSIDE RECORDS SUMMARY | 2025-03-19 18:00 | XMS_ITS | Encounter Summary ---
Author Organization [facility] [employer] Address [address] [facility] [address]t [place] [address] Care Team Providers Care Merchandise For Resale Purchasing Agent Name Role Phone Sarah Roe MD Primary Care Provider [phone] Encounter Details Date Type Department Care Team (Late st Contact Info) Description 12/16/2024 Telephone [facility] [address] [place] [address] Sarah Roe MD [address] [place] [address] Social History Tobacco Use Types Packs/Day Years [...] encounter Miscellaneous Notes * Telephone Encounter - Sarah Roe MD - 12/27/2024 6:15 PM EST Resent * Telephone Encounter - Karyn Arellano - 12/17/2024 2:[address] Roe, if you wish to send patient to the [facility] please combine both diagnosis into one rheumatology referral. Also please advise on which notes could be used to support referral to fax to office, you could revert your phone call with patient today into a progress note with more information regarding DX for referral so I can finish processing. Thank you. * Telephone Encounter - Sarah Roe MD - 12/17/2024 1:04 PM EST Spoke to pt for 45 mins.All questions were answereed.Referrals sent to [facility] [place] * Telephone Encounter - Mony Day RN - 12/17/2024 12:18 PM EST TC to pt- pt had many concerns- she was concerned about the coordination of her care and that she has so many specialists and [facility] not sending results to them. Pt was advised we have not received any information from either GI or nephro dr's. All we had were interfaced lab results from nephro. She was advised to sign the release for care everywhere for GI and ask nephro to send notes. She was alsosent link to sign up for mychart so se could see results as well as send messages d/t her c/o waiting on the phone to try and speak with a [facility] Staff member. This promotion writer will fax most recent labs to nephro at pt request. Pt also expressed concern at her recent diagnosis of gout, which is another form of arthritis which she already has in multiple areas. She is requesting a referral to [facility] so they can manage her arthritis of both knees, right thumb and now the gout. She receives cortisone injections at [facility] for her knees and PSS for her right thumb and feels one dr should be managing all of it. Pt was advised that the [facility] does as much as we can to help our pts and to p luciano continue to be an advocate for herself as it is very helpful. Pt agrees to keep current PCP stating she likes PCP very much but was very overwhelmed. Mauri send referral. * Telephone Encounter - Loree Orlando - 12/16/2024 2:04 PM EST Pt 1 of 2 Tc from pt requesting to speak to focused factory manager Mony. Pt would like to discuss health care concerns andpossibly switching providers for herself and daughter. Contact pt at [phone] documented in this encounter Plan of Treatment Upcoming Encounters Date Type Department Care Team (Late st Contact Info) Description 04/07/2025 8:45 AM EDT Office Visit [facility] [address] [place] [address] Sarah Roe MD [address] [place] [address] documented as of this encounter Visit Diagnoses Not on filedocumented in this encounter Additional Health Concerns Assessment Noted Time PHQ-9 Depression Total Score: 0 11/19/19 25 9:15 AM EST documented as of this encounter Care Teams Merchandise For Resale Purchasing Agent Relationship Specialty Start Date End Date Sarah Roe MD [address] [place] [address] PCP - General Family Medicine 09/19/15 documented as of this encounter
[2025-03-20 12:03] LABS: Bacterial Vaginosis PCR NEGATIVE (Negative); Candida Group PCR NOT DETECTED (Not Detect); Candida glab krusei PCR NOT DETECTED (Not Detect); Trichomonas vaginalis PCR NOT DETECTED (Not Detect)
== END 2025-03-19 17:59 | disposition home or self-care (01) ==
LOC: HO.HHCLNP 17:58
PROVIDERS: Visit Provider Registered Nurse
DX: B37.31 Acute candidiasis of vulva and vagina (principal)
CPT/HCPCS: 81515

== ENCOUNTER 2025-06-22 09:08 | Outpatient (REF) | payer MEDICARE, SELFPAY ==
--- NOTE | ~2025-06-22 | MM_ITS ---
EXAMINATION: DXA BONE DENSITY AXIAL HISTORY: TECHNIQUE: Solio Dual energy absorptiometry (DEXA) of the lumbar spine, total left hip, and femoral neck was performed. COMPARISON: Comparison is made with the prior examination dated 06/12/2023. FINDINGS: The bone mineral density of the lumbar spine is 0.988 g/cm2, corresponding to a T-score of -1.6, and a Z-score of 0.7. This is indicative of osteopenia. This represents a BMD change of 6.0% compared to the prior exam. This is statistically significant. The bone mineral density of the left total hip is 0.615 g/cm2, corresponding to a T-score of -3.1, and a Z-score of -1.1. This is indicative of osteoporosis. This represents a BMD change of -5.4% compared to the prior exam. This is statistically significant. The bone mineral density of the left femoral neck is 0.645 g/cm2, corresponding to a T-score of -2.8, and a Z-score of -0.6. This is indicative of osteoporosis. This represents a BMD change of 6.1% compared to the prior exam. FRACTURE RISK: The FRAX index suggests a ten year probability of major osteoporotic fracture of 25.8%, and of hip fracture 10.9%. MM/XR DEXA axial skeleton IMPRESSION: Based on bone mineral density, and according to World Health Organization (WHO) criteria, the diagnosis is consistent with osteoporosis. Statistically, 68% of repeat scans fall within 1 SD (+/- 0.010 g/cm2 for AP spine L1-L4) and 1 SD (+/- 0.012 g/cm2 for femur total) FRAX is a trademark of the [employer]'s [place] for Metabolic Bone Disease, a World Health Organization (WHO) Collaborating Center. Electronically signed by: Ciro Abreu MD 06/22/2025 09:48 AM EDT
--- OUTSIDE RECORDS SUMMARY | 2025-06-22 09:27 | XMS_ITS | Encounter Summary ---
Author Organization [facility] Address [address] [place] [address] Care Team Providers Care Oiler Helper Name Role Phone Sarah Roe Primary Care Provider Unavailabl e Reason for Visit * Reason Onset Date Comments TEST RESULTS 10/27/2020 Encounter Details Date Type Department Care Team Description 10/27/2020 Telephone Pulmonology - [place] [address] [facility] [address] [place] [address] John Paul Freeman MD [address] [place] [address] TEST RESULTS Social History Tobacco Use Types Packs/Day Years Used Date Smoking Tobacco: Never Assessed Sex Assigned at Date Recorded Not on file documented as of this encounter Miscellaneous Notes * Telephone Encounter - John Paul Freeman MD - 10/27/2020 6:35 PM EST D/w her. Small nodule stable- has history of colon cancer. Will get need ct chest in 12 mths * Telephone Encounter - Brittney Gordon - 10/27/2020 1:52 PM EST Inform patient: ANY URGENT OR ABNORMAL RESULTS WIILL RESULT IN A CALL BACK TO THE PATIENT CAMPOS. Type of test: :CT Scan Date test was performed: 10/07/2020 Where was the test performed: [facility] Who ordered this test?: Is the doctor here today?: YES Can the message wait until the doctor returns?: YES IF PATIENT'S PCP IS NOT IN INSTRUCT PATIENT THAT THEY WILL RECEIVE A CALL BACK WHEN THE PCP IS IN THE OFFICE NEXT. documented in this encounter Plan of Treatment Not on file documented as of this encounter Visit Diagnoses Not on filedocumented in this encounter Care Teams Oiler Helper Relationship Specialty Start Date End Date Sarah Roe PCP - General Family Practice 02/01/20 documented as of this encounter
--- OUTSIDE RECORDS SUMMARY | 2025-06-22 09:27 | XMS_ITS | Clinical Summary ---
Author Organization [facility] Address [address] [facility] [address] [place] [address] Phone Care Team Providers Care Grad Intern Name Role Phone Sarah Roe MD Primary Care Provider [phone] Allergies Active Allergy Reactions Criticality Noted Date [...] evening. Take with meals. Active beta carotene 28093 units capsule Take 1 capsule by mouth 1 (one) time each day Active metoprolol tartrate 25 MG tablet Take 25 mg by mouth every morning 1 Active Multiple Vitamins-Cold Strip Roller als (Cerovite Senior) tablet TAKE ONE TABLET EVERY EVENING 1 Active omeprazole (PriLOSEC) [address] capsule prn 1 Active Zinc 50 MG tablet Take 1 tablet by mouth 1 (one) time each day Active Cyanocobalamin (B-12 COMPLIANCE INJECTION IJ) Inject as directed every 30 (thirty) days Taken for 43 weeks now monthly Active COPPER PO Take 25 mcg by mouth in the morning and 25 mcg at noon and 25 mcg in the evening. Take with meals. Active furosemide (LASIX) 20 MG tablet Take 1 tablet (20 mg total) by mouth 1 (one) time each day 90 tablet 3 4 Active magnesium oxide 400 (240 Mg) MG tablet TAKE ONE TABLET EVERY MORNING 90 tablet 3 5 Active D-3-5 125 MCG (5000 UT) capsule TAKE ONE CAPSULE EVERY MORNING 90 capsule 3 5 Active ergocalciferol 1.25 MG (23926 UT) capsule TAKE ONE CAPSULE THREE TIMES PER WEEK (saturday, saturday, saturday) EVERY MORNING 36 capsule 3 5 Active Calcium Citrate 250 MG tablet Take 3 tablets by mouth in the morning and 3 tablets at noon and 3 tablets in the evening. Take with meals. 810 tablet 3 4 025 ergocalciferol 1.25 MG (50332 UT) capsule TAKE ONE CAPSULE THREE TIMES PER WEEK (saturday, saturday, saturday) EVERY MORNING 36 capsule 3 4 025 Discontinued Active Problems Problem Noted Date Diagnosed Date Cervical radiculopathy 04/20/2025 Calculus of kidney and ureter 03/16/2021 Vitamin D deficiency, not otherwise specified Secondary hyperparathyroidism 03/16/2021 Metabolic acidosis 03/16/2021 Hypomagnesemia 03/16/2021 Hyperoxaluria 03/16/2021 Personal history of other malignant neoplasm of colon 03/16/2021 Anemia of chronic renal failure 03/13/2021 Stage 3b chronic kidney disease 03/13/2021 Crohn's disease 03/13/2021 Essential hypertension 03/13/2021 Idiopathic osteoarthritis 11/02/2020 Overview (04/23/2025): Problem Code: M19.041; Problem Code Type: ICD-10; Status: 'A'; Short bowel syndrome 08/05/2015 10/22/2023 Iron deficiency [...] insufficiency could be part of the anemia. Malignant neoplasm of ascending colon 06/05/2013 Overview (04/23/2025): Mrs Barger has hx of T2N0 ascending colon cancer resected 06/23/13 in context of Crohn's and multiple bowel resections She is on remicaid since further bowel resection would leave her with short gut syndrome possibly. CT in May 13, 2014 showed no evident recurrence. stage I T2N0 colorectal ca s/p right colectomy 06/2013 here for follow up. Pt had a PETCT 10/2013 which showed FDG avid areas in the colon. A repeat colonoscopy was done 11/16/13 and biopsies were obtained which were all neg for malignancy. CEA in 09/2013 was 4.9. Nov 23, 2014 - CT shows no recurrence. Current plan is for repeat CT with premeds in October 2015 and check of labs including cbc, cmet, cea and iron levels in September 01 when she comes in for next infusion. She had CT June 2016 showing no evidence of recurrence. On September 12, 2016 she received first dose of vedolizumab for reactivation of Crohn's seen on colonoscopy in end of June 2016. CEA was noted to be [address] Cheng in [place]. Resolved Problems Problem Noted Date Diagnosed Date Resolved Date Cervical spondylosis 04/20/2025 025 Neck pain 04/13/2025 04/28/2025 Osteoarthritis of left knee joint 04/13/2025 04/28/2025 Pain of knee region 04/13/2025 04/28/20 Osteoarthritis of right knee joint 04/13/2025 04/28/2025 Hemorrhoid 12/16/2024 04/28/2025 Disorder of kidney and/or ureter 03/13/2021 03/16/2021 Ulcerative rhinitis 10/23/2019 04/28/20 25 Overview (04/23/2025): Nasal mucositis (ulcerative); Note: Date Diagnosed: 10/23/2019 5:33 PM (J34.81) Nasal mucositis (ulcerative); Note: Date Diagnosed: 08/23/2015 12:33 PM (J34.81) [mapped from ICD9 code: 389.18] ; Start Date : 08/23/2015 Otitis externa of bilateral ears 11/10/2015 04/28/2025 Overview (04/23/2025): Other otitis externa, bilateral; Note: Date Diagnosed: 11/10/2015 6:53 AM (H60.8X3) Candidal otitis externa 08/23/201504/18 Overview (04/23/2025): Candidal otitis externa; Note: Date Diagnosed: 08/23/2015 12:31 PM (B37.84) resolved Disorder of pharynx 08/23/2015 04/28/20 25 Overview (04/23/2025): Vestibulitis Nasal; Note: Date Diagnosed: 08/23/2015 12:31 PM (478.20) Sensorineural hearing loss of bilateral ears 04/28/2025 Overview (04/23/2025): Sensorineural hearing loss bilaterally; Note: Date Diagnosed: 08/23/2015 11:58 AM (389.18) Sensorineural hearing loss, bilateral; Note: Date Diagnosed: 08/23/2015 11:35 AM (H90.3) Encounters Date Type Department Care Team Description 06/12/2025 Refill [facility] [address] [facility] [address] [place] [phone] Dave Gillespie MD 04/28/2025 10:20 AM EDT Office Visit [facility] [address] [phone] Dave Gillespie MD Stage 3b chronic kidney disease (HCC) (Primary Dx); Anemia of chronic renal failure; Essential hypertension; Vitamin D deficiency, not otherwise specified; Secondary hyperparathyroidism (HCC); Chronic metabolic acidosis; Hypomagnesemia; Hyperoxaluria; Personal history of other malignant neoplasm of colon; Short bowel syndrome, not otherwise specified; Cervical radiculopathy; Idiopathic osteoarthritis; Malignant neoplasm of ascending colon (HCC) 04/22/2025 Orders Only [facility] [address] [phone] Dave Gillespie MD 04/22/2025 Orders Only [facility] [address] [phone] Dave Gillespie MD Stage 3b chronic kidney disease (HCC); Short bowel syndrome, not otherwise specified; Hyperoxaluria; Hypomagnesemia; Chronic metabolic acidosis; Secondary hyperparathyroidism (HCC); Calculus of kidney and ureter 04/20/2025 Office Communication [facility] [address] [phone] Jyoti Palm 04/16/2025 Refill [facility] [address] [facility] [address] [place] [address] Dave Gillespie MD from Last 3 Months Immunizations Immunization Administration Dates Next Due DTaP / Hep B / IPV 03/08/2014 H1N1 All Forms 10/10/2009 Hep A, Unspecified 03/08/2014,08/03/2013 Hep B, Unspecified 03/08/2014,09/08/2013, 013 Influenza Split High Dose Pr eservative Free IM 08/18/2019,08/05/2018 Influenza Vaccine, Quadrival ent, Adjuvanted 08/08/2023,08/08/2022 Influenza, Quadrivalent, Pre servative Free 09/09/2017 Influenza, Quadrivalent, Wit h Preservative 09/01/2019,08/08/2016,08/05/2015 Influenza, Trivalent, Adjuvanted 08/15/2024 Influenza, Unspecified 09/10/2017,2015,08/18/2014,09/17,10/26/2010,08/18/2009 Moderna SARS-COV-2 08/10/2021,02/02/2021, 021 Pneumococcal Conjugate 13-Valent 08/08/2016,07/19,09/28/2014 Pneumococcal Polysaccharide 09/01/2019, 3 Shingrix 03/13/2019,12/12/2018 Td 08/21/2021 Td, Unspecified 07/17/2012,11/18/2001 Tdap 02/07/2018 Zoster 03/19/2017,12/19/2016 Family History Medical History Relation Comments Heart [...] Sign Reading Time Taken Comments Blood Pressure 126/74 04/28/2025 10:30 AM EDT Pulse 68 10/22/2024 11:36 AM EST Temperature - - Respiratory Rate - - Oxygen Saturation 96% 10/23/2023 9:54 AM EST Inhaled Oxygen Concentration - - Weight 52.2 kg (115 lb) 04/28/2025 10:30 AM EDT Height 154.9 cm (5' 1 ) 10/23/2023 9:54 AM EST Body Mass Index 21.73 10/23/2023 9:54 AM EST Plan of Treatment Upcoming Encounters Date Type Department Care Team (Late st Contact Info) Description 10/27/2025 10:00 AM EST Office Visit [facility] [address] [facility] [address] [place] [address] Dave Gillespie MD [address] [facility] [address] [place] [phone] Health Maintenance Due Date Last Done Comments Breast Cancer Screening 1950 Colorectal Cancer Screening: Annual FOBT 02/14/2000 Colorectal Cancer Screening: Colonoscopy 02/14/2000 Colorectal Cancer Screening: Sigmoidoscopy 02/14/2000 Influenza Vaccine (#1) 2025 , 08/08/2023, 08/08/2022, Additional history exists Hepatitis B Vaccine Aged Out 03/08/2014, 03/08/2014, 09/08/2013, Additional history exists No longer eligible based on patient's age to complete this topic Pneumococcal Vaccine: 50+ Years Completed 09/01/2019, 08/08/2016, 07/30/2016, Additional history exists Pneumococcal Vaccine: Peds (0 to 5 Years) and At-Risk Patients (6 to 49 Years) Discontinued 09/01/2019, 08/08/2016, 07/30/2016, Additional history exists Procedures Procedure Name Priority Date/Time Associated Diagnosis Comments CITRIC ACID, 24 HR URINE (W/O CREATININE) Routine 04/22/2025 10:15 AM EDT URIC ACID, URINE, 24 HOUR Routine 04/22/2025 10:15 AM EDT PTH, INTACT Routine 04/20/2025 12:08 PM EDT MAGNESIUM Routine 04/20/2025 12:08 PM EDT PHOSPHATE ( PHOSPHORUS) Routine 04/20/2025 12:08 PM EDT URIC ACID Routine 04/20/2025 12:08 PM EDT VITAMIN D 25 HYDROXY Routine 04/20/2025 12:08 PM EDT CALCIUM, URINE, RANDOM Routine 12:08 PM EDT PROTEIN / CREATININE RATIO, URINE Routine 04/20/2025 12:08 PM EDT COMPREHENSIVE METABOLIC PANEL Routine 04/20/2025 12:08 PM EDT CBC AND DIFFERENTIAL Routine 04/20/2025 12:08 PM EDT from Last 3 Months Results * (ABNORMAL) Citric Acid, 24 HR Urine (w/o Creatinine) (04/22/2025 10:15 AM EDT) Citric Acid, Urine 26 Undefined mg/L [facility] Comment: For proper preservation, the pH of urine for analysis of oxalate or citric acid must be <3.0. Specimen received was not preserved correctly, therefore results may be questionable. Citric Acid, 24hr Urine 23(L) 320 - 1,240 mg/24 hr [facility] 04/22/2025 10:1 5 AM EDT 04/22/2025 Narrative [facility] - 04/27/2025 7:05 AM EDT Test(s) 165717-[id number] Acid, Urine was developed and its performance characteristics determined by [facility]. It has not been cleared or approved by the Food and Drug Administration. us Dave Gillespie MD LAB URINE ORDERABLES Final Re sult [facility] [address] [place] [address] * Urine Uric Acid, 24 hour (04/22/2025 10:15 AM EDT) URIC ACID, URINE RND 25.2 Not Estab. mg/dL [facility] Uric Acid, 24H Ur 226.8 88.9 - 568.5 mg/24 hr [facility] 04/22/2025 10:1 5 AM EDT 04/22/2025 Dave Gillespie MD LAB URINE ORDERABLES Final Re sult Performing Organization Address [facility]/ZIP Co de Phone Number [facility] [address] [place] [address] * Protein, Total, Random Urine w/Creatinine (Protein/Creat Ratio) (04/20/2025 12:08 PM EDT) Creatinine, Ur 105.0 Not Estab. mg/dL [facility] Protein, Ur 9.0 Not Estab. mg/dL [facility] Urine Protein/Creatin ine Ratio 86 0 - 200 mg/g creat [facility] 04/20/2025 12:0 8 PM EDT 04/20/2025 Dave Gillespie MD LAB URINE ORDERABLES Final Re sult Performing Organization Address [facility]/ZIP Co de Phone Number [facility] [address] [place] [address] * Calcium, urine, random (04/20/2025 12:08 PM EDT) Calcium, Ur 2.3 Not Estab. mg/dL [facility] 04/20/2025 12:0 8 PM EDT 04/20/2025 Dave Gillespie MD LAB URINE ORDERABLES Final Re sult Performing Organization Address City/[facility]/ZIP Co de Phone Number [facility] [address] [place] [phone] * Vitamin D 25 Hydroxy (04/20/2025 12:08 PM EDT) Pathologist [facility] Vitamin D, 25-OH, Total 36.5 30.0 - 100.0 ng/mL [facility] Comment: Vitamin D deficiency has been defined by the [place] of [employer] and an Endocrine Society practice guideline as a level of serum 25-OH vitamin D less than 20 ng/mL (1,2). The Endocrine Society went on to further define vitamin D insufficiency as a level between 21 and 29 ng/mL (2). 1. IOM ([place] of [employer]). 2010. Dietary reference intakes for calcium and D. [place]: The National Academies Press. 2. Charmaine MF, Severino LERMA, Holger PALOMO, et al. Evaluation, treatment, and prevention of vitamin D deficiency: an Endocrine Society clinical practice guideline. JCEM. 2010; 96(7):1911-30. 04/20/2025 12:0 8 PM EDT 04/20/2025 us Dave Gillespie MD LAB BLOOD ORDERABLES Final Re sult [facility] [address] [place] [address] * (ABNORMAL) CBC and Differential (04/20/2025 12:08 PM EDT) Pathologist [facility] WBC 6.7 3.4 - 10.8 x10E3/uL [facility] RBC 3.86 3.77 - 5.28 x10E6/uL [facility] Hemoglobin 12.4 11.1 - 15.9 g/dL [facility] Hematocrit 37.9 34.0 - 46.6 % [facility] MCV 98(H) 79 - 97 fL [facility] MCH 32.1 26.6 - 33.0 pg [facility] MCHC 32.7 31.5 - 35.7 g/dL [facility] RDW 12.3 11.7 - 15.4 % [facility] Platelets 221 150 - 450 x10E3/uL [facility] Neutrophils Relative 63 Not Estab. % [facility] Lymphocytes Relative 22 Not Estab. % [facility] Monocytes 12 Not Estab. % [facility] Eosinophils Relative 2 Not Estab. % [facility] Basophils Relative 1 Not Estab. % [facility] Neutrophils Absolute 4.2 1.4 - 7.0 x10E3/uL [facility] Lymphocytes Absolute 1.5 0.7 - 3.1 x10E3/uL [facility] Monocytes Absolute 0.8 0.1 - 0.9 x10E3/uL [facility] Eosinophils Absolute 0.1 0.0 - 0.4 x10E3/uL [facility] Basophils Absolute 0.1 0.0 - 0.2 x10E3/uL [facility] Immature Granulocytes 0 Not Estab. % [facility] Immature Grans (Absolute) 0.0 0.0 - 0.1 x10E3/uL [facility] 04/20/2025 12:0 8 PM EDT 04/20/2025 us Dave Gillespie MD LAB BLOOD ORDERABLES Final Re sult [facility] [address] [place] [address] * Uric Acid (04/20/2025 12:08 PM EDT) Uric Acid 7.9 3.1 - 7.9 mg/dL [facility] Comment:Therapeutic target f or gout patients: <6.0 04/20/2025 12:0 8 PM EDT 04/20/2025 Dave Gillespie MD LAB BLOOD ORDERABLES Final Re sult Performing Organization Address City/[facility]/ZIP Co de Phone Number [facility] [address] [place] [phone] * Phosphorus (04/20/2025 12:08 PM EDT) Phosphorus 4.1 3.0 - 4.3 mg/dL [facility] 04/20/2025 12:0 8 PM EDT 04/20/2025 Dave Gillespie MD LAB BLOOD ORDERABLES Final Re sult Performing Organization Address [facility] Co de Phone Number [facility] [address] [place] [address] * (ABNORMAL) PTH, Intact (04/20/2025 12:08 PM EDT) PTH 104(H) 15 - 65 pg/mL [facility] 04/20/2025 12:0 8 PM EDT 04/20/2025 Dave Gillespie MD LAB BLOOD ORDERABLES Final Re sult Performing Organization Address [facility] Co de Phone Number [facility] [address] [place] [address] * Magnesium (04/20/2025 12:08 PM EDT) Magnesium 1.8 1.6 - 2.3 mg/dL [facility] 04/20/2025 12:0 8 PM EDT 04/20/2025 us Dave Gillespie MD LAB BLOOD ORDERABLES Final Re sult [facility] [address] [place] [address] * (ABNORMAL) Comprehensive Metabolic Panel (04/20/2025 12:08 PM EDT) Pathologist [facility] Glucose 90 70 - 99 mg/dL [facility] BUN 21 8 - 27 mg/dL [facility] Creatinine 1.45(H) 0.57 - 1.00 mg/dL [facility] eGFR CKD-EPI CR 2020 38(L) >59 mL/min/1.7 3 [facility] BUN/Creatinine Ratio 14 12 - 28 [facility] Sodium 139 134 - 144 mmol/L [facility] Potassium 4.9 3.5 - 5.2 mmol/L [facility] Chloride 103 96 - 106 mmol/L [facility] Bicarbonate (CO2) 23 20 - 29 mmol/L [facility] Calcium 8.6(L) 8.7 - 10.3 mg/dL [facility] Total Protein 5.5(L) 6.0 - 8.5 g/dL [facility] Albumin 3.6(L) 3.8 - 4.8 g/dL [facility] Globulin 1.9 1.5 - 4.5 g/dL [facility] Total Bilirubin 0.2 0.0 - 1.2 mg/dL [facility] Alkaline Phosphatase 75 44 - 121 IU/L [facility] AST (SGOT) 38 0 - 40 IU/L [facility] ALT (SGPT) 42(H) 0 - 32 IU/L [facility] 04/20/2025 12:0 8 PM EDT 04/20/2025 us Dave Gillespie MD LAB BLOOD ORDERABLES Final Re sult [facility] [address] [place] [phone] from Last 3 Months Insurance [facility] Medicare [facility] Medicare Care Teams Grad Intern Relationship Specialty Start Date End Date Sarah Roe MD [address] [place] [phone] PCP - General Family Medicine 12/17/24
--- OUTSIDE RECORDS SUMMARY | 2025-06-22 09:27 | XMS_ITS | Encounter Summary ---
Author Organization [email or web address] Address [address] [place] [address] Care Team Providers Care Media Monitor Name Role Phone Sarah Roe MD Primary Care Provider [phone] Encounter Details Date Type Department Care Team (Late st Contact Info) Description 12/16/2024 Telephone [facility] [address] [place] [address] Sarah Roe MD [address] [place] [address] Social History Tobacco Use Types Packs/Day Years [...] [facility] [place] * Telephone Encounter - Mony Day RN [...] phone to try and speak with a [facility] Staff member. This magnetic tape typewriter operator will fax most recent labs to nephro at pt request. Pt also expressed concern at her recent diagnosis of gout, which is another form of arthritis which she already has in multiple areas. She is requesting a referral [facility] so [facility] can manage her arthritis of both knees, right thumb and now the gout. She receives cortisone injections at [facility] for her knees and PSS for her right thumb and feels one dr should be managing all of it. Pt was advised that the health center does as much as we can to [...] Tc from pt requesting to speak to manager control Mony. Pt would like to discuss health care concerns andpossibly switching providers for herself and daughter. Contact pt at [phone] documented in this encounter Plan of Treatment Not on file documented as of this encounter Visit Diagnoses Not on filedocumented in this encounter Additional Health Concerns Assessment Noted Time PHQ-9 Depression Total Score: 0 11/19/19 25 9:15 AM EST documented as of this encounter Care Teams Media Monitor Relationship Specialty Start Date End Date Sarah Roe MD [address] [place] [phone] PCP - General Family Medicine 09/19/15 documented as of this encounter
--- OUTSIDE RECORDS SUMMARY | 2025-06-22 09:27 | XMS_ITS | Clinical Summary ---
Author Organization [facility] Address [address] [place] [id number] Phone Support Name Relationship Address Phone Evin Barger Personal Relationship [address] [place] [address] Apolonia Mcallistersaba Personal Relationship [address] [place] [address] Care Team Providers Care Cyber Systems Engineer Name Role Phone Dave Gillespie MD Unavailable [phone] Antwan Muñoz MD Unavailable [phone] Sarah Roe MD Primary Care Provider [phone] Allergies Active Allergy Reactions Criticality Noted Date Comments Bacitracin Dermatitis,Rash Low 12/14/2024 Erythromycin Base Unknown 02/19/2006 Iodinated Contrast Media Unknown 02/19/2006 Nsaids (Non-Steroidal Anti-Inflammatory Drug) Unknown 12/14/2024 Medications calcium carb-vit D3-magnesium 250-200-125 mg-unit-mg Cap Take by mouth. Active alendronate (FOSAMAX) 70 MG tablet Take 70 mg by mouth. Active ferrous furamate 324 mg (106 mg elemental) Tab Take by mouth. Active metoprolol tartrate (LOPRESSOR) 25 MG tablet Take 25 mg by mouth. Active omeprazole (PRILOSEC) 20 MG capsule Take 20 mg by mouth. Active pyridoxine, vitamin B6, (B-6) 100 MG tablet Take 100 mg by mouth. Active vitamin E 400 UNIT capsule Take 400 Units by mouth. Active acetaminophen (TYLENOL) 500 MG tablet Take 1 tablet (500 mg total) by mouth every 6 (six) hours as needed for pain (specific location in comments). 20 tablet 11/11/20 20 Active Medication-Free Text ENTIVIO monthly infusions Q every four weeks. Next admin 11/22/2020 Active BETA CAROTENE ORAL Take by mouth. Active multivitamin (MULTI-DAY ORAL) Take by mouth. Active riboflavin, vitamin B2, (CYTO B-2 ORAL) Take by mouth. Active PARoxetine (PAXIL) 40 MG tablet 1 tablet every morning. 03/21/20 23 Active furosemide (LASIX) 20 MG tablet Take 20 mg by mouth daily. 10/26/20 21 Active loperamide (IMODIUM A-D) 2 mg tablet Take 2 tablets by mouth as needed. Active zinc gluconate 50 mg tablet Take 1 tablet by mouth every morning. Active diphenoxylate-atropine (LOMOTIL) 2.5-0.025 mg per tablet TAKE ONE TABLET BY MOUTH FOUR TIMES DAILY NEEDED 03/05/20 23 Active COPPER ORAL Take 2 mg by mouth daily. Active cyanocobalamin, vitamin B-12, (VITAMIN B-12 INJ) Inject as directed. Once monthly Active ergocalciferol (DRISDOL) 50,000 unit capsuleIndications:Seco ndary hyperparathyroidism Take 1 capsule (50,000 Units total) by mouth 3 (three) times a week. 01/29/20 24 Active cholecalciferol (VITAMIN D3) 2,000 unit capsuleIndications:Seco ndary hyperparathyroidism Take 1 capsule (2,000 Units total) by mouth daily. 01/29/20 24 Active GATTEX ONE-VIAL 5 mg KitIndications:Short bowel syndrome Inject 1.3 mg under the skin daily. 1 kit 11 12/02/19 25 Active valACYclovir (VALTREX) 500 MG tablet Take 500 mg by mouth 2 (two) times a day. Active Active Problems Problem Noted Date Diagnosed Date Secondary hyperparathyroidism 03/16/2021 Assessment & Plan (02/04/2025 12:57 PM EDT): Being managed by renal. Assessment & Plan (01/29/2024 3:35 PM EDT): Being managed by renal. Assessment & Plan (04/16/2023 2:15 PM EDT): Following w/being managed by renal. Stage 3b chronic kidney disease 03/13/2021 Short bowel syndrome 08/05/2015 Assessment & Plan (02/04/2025 12:58 PM EDT): Clinically stable. On Gattex for short bowel syndrome which we are prescribing. Has done much better since starting on rx, weight/hydration/anemia better/stable. Following w/ GI, Dr. Muñoz. Assessment & Plan (01/29/2024 3:35 PM EDT): On Gattex for short bowel syndrome. Has done much better since starting on rx, weight/hydration/anemia better/stable. Following w/ GI, Dr. Muñoz. Is no longer able to get assistance. Advised to d/w GI whether there are any alternatives. Assessment & Plan (04/16/2023 2:04 PM EDT): On Gattex for short bowel syndrome. Has done much better since starting on rx, weight/hydration/anemia better/stable. Following w/ GI, Dr. Muñoz. Colon cancer 08/05/2015 Presbyopia 04/12/2015 Overview (10/25/2015): Presbyopia Inflammation of eyelid 04/12/2015 Overview (10/25/2015): Blepharitis; mild OU Conjunctivitis 03/23/2015 Overview (10/25/2015): Conjunctivitis; *See attached note in LMR; OS Bilateral cataracts 01/26/2015 Overview (10/25/2015): Bilateral cataracts; *See attached note in LMR; early Uncoded vitreous detachment OD ICD-9 379.21 04/2015 Overview (10/25/2015): vitreous detachment OD ICD-9 379.21; *See attached note in LMR Epiretinal membrane 01/21/2015 Overview (10/25/2015): Epiretinal membrane; *See attached note in LMR; OD Squamous cell carcinoma 10/26/2014 Overview (01/08/2015): Squamous cell carcinoma Essential hypertension 09/14/2014 3 Crohn's disease of small and large intestines with complication 06/04/2013 04/16/2023 Overview (04/16/2023): GI, Crohn's Disease, Chronic, Stable Last Assessment & Plan: June Barger is a 68 year old female with small bowel Crohn's disease complicated by h/o stage I T2N0 colorectal cancer (s/p right colectomy 06/2013) and multiple small bowel resections with only 66cms of remaining SB who is currently on vedolizumab q4 weeks (induced 09/12/16) for recurrence of small bowel disease on colonoscopy 06/2016. Her most recent evaluation with stool testing suggest remissive disease. The majority of her symptoms appear to be related to short-gut syndrome. Considering that she has roughly 66cm of small bowel remaining, she may be a candidate for Gattex. Her history of iron deficiency anemia likely due to combination of malabsorption and Ms. Barger's lack of small bowel due to multiple small bowel resections with 66 cm of remaining bowel as well as CKD. Her HgB is up after receiving IV iron and Procrit. She has an HBI 9 today and continues with her baseline of 6 liquid stools a day which is felt to be mainly secondary to her short gut syndrome. We would plan on performing a luminal evaluation to assess potential polyps as assess disease acitivty -We would recommend continuing vedolizumab at her current frequency -We would obtain a colonoscopy for a luminal evaluation -We will ask her to see the long term care administrator for potential therapy with tedegulitide. The patient will be able to see the team after her procedure -We will provide the influenza vaccination and a prescription for the shingrix vaccination. It is unclear as to whether she received her Pneumovax vaccination (PPSV23) -The remainder of the plan as documented in Dr. Chester Alonzo's note Osteoarthritis of knee 04/21/2013 Overview (01/08/2015): Osteoarthritis of knee Actinic keratosis 06/17/2012 Overview (01/08/2015): Actinic keratosis Seborrheic keratosis 06/17/2012 Overview (01/08/2015): Seborrheic keratosis - inflamed Dermatitis 06/17/2012 Overview (01/08/2015): Dermatitis Skin lesion 06/17/2012 Overview (01/08/2015): Skin lesion Anxiety 09/18/2011 04/16/2023 Lichen sclerosus et atrophicus 05/29/2011 Overview (01/08/2015): Lichen sclerosus - clinical dx Gastroesophageal reflux disease 05/29/2011 Overview (01/08/2015): Gastroesophageal reflux disease Anxiety 05/29/2011 Overview (01/08/2015): Anxiety Calculus of kidney 09/21/2009 Vitamin D deficiency 05/20/2008 Assessment & Plan (02/04/2025 12:57 PM EDT): Being managed by renal. Assessment & Plan (01/29/2024 3:35 PM EDT): Being managed by renal. Assessment & Plan (04/16/2023 2:15 PM EDT): Following w/being managed by renal. Crohn's disease, unspecified, without complicati ons 08/13/2006 04/16/2023 Crohn's disease 02/19/2006 Overview (01/08/2015): Crohns disease; Onset age 26, 3 bowel surgeries last surgery 2004, on Remicade on and off Age-related osteoporosis wit hout current pathological fracture Assessment & Plan (02/04/2025 12:57 PM EDT): Clinically stable. Had isolated fall without fracture. Has stopped alendronate - had taken from 2018 through 2023. Has had some dental extractions w/o incident. Last bone density in 05/2023 appeared improved/stable. Getting a good amount of calcium via diet/supplement. Will repeat bone density over the Summer @ [facility]. Assessment & Plan (01/29/2024 3:37 PM EDT): Clinically stable. No falls or fractures. Had bone density over the summer which appeared improved/stable. Getting a good amount of calcium via diet/supplement. Seeing dentist regularly, has needed some extractions, no planned procedures. Reiterated risks of ONJ. Renal function still ok for oral bisphosphonate. We discussed a possible drug holiday vs ongoing rx. Will see if we can ascertain in records exactly when she was started on rx. Will also call for recent labs. Assessment & Plan (04/16/2023 2:14 PM EDT): Clinically stable. No falls or fractures. Recalls fairly recent bone density, will try to obtain records. Getting a good amount of calcium via diet/supplement. Seeing dentist regularly. Renal function still ok for oral bisphosphonate. ? Consider drug holiday vs ongoing rx next year after has been treated for 5 yrs. Anemia Overview (04/16/2023): Follows w/ Dr. Cheng Raynaud's syndrome Family History Medical History Relation Comments Uncoded Family History Brother Hay fever Coronary artery disease Father Coronary Artery Disease Nephrolithiasis Father Hypothyroidism Mother Hypothyroidism Pulmonary edema Mother Pulmonary edema Uncoded Family History Mother ? congest angella heart failure Hip fracture Neg Hx Osteoporosis Neg Hx Relation Status Comments Brother Father Mother Social History Tobacco Use Types Packs/Day Years Used Date Smoking Tobacco: Never Smokeless Tobacco: Never Tobacco Cessation:Counseling Given: Not Answered Alcohol Use Standard Drinks/Week Comments Never 0 (1 standard drink = 0.6 oz pur e alcohol) Education Answer Date Recorded Are you interested in more education? Not on tommy e 03/15/2023 Are you concerned about learning? Not on file 03/15/2023 No 03/15/2023 No 03/15/2023 Digital Access Answer Date Recorded No 04/13/2023 No 04/13/2023 Reliable internet access at home? Not on file 04/13/2023 Device with a working camera? Not on file Comments Unknown Sex and Gender Information Value Date Recorded Sex Assigned at Female 10/16/2023 3:30 PM EST Legal Sex Female 6:47 PM EST Gender Identity Female 10/16/2023 3:30 PM EST Sexual Orientation Straight 10/16/2023 3: 30 PM EST Last Filed Vital Signs Vital Sign Reading Time Taken Comments Blood Pressure 132/64 01/29/2024 10:17 AM EDT Pulse 75 01/29/2024 10:17 AM EDT Temperature 36.7 C (98 F) 11/11/2020 12:22 PM EST Respiratory Rate 16 11/11/2020 12:22 PM EST Oxygen Saturation 97% 01/29/2024 10:17 AM EDT Inhaled Oxygen Concentration - - Weight 53.7 kg (118 lb 6.4 oz) 01/29/2024 10:17 AM EDT Height 156.8 cm (5' 1.73 ) 01/29/2024 10:17 AM E DT Body Mass Index 21.84 01/29/2024 10:17 AM EDT Plan of Treatment Upcoming Encounters Date Type Department Care Team (Late st Contact Info) Description 12/20/2025 1:10 PM EST Office Visit [facility] [address] [address] Lamberto Wright MD [address] [facility] [place] [address] [email or web address] 02/03/2026 10:00 AM EDT Office Visit [facility] [address] [place] [address] Albina Nguyen MD [address] [address] [email or web address] Health Maintenance Due Date Last Done Comments DEPRESSION SCREENING 1963 HEPATITIS C SCREENING 1969 COLOGUARD 02/14/1996 FIT TEST 02/14/1996 FOBT 02/14/1996 SIGMOIDOSCOPY 02/14/1996 VIRTUAL COLONOSCOPY 02/14/1996 COLONOSCOPY 12/27/2012 12/27/2010, 01/01/2007 COLORECTAL CANCER SCREENING 12/27/2012 COVID-19 VACCINE ( season) 2024 09/13/2023, 09/18/2022, 08/10/2021, Additional history exists BLOOD PRESSURE 07/31/2024 01/29/2024 RSV VACCINE (1 - 1-dose 75+ series) 2026 MAMMOGRAM 12/09/2026 12/09/2024, 07/19, 08/05/2018, Additional history exists LIPID PANEL 11/19/2029 11/19/2024, 08/19, 09/08/2018, Additional history exists Adult Td,Tdap Booster 08/21/2031 08/21/2021 , 02/07/2018, 07/17/2012, Additional history exists HEPATITIS A VACCINES Aged Out 03/08/2014, 08/03/20 13 No longer eligible based on patient's age to complete this topic ZOSTER VACCINES Completed 03/13/2019, 11/19, 03/19/2017, Additional history exists PNEUMOCOCCAL VACCINES (50+ years) Completed 09/01/2019, 08/08/2016, 09/28/2014, Additional history exists SMOKING STATUS SCREENING (Once After 26 Yrs) Completed 02/03/2025 OSTEOPOROSIS SCREENING INITIAL (ONE-TIME) Completed 02/04/2025, 05/14/2023, 07/17/2012 HIB VACCINES Aged Out No longer eligi ble based on patient's age to complete this topic MENINGOCOCCAL VACCINES (ACWY) Aged Out No longer eligible based on patient's age to complete this topic MENINGOCOCCAL VACCINES (B) Aged Out N o longer eligible based on patient's age to complete this topic Medical Devices Not on file Procedures Procedure Name Priority Date/Time Associated Diagnosis Comments BD DXA MONITORING Routine 02/04/2025 12: 59 PM EDT Age-related osteoporosis without current pathological fracture HISTORICAL LAB Routine 09/14/2014 3:51 PM EDT BI MAMMOGRAM SCREENING Routine 07/15/2012 10:04 AM EDT ENDOSCOPY, COLON 12/27/2010 1:04 PM EST from Last 3 Months or Most Recently Relevant to Health Maintenance Results * (ABNORMAL) Historical Lab (09/14/2014 3:51 PM EDT) Glucose 91 65 - 109 mg/dL [facility] BUN 23 7 - 25 mg/dL [facility] Creatinine 1.3(Abnor maxime H) 0.5 - 1.2 mg/dL [facility] BUN/Creat Ratio 17.7 6.0 - 25.[address] [facility] GFR (Glomerular Filtration Rate) 43.1 mL/min/1. 7 [facility] Comment: Chronic Kidney Disease Stages Stage 1 and 2 (Normal) > 60 mL/min/1.73 m2 Stage 3 30 - 59 mL/min/1.73 m2 Stage 4 15-29 mL/min/1.73 m2 Stage 5 < 15 mL/min/1.73 m2 If patient is multiply result by 1.2 Sodium 139 135 - 146 mmol/L [facility] Potassium 4.1 3.5 - 5.3 mmol/L [facility] Chloride 105 98 - 110 mmol/L [facility] CO2 27 21 - 33 mmol/L [facility] Anion Gap 7.0 5.0 - 20.[address] [facility] Total Protein 6.4 6.0 - 8.3 g/dL [facility] Albumin 3.8 3.2 - 6.0 g/dL [facility] Globulin 2.6 calc. [facility] A/G Ratio 1.5 0.8 - 2.[address] [facility] Calcium 9.0 8.6 - 10.6 mg/dL [facility] Total Bili 0.3 0.2 - 1.3 mg/dL [facility] Alk Phos 95 20 - 125 U/L [facility] AST 27 2 - 35 U/L [facility] ALT 33 2 - 40 U/L [facility] Cholesterol 106 100 - 199 mg/dL [facility] HDL 36(Abnorm ally L) 40 - 77 mg/dL [facility] Comment:L= non-HDL CHOL 70.0 mg/dL [facility] Comment:Goal is LDL Goal + 3 0 mg/dL TCHOL/HDL ratio 2.9 [facility] Comment: Cardiovascular Risk Assessment MEN WOMEN Risk Assessment 3.43 3.27 Below Average 4.97 4.44 Average 9.55 7.05 Above Average 23.39 11.04 3X Above Average Direct LDL w/billing 54 0 - 130 mg/dL [facility] Comment:L= Ferritin 13.5(Abno rmally L) 15.0 - 200.0 ng/mL [facility] 09/14/2014 3:51 PM EDT 09/14/2014 3:[address] [facility] - 09/15/2014 10:32 AM EDT Unless otherwise noted, Testing performed through [facility] [address] [place] [address] Jamie Marquez MD [employer] us Jamie Marquez MD LAB BLOOD ORDERABLES Fi nal Result [facility] [address] [place] [address] * DXA Peripheral (07/17/2012 10:00 PM EDT) Anatomical Region Laterality Modality Bone Density Bone Density 07/09/2012 3:17 PM EDT Narrative 07/17/2012 10:00 PM EDT Exam Number: [id number] Report Status: Signed Type: BONE DENS HIP \T\ SPINE [id number] Date/Time: 07/09/2012 15:17 Ordering Provider: JULIETTE ESTRADA [id number] - BONE DENS HIP & SPINE [id number] - 07/09/2012 ACCESSION NO: ([id number]) CLINICAL HISTORY: OSTEOPENIA REPORT: LUMBAR SPINE: The images suggest areas of sclerosis which may be confirmed on plain films of the lumbar spine if clinically necessary. The measured bone density is 0.867 g/cm2. The T-score is -1.6 and the Z-score is -0.1. At L1 which is relatively free of sclerosis the T-score is -2.6 and the Z-score is -1.3. There has been a 10.8% decrease in total lumbar spine measured bone density since a previous study of 05/03/04 and a 3.7% increase since the baseline study of 04/03/99. IMPRESSION: TOTAL LUMBAR SPINE MEASURED BONE DENSITY SHOWS OSTEOPENIA BUT AREAS OF SCLEROSIS MAY BE ARTIFACTUALLY INCREASING THE MEASURED BONE DENSITY. AT L1 BONE DENSITY CRITERIA FOR OSTEOPOROSIS ARE MET AND THE BONE DENSITY IS BELOW THE MEAN FOR AGE. THERE HAS BEEN A SIGNIFICANT 10.8% DECREASE IN TOTAL LUMBAR SPINE BONE DENSITY SINCE A PREVIOUS STUDY OF 05/03/04. THERE HAS BEEN A SIGNIFICANT 3.7% INCREASE IN TOTAL LUMBAR SPINE MEASURED BONE DENSITY SINCE THE BASELINE STUDY OF 04/03/99. REVIEW OF THE IMAGES SHOWS THE INCREASE IS NOT UNIFORM AMONG THE VERTEBRAL LEVELS AND SOME OF THE INCREASE MAY BE RELATED TO INCREASED SCLEROSIS. When interpreting please note that significant osteopenia is present if bone mineral density is more than 2 standard deviations below the mean for young adults (T-score lower than -2.00). This reduction increases risk of fractures. T-score lower than 2.50 meets bone density criteria for osteoporosis. Absolute criteria (T-scores) for interpreting lateral spine bone mineral density are not established, but results can be compared to age-matched controls (Z-scores). Interpretation of results must consider any vertebral collapse or focal sclerosis, which would increase its measured density. We exclude known collapsed vertebrae, but wedging, partial collapse and focal sclerosis may not be noticed on the scan and will falsely increase the measured density. On follow up scans, changes in bone mineral density smaller than 0.03 g/cm2 can be caused by changes in patient positioning. LEFT HIP: The total hip bone density is 0.805 g/cm2. The T-score is -1.1 and the Z-score is -0.1. The femoral neck bone density is 0.590 g/cm2. The T-score is -2.3 and the Z-score is -1.0. There has been a 6.9% decrease in total hip and a 10.4% decrease in femoral neck bone density since the previous study of 05/03/04. There has been a 2.6% decrease in total hip and a 5.7% decrease in femoral neck bone density since the baseline study of 04/03/99. CONCLUSION: SIGNIFICANT OSTEOPENIA AT THE FEMORAL NECK. THE TOTAL HIP SHOWS OSTEOPENIA. THE FEMORAL NECK BONE DENSITY IS BELOW THE MEAN FOR AGE. THERE HAS BEEN A SIGNIFICANT 6.9% DECREASE IN TOTAL HIP AND A SIGNIFICANT 10.4% DECREASE IN FEMORAL NECK BONE DENSITY SINCE A PREVIOUS STUDY OF 05/03/04. THERE HAS BEEN NO SIGNIFICANT CHANGE IN TOTAL HIP BUT A SIGNIFICANT 5.7% DECREASE IN FEMORAL NECK BONE DENSITY SINCE THE BASELINE STUDY OF 04/03/99. REVIEW OF THE IMAGES SHOWS NO OBVIOUS POSITIONING CHANGES TO ACCOUNT FOR REGIONAL VARIATION IN THE HIP. When interpreting please note that significant bone loss is present if bone mineral density is more than 2 standard deviations below the mean for young adults (T-score lower than -2.00). This reduction increases risk of fractures. Interpretation of results must consider any focal sclerosis or deformity of the hip which would increase its measured density. We exclude known focal sclerosis or deformity of the hip since this condition will falsely increase the measured density. On follow up scans, changes in bone mineral density smaller than 0.03 grams/cm2 can be caused by changes in patient positioning. PROVIDERS: SIGNATURES: ANTWAN HOLBROOK PAUL [id number] Procedure Note Sys, Conversion Provider Not In - 03/31/2015 Exam Number: [id number] Report Status: Signed Type: BONE DENS HIP \T\ SPINE [id number] Date/Time: 07/09/2012 15:17 Ordering Provider: JULIETTE ESTRADA [id number] - BONE DENS HIP & SPINE [id number] - 07/09/2012 ACCESSION NO: ([id number]) CLINICAL HISTORY: OSTEOPENIA REPORT: LUMBAR SPINE: The images suggest areas of sclerosis which may be confirmed on plain films of the lumbar spine if clinically necessary. The measured bone density is 0.867 g/cm2. The T-score is -1.6 and the Z-score is -0.1. At L1 which is relatively free of sclerosis the T-score is -2.6 and the Z-score is -1.3. There has been a 10.8% decrease in total lumbar spine measured bone density since a previous study of 05/03/04 and a 3.7% increase since the baseline study of 04/03/99. IMPRESSION: TOTAL LUMBAR SPINE MEASURED BONE DENSITY SHOWS OSTEOPENIA BUT AREAS OF SCLEROSIS MAY BE ARTIFACTUALLY INCREASING THE MEASURED BONE DENSITY. AT L1 BONE DENSITY CRITERIA FOR OSTEOPOROSIS ARE MET AND THE BONE DENSITY IS BELOW THE MEAN FOR AGE. THERE HAS BEEN A SIGNIFICANT 10.8% DECREASE IN TOTAL LUMBAR SPINE BONE DENSITY SINCE A PREVIOUS STUDY OF 05/03/04. THERE HAS BEEN A SIGNIFICANT 3.7% INCREASE IN TOTAL LUMBAR SPINE MEASURED BONE DENSITY SINCE THE BASELINE STUDY OF 04/03/99. REVIEW OF THE IMAGES SHOWS THE INCREASE IS NOT UNIFORM AMONG THE VERTEBRAL LEVELS AND SOME OF THE INCREASE MAY BE RELATED TO INCREASED SCLEROSIS. When interpreting please note that significant osteopenia is present if bone mineral density is more than 2 standard deviations below the mean for young adults (T-score lower than -2.00). This reduction increases risk of fractures. T-score lower than 2.50 meets bone density criteria for osteoporosis. Absolute criteria (T-scores) for interpreting lateral spine bone mineral density are not established, but results can be compared to age-matched controls (Z-scores). Interpretation of results must consider any vertebral collapse or focal sclerosis, which would increase its measured density. We exclude known collapsed vertebrae, but wedging, partial collapse and focal sclerosis may not be noticed on the scan and will falsely increase the measured density. On follow up scans, changes in bone mineral density smaller than 0.03 g/cm2 can be caused by changes in patient positioning. LEFT HIP: The total hip bone density is 0.805 g/cm2. The T-score is -1.1 and the Z-score is -0.1. The femoral neck bone density is 0.590 g/cm2. The T-score is -2.3 and the Z-score is -1.0. There has been a 6.9% decrease in total hip and a 10.4% decrease in femoral neck bone density since the previous study of 05/03/04. There has been a 2.6% decrease in total hip and a 5.7% decrease in femoral neck bone density since the baseline study of 04/03/99. CONCLUSION: SIGNIFICANT OSTEOPENIA AT THE FEMORAL NECK. THE TOTAL HIP SHOWS OSTEOPENIA. THE FEMORAL NECK BONE DENSITY IS BELOW THE MEAN FOR AGE. THERE HAS BEEN A SIGNIFICANT 6.9% DECREASE IN TOTAL HIP AND A SIGNIFICANT 10.4% DECREASE IN FEMORAL NECK BONE DENSITY SINCE A PREVIOUS STUDY OF 05/03/04. THERE HAS BEEN NO SIGNIFICANT CHANGE IN TOTAL HIP BUT A SIGNIFICANT 5.7% DECREASE IN FEMORAL NECK BONE DENSITY SINCE THE BASELINE STUDY OF 04/03/99. REVIEW OF THE IMAGES SHOWS NO OBVIOUS POSITIONING CHANGES TO ACCOUNT FOR REGIONAL VARIATION IN THE HIP. When interpreting please note that significant bone loss is present if bone mineral density is more than 2 standard deviations below the mean for young adults (T-score lower than -2.00). This reduction increases risk of fractures. Interpretation of results must consider any focal sclerosis or deformity of the hip which would increase its measured density. We exclude known focal sclerosis or deformity of the hip since this condition will falsely increase the measured density. On follow up scans, changes in bone mineral density smaller than 0.03 grams/cm2 can be caused by changes in patient positioning. PROVIDERS: SIGNATURES: ANTWAN HOLBROOK PAUL [id number] us Juliette Estrada DO IMG BD BONE DENSITY DEXA Fi nal Result * Mammogram Screening (07/15/2012 10:04 AM EDT) Anatomical Region Laterality Modality Breast Left, Breast Right, Breast Bilateral Mammography 07/14/2012 9:18 AM EDT Narrative 07/15/2012 10:04 AM EDT Exam Number: [id number] Report Status: Signed Type: AURELIA DIG SCREEN DREW G0202 Date/Time: 07/14/2012 09:18 Ordering Provider: JULIETTE ESTRADA 0800 - AURELIA DIG SCREEN DREW G0202 - 07/14/2012 ACCESSION NO: ([id number]) CLINICAL HISTORY: ROUTINE REPORT: . FINDINGS: Digital craniocaudal and mediolateral oblique views of each breast were performed. Computer assisted detection was used in the interpretation of this examination. The breast tissue is extremely dense, which could obscure a lesion on mammography. The breasts are generally symmetric. There is no evidence of a dominant mass on either side. There are no suspicious clustered microcalcifications, architectural distortions, or skin abnormalities. No significant change compared to exam of 07/11/2011, 06/29/2008. IMPRESSION: No specific mammographic evidence of malignancy. The breast tissue is extremely dense, which could obscure a lesion on mammography. BI-RAD CATEGORY: 1 - Negative RECOMMENDATION: Routine follow up LETTER: Normal A reminder letter will automatically be generated and sent to the patient with the target date for her next screening mammogram. SITE READ: 2 PROVIDERS: SIGNATURES: COOPER PRITCHETT ALVIN [id number] Procedure Note Sys, Conversion Provider Not In - 03/31/2015 Exam Number: [id number] Report Status: Signed Type: AURELIA DIG SCREEN DREW G0202 Date/Time: 07/14/2012 09:18 Ordering Provider: JULIETTE ESTRADA 0800 - AURELIA DIG SCREEN DREW G0202 - 07/14/2012 ACCESSION NO: ([id number]) CLINICAL HISTORY: ROUTINE REPORT: . FINDINGS: Digital craniocaudal and mediolateral oblique views of each breast were performed. Computer assisted detection was used in the interpretation of this examination. The breast tissue is extremely dense, which could obscure a lesion on mammography. The breasts are generally symmetric. There is no evidence of a dominant mass on either side. There are no suspicious clustered microcalcifications, architectural distortions, or skin abnormalities. No significant change compared to exam of 07/11/2011, 06/29/2008. IMPRESSION: No specific mammographic evidence of malignancy. The breast tissue is extremely dense, which could obscure a lesion on mammography. BI-RAD CATEGORY: 1 - Negative RECOMMENDATION: Routine follow up LETTER: Normal A reminder letter will automatically be generated and sent to the patient with the target date for her next screening mammogram. SITE READ: 2 PROVIDERS: SIGNATURES: COOPER PRITCHETT ALVIN [id number] us Juliette Estrada DO IMG MG EXAMS Final Resul t * ENDOSCOPY, COLON (12/27/2010 1:04 PM EST) 12/27/2010 1:04 PM EST Narrative 12/27/2010 1:04 PM EST Report Number: [id number] Report Status: Final Type: Colonoscopy Date: 12/27/2010 13:04 [facility] OPERATIVE PROCEDURE REPORT - 12/27/2010 PATIENT: June Barger MR#: [id number] BIRTHDATE: 1950 GENDER: female ENDOSCOPIST: Jalen Jones M.D. PROCEDURE: Colonoscopy with biopsy INDICATIONS: h/o Crohn's MEDICATIONS: Versed 4 mg IV, Fentanyl 125 micrograms IV DESCRIPTION OF PROCEDURE: After the risks and benefits of the procedure, including the risk of missed lesions, were thoroughly explained, informed consent was obtained. Digital rectal exam was performed and revealed no abnormalities. The EC-[id number] ([id number]) Pentax Colonoscope was introduced through the anus and advanced to the ileum, without difficulty. The quality of the prep was excellent. The instrument was then slowly withdrawn as the colon was fully examined. The terminal ileum appeared normal. There was very focal inflammation typical of Crohn's at the ileocecal valve. Biopsies were obtained. A normal appearing cecum, ileocecal valve, and appendiceal orifice were identified. The ascending, transverse, descending, sigmoid colon, and rectum appeared unremarkable. Random colonic biopsies were obtained. Retroflexed views in the rectum revealed Normal Retroflexion. The scope was then withdrawn from the patient and the procedure terminated. COMPLICATIONS: None ESTIMATED BLOOD LOSS: None ENDOSCOPIC IMPRESSION: Focal Crohn's ileitis at the ileocecal valve otherwise normal exam RECOMMENDATIONS: 1) Await pathology results REPEAT EXAM: 3 year(s) Colonoscopy. Jalen Jones M.D. CC: Cristiano Fine eSIGNED: Jalen Jones at 12/27/2010 01:49 PM OPERATIVE REPORT June Barger, [id number] Procedure Note Jalen Jones MD - 12/27/2010 1:04 PM EST Report Number: [id number] Report Status: Final Type: Colonoscopy Date: 12/27/2010 13:04 [facility] OPERATIVE PROCEDURE REPORT - 12/27/2010 PATIENT: June Barger MR#: [id number] BIRTHDATE: 1950 GENDER: female ENDOSCOPIST: Jalen Jones M.D. PROCEDURE: Colonoscopy with biopsy INDICATIONS: h/o Crohn's MEDICATIONS: Versed 4 mg IV, Fentanyl 125 micrograms IV DESCRIPTION OF PROCEDURE: After the risks and benefits of the procedure, including the risk of missed lesions, were thoroughly explained, informed consent was obtained. Digital rectal exam was performed and revealed no abnormalities. The EC-[id number] ([id number])Pentax Colonoscope was introduced through the anus and advanced to the ileum, without difficulty. The quality of the prep was excellent. The instrument was then slowly withdrawn as the colon was fully examined. The terminal ileum appeared normal. There was very focal inflammation typical of Crohn's at the ileocecal valve. Biopsies were obtained. A normal appearing cecum, ileocecal valve, and appendiceal orifice were identified. The ascending, transverse, descending, sigmoid colon, and rectum appeared unremarkable. Random colonic biopsies were obtained. Retroflexed views in the rectum revealed Normal Retroflexion. Thescope was then withdrawn from the patient and the procedure terminated. COMPLICATIONS: None ESTIMATED BLOOD LOSS: None ENDOSCOPIC IMPRESSION: Focal Crohn's ileitis at the ileocecal valve otherwise normal exam RECOMMENDATIONS: 1) Await pathology results REPEAT EXAM: 3 year(s) Colonoscopy. Jalen Jones M.D. CC: Cristiano Fine eSIGNED: Jalen Jones at 12/27/2010 01:49 PM OPERATIVE REPORT CharbelJune, [id number] us Conversion Provider Not In Sys GI PROCEDURE ORDE RABLES Final Result from Last 3 Months or Most Recently Relevant to Health Maintenance Insurance MEDICARE PART A & B [employer] SUPPLEMENT MEDICARE PART A & B [employer] MEDEX SUPPLEMENT MEDICARE PART A & B [employer] MEDEX SUPPLEMENT MEDICARE PART A & B [employer] MEDEX SUPPLEMENT MEDICARE PART A & B [employer] MEDEX SUPPLEMENT MEDICARE PART A & B [facility] MEDEX SUPPLEMENT MEDICARE PART A & B [employer] MEDEX SUPPLEMENT MEDICARE PART A & B [employer] MEDEX SUPPLEMENT MEDICARE PART A & B [employer] MEDEX SUPPLEMENT Care Teams Cyber Systems Engineer Relationship Specialty Start Date End Date Sarah Roe MD [address] [place] [id number] PCP - General Family Medicine 10/16/23 Dave Gillespie MD Nephrology 04/16/23 Antwan Muñoz MD [address] [place] [id number] Gastroenterology 04/16/23 Additional Source Comments The information contained in this document represents components of the legal health record. It is not the complete legal health record.[facility]
--- OUTSIDE RECORDS SUMMARY | 2025-06-22 09:27 | XMS_ITS | Clinical Summary ---
Author Organization [address] Address [address] [place] [address] Phone Care Team Providers Care Sweatband Maker Name Role Phone Sarah Roe MD Primary Care Provider [phone] Allergies Active Allergy Reactions Criticality Noted Date Comments Erythromycin 09/24/2024 Iodinated Contrast Media 09/24/2024 IV DYE Medications vedolizumab (Entyvio) 300 mg recon solnIndications:C rohn's disease of colon with complication ([facility]/HCC V24, [facility] V28) Infuse 5 mL (300 mg total) into a venous catheter every 28 (twenty-eight ) days. 5 mL 11 03/15/20 26 Active Hospital, Clinic, or Other Facility Administered Medication Ordered Dose Route Frequency Start Date End Date Status cyanocobalamin (VITAMIN B-12) injection 1,000 mcgIndications:Vitamin B 12 deficiency 1000 mcg IM Every 30 days 05/12/2025 Active cyanocobalamin (VITAMIN B-12) injection 1,000 mcgIndications:Vitamin B 12 deficiency 1000 mcg IM Every 30 days 05/12/2025 Active Encounters Date Type Department Care Team Description 06/17/2025 10:00 AM EDT Clinical Support Gastroenterology - [address] [phone] B12 deficiency (Primary Dx) 05/25/2025 Telephone Gastroenterology - [address] [place] [phone] Rosa Diggs MD Advice Only 05/12/2025 1:00 PM EDT Clinical Support Gastroenterology - [address] [facility] [address] [place] [phone] Vitamin B 12 deficiency (Primary Dx) 04/28/2025 Telephone Gastroenterology - [address] [place] [phone] Calos Byrne PA 04/13/2025 Telephone Gastroenterology - [address] [facility] [address] [phone] Calos Byrne PA 04/08/2025 10:00 AM EDT Clinical Support Gastroenterology - [address] [phone] Vitamin B 12 deficiency (Primary Dx) 03/26/2025 Telephone Gastroenterology - [address] [phone] Idania Griffin MA from Last 3 Months Surgical History Surgery [...] Care Team (Late st Contact Info) Description 06/28/2025 8:00 AM EDT Office Visit Gastroenterology - [address] [place] [phone] Nita White PA [address] [address] 07/16/2025 10:00 AM EDT Clinical Support Gastroenterology - [address] [facility] [address] [phone] 08/16/2025 10:00 AM EDT Clinical Support Gastroenterology - [address] [facility] [address] [phone] 10/05/2025 3:20 PM EST Office Visit Gastroenterology - [address] [facility] [address] [phone] Rosa Diggs MD [address] [phone] Health Maintenance Due Date Last Done Comments IPV Vaccines (2 of 3 - Adult catch-up series) 04/05/2014 03/08/2014 Breast Cancer Screening 08/05/2020 08/05/2018 Falls Risk Assessment 10/18/2022 Medicare Annual Wellness Visit 10/18/2022 Osteoporosis Screening (Bone Density Screening) 10/18/2022 Social Influencers of Health Screening 10/18/2022 Depression Screening 11/18/2024 COVID-19 Vaccine (7 - Moderna risk season) 2025 08/22/2024, 09/13/2023, 09/18/2022, Additional history exists Influenza Vaccine (#1) 2025 , 08/08/2023, 08/08/2022, Additional history exists Hypertension/CHF/CAD Annual BMP Blood Test 04/20/2026 04/20/2025, 04/20/2025, 03/19/2025, Additional history exists Cholesterol Screening (Lipid Panel) 11/19/2029 11/19/2024, 09/08/2018 DTaP,Tdap,and Td Vaccines (6 - Td or Tdap) 08/21/2031 08/21/2021, 02/07/2018, 03/08/2014, Additional history exists Colorectal Cancer Screening: Colonoscopy 03/25/2035 03/25/2025 Hepatitis A Vaccines Aged Out 03/08/2014, 08/03/20 13 No longer eligible based on patient's age to complete this topic Hepatitis B Vaccines Completed 03/08/2014, 03/08/2014, 09/08/2013, Additional history exists Hepatitis C Screening Completed 02/28/2017 Zoster Vaccines Completed 03/13/2019, 11/19, 03/19/2017, Additional history exists Pneumococcal Vaccine: 50+ Years Completed 09/01/2019, 08/08/2016, 07/30/2016, Additional history exists RSV Immunization Adult Patients Completed 04/21/2024 HIB Vaccines Aged Out No longer eligi [...] Procedure Name Priority Date/Time Associated Diagnosis Comments COLONOSCOPY Routine 03/25/2025 4:37 PM EDT COMPREHENSIVE METABOLIC PANEL Routine 03/19/2025 2:49 PM EDT 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
== END 2025-06-22 09:09 | disposition home or self-care (01) ==
LOC: HO.MAMMO 09:08
PROVIDERS: PCP Student in an Organized Health Care Education/Training Program; Visit Provider Internal Medicine Endocrinology, Diabetes & Metabolism
DX: M81.0 Age-related osteoporosis without current pathological fracture (principal)
CPT/HCPCS: 77080

== ENCOUNTER → 2025-06-22 09:15 | Outpatient (BNV) | payer MEDICARE, SELFPAY | PROVIDERS: PCP Student in an Organized Health Care Education/Training Program; Visit Provider Radiology Diagnostic Radiology | DX: E28.39 Other primary ovarian failure (principal) | CPT/HCPCS: 77080 ==